=== PATIENT | female | born 1985 | race Caucasian/White ===

== ENCOUNTER 2016-05-16 12:38 | Outpatient (RCR) | payer BC ==
[~2016-05-16 12:38] MED LIST: ATEN25TA PO; BIRTH CONTROL; CEPH500C PO; CPR500T PO; DOXY100C2 PO; HYDR-2890 PO; HYDR1TAB PO; MEDR150D8 IM; METH4TAB PO; MULT-141 PO
--- OUTSIDE RECORDS SUMMARY | 2016-05-16 12:41 | XMS REPORT | Continuity of Care Document ---
Author Author [facility] Organization [facility] Address Unknown Phone Unavailable Care Team Providers Care Dispersion Mixer Name Role Phone Taylor Pugh PCP [phone] Source Comments Some departments are not documenting in the electronic medical record. If you do not see the information that you expected, contact Release of Information in the Health Information Management department at [phone] for further assistance in locating additional records.[facility] Active Allergies and Adverse Reactions Allergen Noted Date Severity Reactions Comments Penicillins 01/05/2007 Allergy recorded in SMS: Penicillin Current Medications Not on file Active Problems Not on file Social History Tobacco Use Types Packs/Day Years Used Date Never Assessed Plan of Care Health Maintenance Due Date Last Done Comments Physical (Comprehensive) 1992 Exam Pertussis Vaccine 1996 Tetanus Vaccine 2002 Cervical Cancer Screening 2006 Influenza Vaccine 02/04/2016 Results from Last 3 Months Not on file
== END 2016-08-14 | disposition home or self-care (01) ==
LOC: CARD 12:38
PROVIDERS: ATTEND Nurse Practitioner Family
DX: R00.2 Palpitations (principal); R79.89 Other specified abnormal findings of blood chemistry
CPT/HCPCS: 93225; 93226

== ENCOUNTER 2017-04-11 15:52 | Outpatient (RCR) | payer BC | END 2017-06-08 15:14 | disposition home or self-care (01) | PROVIDERS: ATTEND Nurse Practitioner Family | DX: M92.51 Juvenile osteochondrosis of proximal tibia (principal); M92.52 Juvenile osteochondrosis of tibia tubercle ==

== ENCOUNTER 2017-08-15 19:03 | Emergency (ER) | payer BC ==
[~2017-08-15] VITALS: Ht 157.5 cm; Wt 61.7 kg
[2017-08-15] MEDS ORDERED: NS IV 1000 ML 1,000 ML IV ONE (19:26)
[2017-08-15] MEDS ORDERED: meTOprolol 5 MG/5 ML (LOPRESSOR) VIAL IV ONE (19:30)
[2017-08-15 19:47] LABS: BASOPHILS % (AUTO) 0 % (0-10); EOSINOPHILS # (AUTO) 0.1 10^3/uL (0.0-0.3); EOSINOPHILS % (AUTO) 1 % (0-10); HEMATOCRIT 43 % (35-52); HEMOGLOBIN 14.5 G/DL (11.5-16.0); LYMPHOCYTES # (AUTO) 2.4 X 10^3 (1.0-4.0); LYMPHOCYTES % (AUTO) 20 % (12-44); MEAN CORPUSCULAR HEMOGLOBIN 30 PG (25-34); MEAN CORPUSCULAR HGB CONC 34 G/DL (32-36); MEAN CORPUSCULAR VOLUME 88 FL (80-99); MEAN PLATELET VOLUME 11.1 FL (7.4-10.4); MONOCYTES # (AUTO) 0.9 X 10^3 (0.0-1.0); MONOCYTES % (AUTO) 8 % (0-12); NEUTROPHILS # (AUTO) 8.5 X 10^3 (1.8-7.8); NEUTROPHILS % (AUTO) 71 % (42-75); PLATELET COUNT 257 10^3/uL (130-400); RED BLOOD COUNT 4.85 10^6/uL (4.35-5.85); RED CELL DISTRIBUTION WIDTH 13.4 % (10.0-14.5); WHITE BLOOD COUNT 11.9 10^3/uL (4.3-11.0)
--- NOTE | 2017-08-15 19:51 | ED Cardiac General ---
History of Present Illness General Stated Complaint: MUSCLE WEAKNESS;HEART PROBLEMS Source: patient Exam Limitations: no limitations History of Present Illness Date Seen by Provider: Aug 15, 2017 Time Seen by Provider: 19:16 Initial Comments Here with report of palpitations and tachycardia. Has history of SVT. She has not been on any meds for this for several years and has been doing fine. She did drink some coffee today and did do a workout that was mostly weights and not cardio. Afterwards she had the episodes of dictations and tachycardia. These are still occurring. Denies recent surgery or trauma. She did have a trip last week in which she flew but these were shorter hops. Denies pain in her legs. Feels anxious with palpitations. Denies nausea, vomiting or diaphoresis. Timing/Duration: 1 hour Severity: moderate Location: central Activities at Onset: none Prior CP/Workup: other (SVT) Modifying Factors: worse with exercise, improves with rest NTG SL CUSTOMER LOYALTY REPRESENTATIVE: No ASA po CUSTOMER LOYALTY REPRESENTATIVE: No Associated Systoms: No Chest Pain, No Cough, No Fever/Chills, No Nausea/ Vomiting, No Shortness of Air, No Weakness Allergies and Home Medications Allergies Coded Allergies: Penicillins (Unverified Allergy, Unknown, 02/05/14) Home Medications Medroxyprogesterone Acetate 150 Mg/1 Ml Syringe, 150 MG IM monthly, (Reported) Multivit with Calcium,Iron,Min 1 Each Tablet, 1 EACH PO DAILY, (Reported) Patient Home Medication List Home Medication List Reviewed: Yes Review of Systems Constitutional: see HPI, No chills, No fever EENTM: No Symptoms Reported Respiratory: No Symptoms Reported Cardiovascular: See HPI, Denies Chest Pain, Denies Irregular Heart Rate, Palpitations, Denies Syncope Gastrointestinal: Denies Nausea, Denies Vomiting Genitourinary: No Symptoms Reported Musculoskeletal: no symptoms reported All Other Systems Reviewed Negative Unless Noted: Yes Past Wtldova-Hnsewy-Qbjgjf Hx Patient Social History Alcohol Use: Denies Use Recreational Drug Use: No Smoking Status: Never a Smoker Recent Foreign Travel: No Contact w/Someone Who Travel: No Recent Hopitalizations: No Immunizations Up To Date Date of Pneumonia Vaccine: Apr 05, 2011 Date of Influenza Vaccine: Mar 28, 2016 Seasonal Allergies Seasonal Allergies: Yes Surgeries History of Surgeries: Yes Surgeries: Section, Tonsillectomy Respiratory History of Respiratory Disorde: No Cardiovascular History of Cardiac Disorders: Yes Cardiac Disorders: Palpitations Neurological History of Neurological Disord: No Reproductive System Hx Reproductive Disorders: No Sexually Transmitted Disease: No HIV/AIDS: No Reviewed Nursing Assessment Reviewed/Agree w Nursing PMH: Yes Family Medical History Significant Family History: No Pertinent Family Hx Physical Exam Vital Signs Capillary Refill : General Appearance: No Apparent Distress, WD/WN HEENT: PERRL/EOMI, Pharynx Normal Neck: Non Tender, Supple Respiratory: Lungs Clear, Normal Breath Sounds Cardiovascular: No Edema, No Murmur, Tachycardia (105-120 and sinus on monitor) Gastrointestinal: Normal Bowel Sounds, Non Tender, Soft Extremity: Normal Range of Motion, Non Tender Neurologic/Psychiatric: Alert, Oriented x3 Skin: Normal Color, Warm/Dry Progress/Results/Core Measures Results/Orders Lab Results Laboratory Tests Test 08/15/17 19:37 Range/Units White Blood Count 11.9 H 4.3-11.0 10^3/uL Red Blood Count 4.85 4.35-5.85 10^6/uL Hemoglobin 14.5 11.5-16.0 G/DL Hematocrit 43 35-52 % Mean Corpuscular Volume 88 80-99 FL Mean Corpuscular Hemoglobin 30 25-34 PG Mean Corpuscular Hemoglobin Concent 34 32-36 G/DL Red Cell Distribution Width 13.4 10.0-14.5 % Platelet Count 257 130-400 10^3/uL Mean Platelet Volume 11.1 H 7.4-10.4 FL Neutrophils (%) (Auto) 71 42-75 % Lymphocytes (%) (Auto) 20 12-44 % Monocytes (%) (Auto) 8 0-12 % Eosinophils (%) (Auto) 1 0-10 % Basophils (%) (Auto) 0 0-10 % Neutrophils # (Auto) 8.5 H 1.8-7.8 X 10^3 Lymphocytes # (Auto) 2.4 1.0-4.0 X 10^3 Monocytes # (Auto) 0.9 0.0-1.0 X 10^3 Eosinophils # (Auto) 0.1 0.0-0.3 10^3/uL Basophils # (Auto) 0.0 0.0-0.1 10^3/uL D-Dimer < 0.27 0.00-0.49 UG/ML Sodium Level 138 135-145 MMOL/L Potassium Level 3.3 L 3.6-5.0 MMOL/L Chloride Level 103 98-107 MMOL/L Carbon Dioxide Level 24 21-32 MMOL/L Anion Gap 11 5-14 MMOL/L Blood Urea Nitrogen 9 7-18 MG/DL Creatinine 0.81 0.60-1.30 MG/DL Estimat Glomerular Filtration Rate > 60 BUN/Creatinine Ratio 11 Glucose Level 98 70-105 MG/DL Calcium Level 9.5 8.5-10.1 MG/DL Magnesium Level 2.0 1.8-2.4 MG/DL Total Bilirubin 0.6 0.1-1.0 MG/DL Aspartate Amino Transf (AST/SGOT) 27 5-34 U/L Alanine Aminotransferase (ALT/SGPT) 18 0-55 U/L Alkaline Phosphatase 71 40-136 U/L Troponin I < 0.30 <0.30 NG/ML Total Protein 7.4 6.4-8.2 GM/DL Albumin 4.7 H 3.2-4.5 GM/DL My Orders Orders - JENNIE ARAMBULA MD Metoprolol Tartrate Injection (Lopressor (08/15/17 19:30) Metoprolol Succinate (Xl) Tab (Toprol Xl (08/15/17 19:30) Cbc With Automated Diff (08/15/17 19:26) Comprehensive Metabolic Panel (08/15/17 19:26) Fibrin Degradation Products (08/15/17 19:26) Magnesium (08/15/17 19:26) Troponin I (08/15/17 19:26) Saline Lock/Iv-Start (08/15/17 19:26) Ns Iv 1000 Ml (Sodium Chloride 0.9%) (08/15/17 19:26) Medications Given in ED Current Medications Medications Dose Ordered Sig/Munira Route Start Time Stop Time Status Last Admin Dose Admin Metoprolol Succinate 25 mg ONCE ONCE PO 08/15/17 19:30 08/15/17 19:31 DC 08/15/17 19:53 25 MG Sodium Chloride 1,000 ml @ 0 mls/hr Q0M ONCE IV 08/15/17 19:26 08/15/17 19:29 DC 08/15/17 19:53 0 MLS/HR Progress Note : Progress Note Seen and evaluated. IV, labs, EKG ordered. Normal saline 1 L bolus. Orders for IV metoprolol 5 mg 1 followed by Toprol-XL 25 mg by mouth 1. Patient's heart rate is improving a little bit so we will hold IV version at this point and just give the oral. Monitor patient. 2028: Heart rate in the 70s and 90s and feeling much better. She will follow-up with her sock and stocking ironer. Prescription for outpatient metoprolol given. Discharged home with return precautions. Patient verbalize understanding instructions and agreement with plan. ECG Initial ECG Impression Date: Aug 15, 2017 Initial ECG Impression Time: 19:16 Initial ECG Rate: 83 Initial ECG Rhythm: Normal Sinus Comment Sinus rhythm with normal axis. No evidence of ST elevation IA. Similar to 09 May 2016. Interpreted by me. Departure Impression Impression: Primary Impression: Paroxysmal atrial tachycardia Disposition: HOME, SELF-CARE Condition: Improved Departure-Patient Inst. Decision time for Depature: 20:30 Referrals: JOSE WEBB APRN (PCP) Primary Care Physician [facility] (Family) Primary Care Physician Patient Instructions: Palpitations (DC), Paroxysmal Supraventricular Tachycardia (DC) Add. Discharge Instructions: Take medications as directed. Follow-up with your sock and stocking ironer within one week for recheck and further evaluation. Return for worse pain, fever, vomiting, weakness, breathing problems or other concerns as needed. You should limit caffeine use in your diet. Drink plenty of fluids and eat a normal diet otherwise. Scripts Metoprolol Tartrate (Metoprolol Tartrate) 25 Mg Tablet 25 MG PO BID, #60 TAB 0 Refills Prov: JENNIE ARAMBULA MD 08/15/17 JENNIE ARAMBULA MD Aug 15, 2017 19:51
[2017-08-15 20:07] LABS: ALANINE AMINOTRANSFERASE 18 U/L (0-55); ALBUMIN 4.7 GM/DL (3.2-4.5); ALKALINE PHOSPHATASE 71 U/L (40-136); BILIRUBIN,TOTAL 0.6 MG/DL (0.1-1.0); BUN/CREATININE RATIO 11; CALCIUM 9.5 MG/DL (8.5-10.1); CARBON DIOXIDE 24 MMOL/L (21-32); CHLORIDE 103 MMOL/L (98-107); CREATININE SERUM 0.81 MG/DL (0.60-1.30); GFR ESTIMATED > 60; GLUCOSE 98 MG/DL (70-105); POTASSIUM 3.3 MMOL/L (3.6-5.0); SODIUM 138 MMOL/L (135-145); TOTAL PROTEIN 7.4 GM/DL (6.4-8.2)
[2017-08-15] MEDS ORDERED: METO-333 PO (20:32)
[2017-08-15 20:49] VITALS: BP 111/79
== END 2017-08-15 20:49 | disposition home or self-care (01) ==
LOC: EDUNIT# 19:03 → ER 19:05
DX: I47.1 Supraventricular tachycardia (principal); Z88.0 Allergy status to penicillin; Z90.89 Acquired absence of other organs; Z87.59 Personal history of other complications of pregnancy, childbirth and the puerperium
CPT/HCPCS: 36415; 80053; 83735; 84484; 85025; 85379; 93005; 96360

== ENCOUNTER 2017-08-18 11:09 | Emergency (ER) | payer BC ==
[~2017-08-18] VITALS: Ht 160 cm; Wt 63.5 kg
[~2017-08-18 11:09] MED LIST changes: +METO-333 PO
--- OUTSIDE RECORDS SUMMARY | 2017-08-18 11:16 | XMS REPORT | Clinical Summary ---
Author Author [facility] Organization [facility] Address Unknown Phone Unavailable Care Team Providers Care Felting Machine Operator Helper Name Role Phone Taylor Pugh DO PCP Magalis Momin MD 100 Source Comments Some departments are not documenting in the electronic medical record. If you do not see the information that you expected, contact Release of Information in the Health Information Management department at [phone] for further assistance in locating additional records.[facility] Allergies Active Allergy Reactions Severity Noted Date Comments Penicillins 01/05/2007 Allergy recorded in SMS: Penicillin Current Medications Not on file Active Problems Not on file Social History Tobacco Use Types Packs/Day Years Used Date Never Assessed Sex Assigned at Date Recorded Not on file Last Filed Vital Signs Not on file Plan of Treatment Health Maintenance Due Date Last Done Comments PHYSICAL (COMPREHENSIVE) 1992 EXAM PERTUSSIS VACCINE 1996 HIV SCREENING 2000 TETANUS VACCINE 2002 CERVICAL CANCER SCREENING 2015 INFLUENZA VACCINE 03/05/2018 Results Not on filefrom Last 3 Months
--- OUTSIDE RECORDS SUMMARY | 2017-08-18 11:21 | XMS REPORT | Continuity of Care Document ---
Author Author [facility] Organization [facility] Address Unknown Phone Unavailable Allergies Active Description Code Type Severity Reaction Onset Reported/Identified Relationship to Patient Clinical Status Yes Penicillins [id number] Drug Allergy Unknown N/A 02/05/2014 Medications There is no data. 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 05/07/2011 Ot 462 ACUTE PHARYNGITIS 05/07/2011 Ot 528.3 CELLULITIS/ ABSCESS MOUTH 05/07/2011 Ot 780.2 SYNCOPE AND COLLAPSE 10/11/2011 Ot 493.90 ASTHMA, UNSPECIFIED 10/11/2011 Ot 786.2 COUGH 02/07/2012 Ot 620.2 OVARIAN CYST NEC/NOS 02/07/2012 Ot 789.04 ABDOMINAL PAIN, LEFT LOWER QUADRANT 02/05/2014 YONATHAN GEORGE DO Ot 599.70 HEMATURIA, UNSPECIFIED 02/05/2014 YONATHAN GEORGE DO Ot 789.04 ABDOMINAL PAIN, LEFT LOWER QUADRANT 05/10/2016 YONATHAN GEORGE DO Ot R00.2 PALPITATIONS 05/10/2016 YONATHAN GEORGE DO Ot R94.6 ABNORMAL RESULTS OF THYROID FUNCTION ALON 05/10/2016 YONATHAN GEORGE DO Ot R00.2 PALPITATIONS 05/10/2016 YONATHAN GEORGE DO Ot R94.6 ABNORMAL RESULTS OF THYROID FUNCTION ALON 06/15/2016 JOSE WEBB APRN Ot R00.2 PALPITATIONS 06/15/2016 JOSE WEBB APRN Ot R79.89 OTHER SPECIFIED ABNORMAL FINDINGS OF BLO 08/14/2016 JOSE WEBB APRN Ot R00.2 PALPITATIONS 08/14/2016 JOSE WEBB APRN Ot R79.89 OTHER SPECIFIED ABNORMAL FINDINGS OF BLO 03/17/2017 WEBB, JOSE R X RAY TECHNOLOGIST Ot 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 03/17/2017 JOSE WEBB R X RAY TECHNOLOGIST Ot 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 04/24/2017 WEBB, JOSE R X RAY TECHNOLOGIST Ot 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 04/24/2017 WEBBJOSE Wilkinson R X RAY TECHNOLOGIST Ot 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 Results Test Result Range Complete blood count (CBC) with automated white blood cell (WBC) differential - 05/09/16 23:30 Blood leukocytes automated count (number/volume) 8.3 10*3/uL 4.3-11.0 Blood erythrocytes automated count (number/volume) 4.96 10*6/uL 4.35-5.85 Venous blood hemoglobin measurement (mass/volume) 14.6 g/dL 11.5-16.0 Blood hematocrit (volume fraction) 44 % 35-52 Automated erythrocyte mean corpuscular volume 89 [foz_us] 80-99 Automated erythrocyte mean corpuscular hemoglobin (mass per erythrocyte) 29 pg 25-34 Automated erythrocyte mean corpuscular hemoglobin concentration measurement ( mass/volume) 33 g/dL 32-36 Automated erythrocyte distribution width ratio 13.2 % 10.0-14.5 Automated blood platelet count (count/volume) 234 10*3/uL 130-400 Automated blood platelet mean volume measurement 11.4 [foz_us] 7.4-10.4 Automated blood neutrophils/100 leukocytes 50 % 42-75 Automated blood lymphocytes/100 leukocytes 37 % 12-44 Blood monocytes/100 leukocytes 10 % 0-12 Automated blood eosinophils/100 leukocytes 2 % 0-10 Automated blood basophils/100 leukocytes 0 % 0-10 Blood neutrophils automated count (number/volume) 4.2 10*3 1.8-7.8 Blood lymphocytes automated count (number/volume) 3.1 10*3 1.0-4.0 Blood monocytes automated count (number/volume) 0.9 10*3 0.0-1.0 Automated eosinophil count 0.2 10*3/uL 0.0-0.3 Automated blood basophil count (count/volume) 0.0 10*3/uL 0.0-0.1 Fibrin D-dimer FEU measurement in platelet poor plasma (mass/volume) - 23:30 Fibrin D-dimer FEU measurement in platelet poor plasma (mass/volume) < ug/mL 0.00-0.49 Comprehensive metabolic panel - 05/09/16 23:30 Serum or plasma sodium measurement (moles/volume) 144 mmol/L 135-145 Serum or plasma potassium measurement (moles/volume) 3.6 mmol/L 3.6-5.0 Serum or plasma chloride measurement (moles/volume) 110 mmol/L 98-107 Carbon dioxide 24 mmol/L 21-32 Serum or plasma anion gap determination (moles/volume) 10 mmol/L 5-14 Serum or plasma urea nitrogen measurement (mass/volume) 11 mg/dL 7-18 Serum or plasma creatinine measurement (mass/volume) 0.77 mg/dL 0.60-1.30 Serum or plasma urea nitrogen/creatinine mass ratio 14 NRG Serum or plasma creatinine measurement with calculation of estimated glomerular filtration rate > NRG Serum or plasma glucose measurement (mass/volume) 88 mg/dL 70-105 Serum or plasma calcium measurement (mass/volume) 9.3 mg/dL 8.5-10.1 Serum or plasma total bilirubin measurement (mass/volume) 0.6 mg/dL 0.1-1.0 Serum or plasma alkaline phosphatase measurement (enzymatic activity/volume) 94 U/L 40-136 Serum or plasma aspartate aminotransferase measurement (enzymatic activity/ volume) 15 U/L 5-34 Serum or plasma alanine aminotransferase measurement (enzymatic activity/volume ) 10 U/L 0-55 Serum or plasma protein measurement (mass/volume) 7.0 g/dL 6.4-8.2 Serum or plasma albumin measurement (mass/volume) 4.8 g/dL 3.2-4.5 Magnesium - 05/09/16 23:30 Magnesium 2.5 mg/dL 1.8-2.4 Serum or plasma choriogonadotropin ( test) detection - 05/09/16 23:30 Serum or plasma choriogonadotropin ( test) detection NEGATIVE NEGATIVE Serum or plasma lithium measurement (moles/volume) - 05/09/16 23:30 BNP level 13.3 pg/mL <100.0 Serum or plasma troponin i.cardiac measurement (mass/volume) - 05/09/16 23:30 Serum or plasma troponin i.cardiac measurement (mass/volume) < ng/ mL <0.30 THYROID STIMULATING HORMONE - 05/09/16 23:30 THYROID STIMULATING HORMONE 5.53 u[iU]/mL 0.35-4.94 Urine drug screening test - 05/09/16 23:50 Urine phencyclidine detection by screening method NEGATIVE NEGATIVE Urine benzodiazepines detection by screening method NEGATIVE NEGATIVE Urine cocaine detection NEGATIVE NEGATIVE Urine amphetamines detection by screening method NEGATIVE NEGATIVE Urine methamphetamine detection by screening method NEGATIVE NEGATIVE Urine cannabinoids detection by screening method NEGATIVE NEGATIVE Urine opiates detection by screening method NEGATIVE NEGATIVE Urine barbiturates detection NEGATIVE NEGATIVE Screening urine tricyclic antidepressants detection NEGATIVE NEGATIVE Urine methadone detection by screening method NEGATIVE NEGATIVE Urine oxycodone detection NEGATIVE NEGATIVE Urine propoxyphene detection NEGATIVE NEGATIVE Complete blood count (CBC) with automated white blood cell (WBC) differential - 08/15/17 19:37 Blood leukocytes automated count (number/volume) 11.9 10*3/uL 4.3-11.0 Blood erythrocytes automated count (number/volume) 4.85 10*6/uL 4.35-5.85 Venous blood hemoglobin measurement (mass/volume) 14.5 g/dL 11.5-16.0 Blood hematocrit (volume fraction) 43 % 35-52 Automated erythrocyte mean corpuscular volume 88 [foz_us] 80-99 Automated erythrocyte mean corpuscular hemoglobin (mass per erythrocyte) 30 pg 25-34 Automated erythrocyte mean corpuscular hemoglobin concentration measurement ( mass/volume) 34 g/dL 32-36 Automated erythrocyte distribution width ratio 13.4 % 10.0-14.5 Automated blood platelet count (count/volume) 257 10*3/uL 130-400 Automated blood platelet mean volume measurement 11.1 [foz_us] 7.4-10.4 Automated blood neutrophils/100 leukocytes 71 % 42-75 Automated blood lymphocytes/100 leukocytes 20 % 12-44 Blood monocytes/100 leukocytes 8 % 0-12 Automated blood eosinophils/100 leukocytes 1 % 0-10 Automated blood basophils/100 leukocytes 0 % 0-10 Blood neutrophils automated count (number/volume) 8.5 10*3 1.8-7.8 Blood lymphocytes automated count (number/volume) 2.4 10*3 1.0-4.0 Blood monocytes automated count (number/volume) 0.9 10*3 0.0-1.0 Automated eosinophil count 0.1 10*3/uL 0.0-0.3 Automated blood basophil count (count/volume) 0.0 10*3/uL 0.0-0.1 Fibrin D-dimer FEU measurement in platelet poor plasma (mass/volume) - 19:37 Fibrin D-dimer FEU measurement in platelet poor plasma (mass/volume) < ug/mL 0.00-0.49 Comprehensive metabolic panel - 08/15/17 19:37 Serum or plasma sodium measurement (moles/volume) 138 mmol/L 135-145 Serum or plasma potassium measurement (moles/volume) 3.3 mmol/L 3.6-5.0 Serum or plasma chloride measurement (moles/volume) 103 mmol/L 98-107 Carbon dioxide 24 mmol/L 21-32 Serum or plasma anion gap determination (moles/volume) 11 mmol/L 5-14 Serum or plasma urea nitrogen measurement (mass/volume) 9 mg/dL 7-18 Serum or plasma creatinine measurement (mass/volume) 0.81 mg/dL 0.60-1.30 Serum or plasma urea nitrogen/creatinine mass ratio 11 NRG Serum or plasma creatinine measurement with calculation of estimated glomerular filtration rate > NRG Serum or plasma glucose measurement (mass/volume) 98 mg/dL 70-105 Serum or plasma calcium measurement (mass/volume) 9.5 mg/dL 8.5-10.1 Serum or plasma total bilirubin measurement (mass/volume) 0.6 mg/dL 0.1-1.0 Serum or plasma alkaline phosphatase measurement (enzymatic activity/volume) 71 U/L 40-136 Serum or plasma aspartate aminotransferase measurement (enzymatic activity/ volume) 27 U/L 5-34 Serum or plasma alanine aminotransferase measurement (enzymatic activity/volume ) 18 U/L 0-55 Serum or plasma protein measurement (mass/volume) 7.4 g/dL 6.4-8.2 Serum or plasma albumin measurement (mass/volume) 4.7 g/dL 3.2-4.5 Magnesium - 08/15/17 19:37 Magnesium 2.0 mg/dL 1.8-2.4 Serum or plasma troponin i.cardiac measurement (mass/volume) - 08/15/17 19:37 Serum or plasma troponin i.cardiac measurement (mass/volume) < ng/ mL <0.30 Encounters ACCT No. Visit Date/Time Discharge Status Pt. Type Provider Facility Loc./Unit Complaint [id number] 08/15/2017 19:05:00 08/15/2017 20:49:00 DIS Outpatient JENNIE ARAMBULA MD [facility] ER MUSCLE WEAKNESS;HEART PROBLEMS [id number] 04/11/2017 15:52:00 06/08/2017 15:14:00 DIS Outpatient JOSE WEBB APRN [facility] REHAB B KNEE PAIN; RENE -SCHLATTERS DISEASE OF LE'S [id number] 08/15/2016 12:30:00 08/15/2016 23:59:59 CLS Preadmit JOSE WEBB APRN [facility] CARD ABN TSH [id number] 05/16/2016 12:38:00 08/14/2016 00:01:00 DIS Outpatient JOSE WEBB APRN [facility] CARD ABN TSH [id number] 05/09/2016 23:16:00 05/10/2016 01:05:00 DIS Emergency YONATHAN GEORGE DO [facility] ER HEART RACING [id number] 02/05/2014 00:15:00 02/05/2014 01:41:00 DIS Emergency YONATHAN GEORGE DO [facility] ER ABD PAIN LEFT SIDE,BACK PAIN,NAUSEA [id number] 08/18/2017 11:12:00 ACT Emergency JENNIE ARAMBULA MD [facility] ER HX OF SVT,NEW MED REACTION VOMITING,SOA [id number] 02/07/2012 15:32:00 Document Registration [id number] 10/10/2011 23:59:00 Document Registration [id number] 05/06/2011 19:58:00 Document Registration
--- NOTE | 2017-08-18 11:56 | ED General ---
General Chief Complaint: Cardiac/General Problems Stated Complaint: HX OF SVT,NEW MED REACTION VOMITING,SOA Nursing Triage Note: PATIENT STATES THAT SHE WAS STARTED ON METOPROLOL TARTRATE 25MG BID ON MONDAY FOR SVT. SHE HAS HX OF SVT AND A PREVIOUS ABLATION. 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 SHE IS CONCERNED THAT SHE THREW UP HER MEDICINE. SHE IS STILL HAVIG A HARD TIME TAKING A DEEP BREATH. HR IS 50S, O2 SAT 98%. Nursing Sepsis Screen: No Definite Risk Source of Information: Patient, Family, Spouse Exam Limitations: No Limitations History of Present Illness Date Seen by Provider: Aug 18, 2017 Time Seen by Provider: 11:56 Initial Comments 32-year-old female patient presents to the emergency department with complaints of vomiting 1 this a.m. and diarrhea. Patient does report left lower rib pain. Patient states it is difficult to take a deep breath due to the increased left rib pain. Denies any known injury. Patient was seen in the emergency department on 08/15/17 for PSVT and was started on metoprolol tartrate 25 mg twice a day. Patient does have a history of previous ablation for SVT. 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 Timing/Duration: 4-6 Hours Modifying Factors: worse with Movement Allergies and Home Medications Allergies Coded Allergies: Penicillins (Unverified Allergy, Unknown, 02/05/14) Home Medications Medroxyprogesterone Acetate 150 Mg/1 Ml Syringe, 150 MG IM monthly, (Reported) Metoprolol Tartrate 25 Mg Tablet, 25 MG PO BID Prescribed by: JENNIE ARAMBULA on 08/15/172031 Multivit with Calcium,Iron,Min 1 Each Tablet, 1 EACH PO DAILY, (Reported) Ondansetron 8 Mg Tab.rapdis, 8 MG PO Q6H PRN for NAUSEA/VOMITING-1ST LINE Prescribed by: FREDERICK ANSARI on 08/18/17 1352 Patient Home Medication List Home Medication List Reviewed: Yes Constitutional: No chills, No diaphoresis, No dizziness, No fever, No malaise EENTM: no symptoms reported Respiratory: No cough, No dyspnea on exertion, No orthopnea, No phlegm, No short of breath (denies SOA, but states unable to take a full breath due to left rib pain), No stridor, No wheezing, other (Left rib pain inferior to the breast radiating around to the back) Cardiovascular: No chest pain, No edema, No palpitations, No syncope Gastrointestinal: No abdominal pain, No constipation, diarrhea, No hematemesis , No heartburn, loss of appetite, No melena, nausea, vomiting (x1 this AM) Genitourinary: no symptoms reported : No Musculoskeletal: see HPI Skin: no symptoms reported Psychiatric/Neurological: No Symptoms Reported All Other Systems Reviewed Negative Unless Noted: Yes (Negative excepted noted.) Past Fzbbwan-Rwqcry-Jbxyzk Hx Patient Social History Alcohol Use: Rarely Uses Recreational Drug Use: No Smoking Status: Former Smoker 2nd Hand Smoke Exposure: No Recent Foreign Travel: No Contact w/Someone Who Travel: No Recent Infectious Disease Expo: No Recent Hopitalizations: No Immunizations Up To Date Date of Pneumonia Vaccine: Apr 05, 2011 Date of Influenza Vaccine: Mar 28, 2016 Seasonal Allergies Seasonal Allergies: Yes Surgeries History of Surgeries: Yes (ablation for SVT) Surgeries: Section Respiratory History of Respiratory Disorde: No Cardiovascular History of Cardiac Disorders: Yes Cardiac Disorders: Palpitations Neurological History of Neurological Disord: No Reproductive System : No Hx Reproductive Disorders: No Sexually Transmitted Disease: No HIV/AIDS: No Female Reproductive Disorders: Denies Genitourinary History of Genitourinary Disor: No Gastrointestinal History of Gastrointestinal Di: No Musculoskeletal History of Musculoskeletal Dis: No Endocrine History of Endocrine Disorders: No HEENT History of HEENT Disorders: No Cancer History of Cancer: No Psychosocial History of Psychiatric Problem: No Integumentary History of Skin or Integumenta: No Blood Transfusions History of Blood Disorders: No Reviewed Nursing Assessment Reviewed/Agree w Nursing PMH: Yes Family Medical History Significant Family History: No Pertinent Family Hx Physical Exam Vital Signs Vital Signs - First Documented 08/18/17 11:18 Temp 98.0 Pulse 51 Resp 16 B/P (MAP) 138/79 (98) Pulse Ox 98 Capillary Refill : Less Than 3 Seconds General Appearance: No Apparent Distress, WD/WN HEENT: PERRL/EOMI, Pharynx Normal Neck: Full Range of Motion, Normal Inspection, Non Tender, Supple Respiratory: Lungs Clear, Normal Breath Sounds, No Accessory Muscle Use, No Respiratory Distress, Other (left anterior, lateral, and posterior 8th/9th ribs TTP without deformity or swelling.) Cardiovascular: Regular Rate, Rhythm, No Edema, No Murmur, Normal Peripheral Pulses Gastrointestinal: Normal Bowel Sounds, No Organomegaly, Non Tender, Soft Back: Normal Inspection, No CVA Tenderness Extremity: Normal Capillary Refill, No Calf Tenderness, No Pedal Edema Neurologic/Psychiatric: Alert, Oriented x3, Normal Mood/Affect Skin: Normal Color, Warm/Dry Progress/Results/Core Measures Suspected Sepsis Recent Fever Within 48 Hours: No Infection Criteria Present: None New/Unexplained Altered Menta: No Sepsis Screen: No Definite Risk Sepsis Diagnosis: SIRS Temperature:98.0 Pulse: 51 Respiratory Rate: 16 Laboratory Tests 08/18/17 12:27: White Blood Count 7.4 Blood Pressure 138 /79 Mean: 98 Laboratory Tests 08/18/17 12:27: Creatinine 0.76, Platelet Count 230, Total Bilirubin 0.6 Results/Orders Lab Results My Orders Medications Given in ED Vital Signs/I&O Capillary Refill : Less Than 3 Seconds Blood Pressure Mean: 98 ECG Initial ECG Impression Date: Aug 18, 2017 Initial ECG Impression Time: 12:18 Initial ECG Rate: 51 Initial ECG Rhythm: S.Arcadio Initial ECG Intervals: Normal Initial ECG Impression: Normal Initial ECG Comparisson: Unchanged Comment Sinus bradycardia. Left atrial abnormality may be related to age and normally. ECG reviewed with Dr. Montano. Diagnostic Imaging Diagonstic Imaging: Xray Plain Films/CT/US/NM/MRI: chest Comments FINDINGS: PA and lateral chest. The lungs are well aerated. There are no infiltrates. There are no masses. The heart is not enlarged. There is no hilar adenopathy. No pneumothorax or pleural effusion. No bony abnormalities. IMPRESSION: Normal PA and lateral chest. Dictated by: Dictated on workstation # [id number] Reviewed: Reviewed by Me (radiology report reviewed by me) Departure Communication (Admissions) Progress Notes All laboratory and diagnostic findings discussed with the patient and family. Patient reports feeling much better with medications. Plan for discharge to home. Patient to return immediately for worsened symptoms or any other concerns. Impression Impression: Primary Impression: Nausea and vomiting Qualified Codes: R11.2 - Nausea with vomiting, unspecified Additional Impressions: Diarrhea Qualified Codes: R19.7 - Diarrhea, unspecified Sprained rib Qualified Codes: S23.41XA - Sprain of ribs, initial encounter History of PSVT (paroxysmal supraventricular tachycardia) Disposition: HOME, SELF-CARE Condition: Improved Departure-Patient Inst. Decision time for Depature: 13:51 Referrals: JOSE WEBB APRN (PCP) Primary Care Physician [facility] (Family) Primary Care Physician Patient Instructions: Viral Gastroenteritis, Adult (DC) Add. Discharge Instructions: All discharge instructions reviewed with patient and/or family. Voiced understanding. Medications as instructed. Tylenol extra strength over-the- counter as directed for pain. Ibuprofen 800 mg by mouth every 8 hours as needed for pain. Ice packs or heating pads as needed. Consider seeing a chiropractor for the rib sprain if pain continues. Avoid heavy lifting, pushing , pulling, or twisting for 3-5 days. Increase activity as tolerated. Follow- up with Amelia Webb APRN on Monday as previously scheduled. Return to the emergency department immediately for worsened symptoms, chest pain, palpitations , vomiting, vomiting blood, rectal bleeding, black stools, diarrhea, abdominal swelling, fever, or any other concerns. Scripts Ondansetron (Ondansetron Odt) 8 Mg Tab.rapdis 8 MG PO Q6H Y for NAUSEA/VOMITING-1ST LINE, #14 TAB 0 Refills Prov: FREDERICK ANSARI 08/18/17 Work/School Note: Work Release Form Date Seen in the Emergency Department: Aug 18, 2017 Return to Work: Aug 19, 2017 Restrictions: Return-No Fever (24hrs), Return-No Vomiting(24hrs) FREDERICK ANSARI Aug 18, 2017 11:56
[2017-08-18] MEDS ORDERED: NS IV 1000 ML 1,000 ML IV ONE (12:03)
[2017-08-18] MEDS ORDERED: FAMOTIDINE 20MG/2ML IV (PEPCID) IV STA (12:03)
[2017-08-18] MEDS ORDERED: ONDANSETRON 4 MG/2 ML (SDV) Z0FRAN IVP ONE (12:15)
[2017-08-18] MEDS ORDERED: KETOROLAC 30 MG/ML VIAL IVP STA (12:23)
[2017-08-18] MEDS ORDERED: ORPHENADRINE 60 MG/2 ML (NORFLEX) AMP IV STA (12:23)
[2017-08-18 12:38] LABS: BASOPHILS % (AUTO) 1 % (0-10); EOSINOPHILS # (AUTO) 0.1 10^3/uL (0.0-0.3); EOSINOPHILS % (AUTO) 2 % (0-10); HEMATOCRIT 40 % (35-52); HEMOGLOBIN 13.4 G/DL (11.5-16.0); LYMPHOCYTES # (AUTO) 2.4 X 10^3 (1.0-4.0); LYMPHOCYTES % (AUTO) 33 % (12-44); MEAN CORPUSCULAR HEMOGLOBIN 30 PG (25-34); MEAN CORPUSCULAR HGB CONC 33 G/DL (32-36); MEAN CORPUSCULAR VOLUME 91 FL (80-99); MEAN PLATELET VOLUME 11.5 FL (7.4-10.4); MONOCYTES # (AUTO) 0.7 X 10^3 (0.0-1.0); MONOCYTES % (AUTO) 9 % (0-12); NEUTROPHILS # (AUTO) 4.1 X 10^3 (1.8-7.8); NEUTROPHILS % (AUTO) 55 % (42-75); PLATELET COUNT 230 10^3/uL (130-400); RED BLOOD COUNT 4.42 10^6/uL (4.35-5.85); RED CELL DISTRIBUTION WIDTH 13.1 % (10.0-14.5); WHITE BLOOD COUNT 7.4 10^3/uL (4.3-11.0)
[2017-08-18 12:43] LABS: BILIRUBIN,URINE NEGATIVE (NEGATIVE); CLARITY,URINE CLEAR; COLOR,URINE YELLOW; GLUCOSE, URINE (UA) NEGATIVE (NEGATIVE); KETONES,URINE NEGATIVE (NEGATIVE); LEUKOCYTE ESTERASE ,URINE NEGATIVE (NEGATIVE); NITRITE,URINE NEGATIVE (NEGATIVE); PH,URINE 7 (5-9); PROTEIN,URINE NEGATIVE (NEGATIVE); UROBILINOGEN,URINE NORMAL (NORMAL)
[2017-08-18 12:50] LABS: BACTERIA,URINE NEGATIVE /HPF
--- NOTE | 2017-08-18 12:50 | Diagnostic Imaging Report ---
INDICATION: Shortness of breath over the last several days. COMPARISON: 05/10/2016. FINDINGS: PA and lateral chest. The lungs are well aerated. There are no infiltrates. There are no masses. The heart is not enlarged. There is no hilar adenopathy. No pneumothorax or pleural effusion. No bony abnormalities. IMPRESSION: Normal PA and lateral chest. Dictated by: Dictated on workstation # [id number]
[2017-08-18 12:59] LABS: ALANINE AMINOTRANSFERASE 17 U/L (0-55); ALBUMIN 4.2 GM/DL (3.2-4.5); ALKALINE PHOSPHATASE 53 U/L (40-136); BILIRUBIN,TOTAL 0.6 MG/DL (0.1-1.0); BUN/CREATININE RATIO 14; CALCIUM 8.9 MG/DL (8.5-10.1); CARBON DIOXIDE 24 MMOL/L (21-32); CHLORIDE 105 MMOL/L (98-107); CREATINE KINASE 167 U/L (29-168); CREATININE SERUM 0.76 MG/DL (0.60-1.30); GFR ESTIMATED > 60; GLUCOSE 91 MG/DL (70-105); LIPASE 10 U/L (8-78); POTASSIUM 3.9 MMOL/L (3.6-5.0); SODIUM 139 MMOL/L (135-145); TOTAL PROTEIN 6.6 GM/DL (6.4-8.2)
[2017-08-18 13:20] LABS: CREATINE KINASE MB 1.1 NG/ML (<6.6); MYOGLOBIN SERUM 32.4 NG/ML (10.0-92.0); TSH (THYROID ANALYZER) 1.56 UIU/ML (0.35-4.94)
[2017-08-18] MEDS ORDERED: ONDA8TAB13 PO (13:52)
[2017-08-18 14:05] VITALS: BP 138/79
== END 2017-08-18 14:06 | disposition home or self-care (01) ==
LOC: EDUNIT# 11:09 → ER 11:12
DX: S23.41XA Sprain of ribs, initial encounter (principal); R11.2 Nausea with vomiting, unspecified; R19.7 Diarrhea, unspecified; I47.1 Supraventricular tachycardia; Z87.59 Personal history of other complications of pregnancy, childbirth and the puerperium; Z87.891 Personal history of nicotine dependence; Z88.0 Allergy status to penicillin; X58.XXXA Exposure to other specified factors, initial encounter
CPT/HCPCS: 36415; 71046; 80053; 81000; 82550; 82553; 83690; 83874; 84443; 84484; 84703; 85025; 85379; 86141; 93005; 93041; 96361; 96374; 96375

== ENCOUNTER 2017-12-02 13:04 | Emergency (ER) | payer BC ==
[~2017-12-02] VITALS: Ht 160 cm; Wt 63.5 kg
[~2017-12-02 13:04] MED LIST changes: +ONDA8TAB13 PO
--- NOTE | 2017-12-02 13:46 | ED Cardiac General ---
History of Present Illness General Chief Complaint: Cardiac/General Problems Stated Complaint: HEART RATE RAPID,SOB,HOT FLASHES Nursing Triage Note: States tht today she has noticed irreg and fast HR. Gets hot flushes and neck pain when ot occurs. States that it is intermittent and she is not feeling it at this time. Had an ablation in . Denies heat, dehydration or caffeine issues. No illness. Source: patient Exam Limitations: no limitations History of Present Illness Date Seen by Provider: Dec 02, 2017 Time Seen by Provider: 13:41 Initial Comments to ER per private vehicle with reports of palpitations. She has a history of SVT with ablation at in 2005. This year she's been having an increasing number of episodes of tachycardia. However, these are usually short-lived and she is able to convert herself with Valsalva maneuvers. She denies any increased use of caffeine, she exercises regularly. She has recently been tapered off of her lowest dose of Synthroid because there is some concern of an autoimmune thyroiditis. She also has an order for PRN metoprolol. she does follow with the [facility] satellite clinic here in [place] every 2 months. Timing/Duration: changing over time Severity: moderate Prior CP/Workup: no prior chest pain NTG SL CHARGE AUTHORIZER: No ASA po CHARGE AUTHORIZER: No Allergies and Home Medications Allergies Coded Allergies: Penicillins (Unverified Allergy, Unknown, 12/02/17) Home Medications Medroxyprogesterone Acetate 150 Mg/1 Ml Syringe, 150 MG IM monthly, (Reported) Metoprolol Tartrate 25 Mg Tablet, 25 MG PO BID Prescribed by: JENNIE ARAMBULA on 08/15/172031 Multivit with Calcium,Iron,Min 1 Each Tablet, 1 EACH PO DAILY, (Reported) Ondansetron 8 Mg Tab.rapdis, 8 MG PO Q6H PRN for NAUSEA/VOMITING-1ST LINE Prescribed by: FREDERICK ANSARI on 08/18/17 1352 Patient Home Medication List Home Medication List Reviewed: Yes Review of Systems Constitutional: see HPI EENTM: No Symptoms Reported Respiratory: No Symptoms Reported Cardiovascular: No Symptoms Reported Gastrointestinal: No Symptoms Reported Genitourinary: No Symptoms Reported Musculoskeletal: no symptoms reported Skin: no symptoms reported Psychiatric/Neurological: No Symptoms Reported Endocrine: No Symptoms Reported Hematologic/Lymphatic: No Symptoms Reported Past Imrolzn-Xfiooz-Scgyid Hx Patient Social History Alcohol Use: Occasionally Uses Recreational Drug Use: No Smoking Status: Former Smoker 2nd Hand Smoke Exposure: No Recent Foreign Travel: No Contact w/Someone Who Travel: No Recent Infectious Disease Expo: No Recent Hopitalizations: No Physical Abuse: No Sexual Abuse: No Mistreated: No Fear: No Immunizations Up To Date Date of Pneumonia Vaccine: Apr 05, 2011 Date of Influenza Vaccine: Mar 28, 2016 Seasonal Allergies Seasonal Allergies: Yes Past Medical History Surgeries: Yes (ablation for SVT) Section Respiratory: No Cardiac: Yes Palpitations Neurological: No Reproductive Disorders: No Female Reproductive Disorders: Denies Sexually Transmitted Disease: No HIV/AIDS: No Genitourinary: No Gastrointestinal: No Musculoskeletal: No Endocrine: No HEENT: No Cancer: No Psychosocial: No Nursing Suicide Risk Score: 0 Integumentary: No Blood Disorders: No Family Medical History No Pertinent Family Hx Physical Exam Vital Signs Vital Signs - First Documented 12/02/17 13:11 Temp 98.0 Pulse 111 Resp 16 B/P (MAP) 139/94 (109) Pulse Ox 100 Capillary Refill : Less Than 3 Seconds General Appearance: No Apparent Distress, WD/WN, Other (healthy, very pleasant , well-appearing. Heart rate is 65 sinus without ectopy at this time.) HEENT: PERRL/EOMI, TMs Normal Neck: Full Range of Motion, Normal Inspection Respiratory: Normal Breath Sounds, No Accessory Muscle Use, No Respiratory Distress Cardiovascular: Regular Rate, Rhythm, Normal Peripheral Pulses Gastrointestinal: Normal Bowel Sounds, Non Tender, Soft Extremity: Normal Capillary Refill, Normal Inspection Neurologic/Psychiatric: Alert, Oriented x3, No Motor/Sensory Deficits Skin: Normal Color, Warm/Dry Progress/Results/Core Measures Results/Orders Lab Results Laboratory Tests Test 12/02/17 13:25 12/02/17 13:59 Range/Units White Blood Count 6.5 4.3-11.0 10^3/uL Red Blood Count 5.04 4.35-5.85 10^6/uL Hemoglobin 15.6 11.5-16.0 G/DL Hematocrit 45 35-52 % Mean Corpuscular Volume 90 80-99 FL Mean Corpuscular Hemoglobin 31 25-34 PG Mean Corpuscular Hemoglobin Concent 35 32-36 G/DL Red Cell Distribution Width 13.6 10.0-14.5 % Platelet Count 236 130-400 10^3/uL Mean Platelet Volume 11.4 H 7.4-10.4 FL Neutrophils (%) (Auto) 45 42-75 % Lymphocytes (%) (Auto) 39 12-44 % Monocytes (%) (Auto) 12 0-12 % Eosinophils (%) (Auto) 3 0-10 % Basophils (%) (Auto) 1 0-10 % Neutrophils # (Auto) 2.9 1.8-7.8 X 10^3 Lymphocytes # (Auto) 2.5 1.0-4.0 X 10^3 Monocytes # (Auto) 0.8 0.0-1.0 X 10^3 Eosinophils # (Auto) 0.2 0.0-0.3 10^3/uL Basophils # (Auto) 0.0 0.0-0.1 10^3/uL Sodium Level 139 135-145 MMOL/L Potassium Level 3.7 3.6-5.0 MMOL/L Chloride Level 103 98-107 MMOL/L Carbon Dioxide Level 21 21-32 MMOL/L Anion Gap 15 H 5-14 MMOL/L Blood Urea Nitrogen 13 7-18 MG/DL Creatinine 0.82 0.60-1.30 MG/DL Estimat Glomerular Filtration Rate > 60 BUN/Creatinine Ratio 16 Glucose Level 98 70-105 MG/DL Calcium Level 9.5 8.5-10.1 MG/DL Total Bilirubin 0.8 0.1-1.0 MG/DL Aspartate Amino Transf (AST/SGOT) 18 5-34 U/L Alanine Aminotransferase (ALT/SGPT) 13 0-55 U/L Alkaline Phosphatase 73 40-136 U/L Total Protein 7.3 6.4-8.2 GM/DL Albumin 4.6 H 3.2-4.5 GM/DL Thyroid Stimulating Hormone (TSH) 1.95 0.35-4.94 UIU/ML Free Thyroxine 1.10 0.70-1.48 NG/DL Serum Test, Qualitative NEGATIVE NEGATIVE Urine Color YELLOW Urine Clarity SLIGHTLY CLOUDY Urine pH 7 5-9 Urine Specific [place] 1.010 L 1.016-1.022 Urine Protein 1+ H NEGATIVE Urine Glucose (UA) NEGATIVE NEGATIVE Urine Ketones NEGATIVE NEGATIVE Urine Nitrite NEGATIVE NEGATIVE Urine Bilirubin NEGATIVE NEGATIVE Urine Urobilinogen NORMAL NORMAL MG/DL Urine Leukocyte Esterase 1+ H NEGATIVE Urine RBC (Auto) NEGATIVE NEGATIVE Urine RBC NONE /HPF Urine WBC NONE /HPF Urine Squamous Epithelial Cells RARE /HPF Urine Crystals NONE /LPF Urine Bacteria TRACE /HPF Urine Casts NONE /LPF Urine Mucus SMALL H /LPF Urine Culture Indicated NO My Orders Orders - KENN AGOSTO APRN Cbc With Automated Diff (12/02/17 13:30) Comprehensive Metabolic Panel (12/02/17 13:30) Ua Culture If Indicated (12/02/17 13:30) Thyroid Stimulating Hormone (12/02/17 13:30) Free T4 (Free Thyroxine) (12/02/17 13:30) Iv [place]-Insert (Order) (12/02/17 13:30) Hcg,Qualitative Serum (12/02/17 13:30) Vital Signs/I&O 12/02/17 13:11 Temp 98.0 Pulse 111 Resp 16 B/P (MAP) 139/94 (109) Pulse Ox 100 Blood Pressure Mean: 109 Departure Impression Primary Impression: Paroxysmal tachycardia, unspecified Disposition: 01 HOME, SELF-CARE Condition: Stable Departure-Patient Inst. Decision time for Depature: 14:35 Referrals: JOSE WEBB APRN (PCP) Primary Care Physician [facility] (Family) Primary Care Physician Patient Instructions: Palpitations (DC) Add. Discharge Instructions: 1. I would go home and take one of your metoprolol tablets.Keep your appointment with cardiology,as they mentioned before it may be time to consider a second ablation if these episodes persist.All discharge instructions reviewed with patient and/or family. Voiced understanding. KENN AGOSTO APRN Dec 02, 2017 13:46
[2017-12-02 13:49] LABS: BASOPHILS % (AUTO) 1 % (0-10); EOSINOPHILS # (AUTO) 0.2 10^3/uL (0.0-0.3); EOSINOPHILS % (AUTO) 3 % (0-10); HEMATOCRIT 45 % (35-52); HEMOGLOBIN 15.6 G/DL (11.5-16.0); LYMPHOCYTES # (AUTO) 2.5 X 10^3 (1.0-4.0); LYMPHOCYTES % (AUTO) 39 % (12-44); MEAN CORPUSCULAR HEMOGLOBIN 31 PG (25-34); MEAN CORPUSCULAR HGB CONC 35 G/DL (32-36); MEAN CORPUSCULAR VOLUME 90 FL (80-99); MEAN PLATELET VOLUME 11.4 FL (7.4-10.4); MONOCYTES # (AUTO) 0.8 X 10^3 (0.0-1.0); MONOCYTES % (AUTO) 12 % (0-12); NEUTROPHILS # (AUTO) 2.9 X 10^3 (1.8-7.8); NEUTROPHILS % (AUTO) 45 % (42-75); PLATELET COUNT 236 10^3/uL (130-400); RED BLOOD COUNT 5.04 10^6/uL (4.35-5.85); RED CELL DISTRIBUTION WIDTH 13.6 % (10.0-14.5); WHITE BLOOD COUNT 6.5 10^3/uL (4.3-11.0)
[2017-12-02 13:53] LABS: ALANINE AMINOTRANSFERASE 13 U/L (0-55); ALBUMIN 4.6 GM/DL (3.2-4.5); ALKALINE PHOSPHATASE 73 U/L (40-136); BILIRUBIN,TOTAL 0.8 MG/DL (0.1-1.0); BUN/CREATININE RATIO 16; CALCIUM 9.5 MG/DL (8.5-10.1); CARBON DIOXIDE 21 MMOL/L (21-32); CHLORIDE 103 MMOL/L (98-107); CREATININE SERUM 0.82 MG/DL (0.60-1.30); GFR ESTIMATED > 60; GLUCOSE 98 MG/DL (70-105); POTASSIUM 3.7 MMOL/L (3.6-5.0); SODIUM 139 MMOL/L (135-145); TOTAL PROTEIN 7.3 GM/DL (6.4-8.2)
[2017-12-02 14:06] LABS: BILIRUBIN,URINE NEGATIVE (NEGATIVE); CLARITY,URINE SLIGHTLY CLOUDY; COLOR,URINE YELLOW; GLUCOSE, URINE (UA) NEGATIVE (NEGATIVE); KETONES,URINE NEGATIVE (NEGATIVE); LEUKOCYTE ESTERASE ,URINE 1+ (NEGATIVE); NITRITE,URINE NEGATIVE (NEGATIVE); PH,URINE 7 (5-9); PROTEIN,URINE 1+ (NEGATIVE); UROBILINOGEN,URINE NORMAL (NORMAL)
[2017-12-02 14:25] LABS: BACTERIA,URINE TRACE /HPF; SQUAMOUS EPITHELIAL CELL,UR RARE /HPF
[2017-12-02 14:38] VITALS: BP 131/83
== END 2017-12-02 14:43 | disposition home or self-care (01) ==
LOC: EDUNIT# 13:04 → ER 13:06
DX: I48.0 Paroxysmal atrial fibrillation (principal); Z87.59 Personal history of other complications of pregnancy, childbirth and the puerperium; Z87.891 Personal history of nicotine dependence; Z88.0 Allergy status to penicillin; Z86.718 Personal history of other venous thrombosis and embolism
CPT/HCPCS: 36415; 80053; 81000; 84439; 84443; 84703; 85027; 93005

== ENCOUNTER 2018-06-24 22:26 | Emergency (ER) | payer BC | END 2018-06-25 00:57 | disposition home or self-care (01) | LOC: ER 22:26 | DX: O26.891 Other specified pregnancy related conditions, first trimester (principal); R10.32 Left lower quadrant pain; Z88.0 Allergy status to penicillin; Z3A.01 Less than 8 weeks gestation of pregnancy; Z98.890 Other specified postprocedural states ==

== ENCOUNTER 2018-10-21 17:35 | Emergency (ER) | payer BC ==
[~2018-10-21] VITALS: Ht 160 cm; Wt 65.8 kg
--- OUTSIDE RECORDS SUMMARY | 2018-10-21 17:40 | XMS REPORT | Clinical Summary ---
Author Author [facility] Organization [facility] Address Unknown Phone Unavailable Care Team Providers Care Laminate Floor Installer Name Role Phone Keaton Taylor DO PCP Magalis Momin MD 100 Source Comments Some departments are not documenting in the electronic medical record. If you d o not see the information that you expected, contact Release of Information in [facility] Information Management department at [phone] for further assistan ce in locating additional records.[facility] Allergies Comments Active Allergy Reactions Severity Noted Date Allergy recorded in SMS: Penicillin Penicillins 01/05/2007 Medications Not on file Active Problems Not on file Social History Date Tobacco Use Types Packs/Day Years Used Never Assessed Sex Assigned at Date Recorded Not on file Industry Job Start Date Occupation Not on file Not on file Not on file Travel End Travel History Travel Start No recent travel history available. Last Filed Vital Signs Not on file Plan of Treatment Health Maintenance Due Date Last Done Comments PHYSICAL (COMPREHENSIVE) 1992 EXAM HIV SCREENING 2000 DTAP/TDAP VACCINES (1 - 2003 Tdap) CERVICAL CANCER SCREENING 2015 INFLUENZA VACCINE 03/05/2019 Results Not on filefrom Last 3 Months
--- OUTSIDE RECORDS SUMMARY | 2018-10-21 17:42 | XMS REPORT | Continuity of Care Document ---
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 34.0-46.6 MCV 90 fL 79-97 MCH 29.7 pg 26.6-33.0 MCHC 33.1 g/dL 31.5-35.7 RDW 12.9 % 12.3-15.4 Platelets 249 x10E3/uL 150-379 Neutrophils 49 % Lymphs 37 % Monocytes 12 % Eos 2 % Basos 0 % Neutrophils (Absolute) 3.3 x10E3/uL 1.4-7.0 Lymphs (Absolute) 2.5 x10E3/uL 0.7-3.1 Monocytes(Absolute) 0.8 x10E3/uL 0.1-0.9 Eos (Absolute) 0.1 x10E3/uL 0.0-0.4 Baso (Absolute) 0.0 x10E3/uL 0.0-0.2 Immature Granulocytes 0 % Immature Grans (Abs) 0.0 x10E3/uL 0.0-0.1 Comp. Metabolic Panel (14) - 09/23/16 16:45 Glucose, Serum 80 mg/dL 65-99 BUN 10 mg/dL 6-20 Creatinine, Serum 0.80 mg/dL 0.57-1.00 eGFR If NonAfricn Am 99 mL/min/1.73 >59 eGFR If Africn Am 114 mL/min/1.73 >59 BUN/Creatinine Ratio 13 9-23 Sodium, Serum 140 mmol/L 134-144 Potassium, Serum 4.1 mmol/L 3.5-5.2 Chloride, Serum 99 mmol/L 96-106 Carbon Dioxide, Total 24 mmol/L 18-29 Calcium, Serum 9.1 mg/dL 8.7-10.2 Protein, Total, Serum 7.2 g/dL 6.0-8.5 Albumin, Serum 4.7 g/dL 3.5-5.5 Globulin, Total 2.5 g/dL 1.5-4.5 A/G Ratio 1.9 1.2-2.2 Bilirubin, Total 0.3 mg/dL 0.0-1.2 Alkaline Phosphatase, S 64 IU/L 39-117 AST (SGOT) 14 IU/L 0-40 ALT (SGPT) 6 IU/L 0-32 Lipid Panel - 09/23/16 16:45 Cholesterol, Total 148 mg/dL 100-199 Triglycerides 79 mg/dL 0-149 HDL Cholesterol 64 mg/dL >39 VLDL Cholesterol Damon 16 mg/dL 5-40 LDL Cholesterol Calc 68 mg/dL 0-99 Hemoglobin A1c - 09/23/16 16:45 Hemoglobin A1c 5.2 % 4.8-5.6 Thyroid [place] Profile - 09/23/16 16:45 TSH 1.120 uIU/mL 0.450-4.500 Antinuclear Ab Reflex [place] - 12/29/16 17:26 LUCY Direct Negative Negative See below: Comment TSH - 02/20/17 17:08 TSH 3.140 uIU/mL 0.450-4.500 TSH - 02/20/17 17:08 TSH 3.140 uIU/mL 0.450-4.500 CMP - 03/22/17 17:46 Glucose, Serum 87 mg/dL 65-99 BUN 12 mg/dL 6-20 Creatinine, Serum 0.77 mg/dL 0.57-1.00 eGFR If NonAfricn Am 102 mL/min/1.73 >59 eGFR If Africn Am 118 mL/min/1.73 >59 BUN/Creatinine Ratio 16 9-23 Sodium, Serum 142 mmol/L 134-144 Potassium, Serum 4.3 mmol/L 3.5-5.2 Chloride, Serum 100 mmol/L 96-106 Carbon Dioxide, Total 25 mmol/L 18-29 Calcium, Serum 9.0 mg/dL 8.7-10.2 Protein, Total, Serum 6.4 g/dL 6.0-8.5 Albumin, Serum 4.2 g/dL 3.5-5.5 Globulin, Total 2.2 g/dL 1.5-4.5 A/G Ratio 1.9 1.2-2.2 Bilirubin, Total 0.3 mg/dL 0.0-1.2 Alkaline Phosphatase, S 68 IU/L 39-117 AST (SGOT) 16 IU/L 0-40 ALT (SGPT) 6 IU/L 0-32 CULTURE, URINE - 07/24/17 08:33 CULTURE, URINE, ROUTINE SEE NOTE NRG Complete blood count (CBC) with automated white [...] Automated erythrocyte mean corpuscular hemoglobin concentration measurement (mass/volume) 34 g/dL 32-36 Automated erythrocyte distribution width ratio 13.4 % 10.0- 14.5 Automated blood platelet count (count/volume) 257 10*3/uL [...] Blood monocytes automated count (number/volume) 0.9 10*3 0.0- 1.0 Automated eosinophil count 0.1 10*3/uL 0.0-0.3 Automated blood basophil count (count/volume) 0.0 10*3/uL 0.0-0.1 Fibrin D-dimer FEU measurement in platelet poor plasma (mass/volume) - 08/15/17 19:37 Fibrin D-dimer FEU measurement in platelet [...] Serum or plasma aspartate aminotransferase measurement (enzymatic activity/volume) 27 U/L 5-34 Serum or plasma alanine aminotransferase measurement (enzymatic activity/volume) 18 U/L 0-55 Serum or plasma protein measurement (mass/volume) 7.4 g/dL 6.4-8.2 Serum or plasma albumin measurement (mass/volume) 4.7 g/dL 3.2-4.5 Magnesium - 08/15/17 19:37 Magnesium 2.0 mg/dL 1.8-2.4 Serum or plasma troponin i.cardiac measurement (mass/volume) - 08/15/17 19:37 Serum or plasma troponin i.cardiac measurement (mass/volume) < ng/mL <0.30 Complete urinalysis with reflex to culture - 08/18/17 12:20 Urine color determination YELLOW NRG Urine clarity determination CLEAR NRG Urine pH measurement by test strip 7 5-9 Specific gravity of urine by test strip 1.005 1.016-1.022 Urine protein assay by test strip, semi-quantitative NEGATIVE NEGATIVE Urine glucose detection by automated test strip NEGATIVE NEGATIVE Erythrocytes detection in urine sediment by light microscopy NEGATIVE NEGATIVE Urine ketones detection by automated test strip NEGATIVE NEGATIVE Urine nitrite detection by test strip NEGATIVE NEGATIVE Urine total bilirubin detection by test strip NEGATIVE NEGATIVE Urine urobilinogen measurement by automated test strip (mass/volume) NORMAL NORMAL Urine leukocyte esterase detection by dipstick NEGATIVE NEGATIVE Automated urine sediment erythrocyte count by microscopy (number/high power field) NONE NRG Automated urine sediment leukocyte count by microscopy (number/high power field) NONE NRG Bacteria detection in urine sediment by light microscopy NEGATIVE NRG Squamous epithelial cells detection in urine sediment by light microscopy 2-5 NRG Crystals detection in urine sediment by light microscopy NONE NRG Casts detection in urine sediment by light microscopy NONE NRG Mucus detection in urine sediment by light microscopy NEGATIVE NRG Complete urinalysis with reflex to culture NO NRG Urine beta human chorionic gonadotropin (hCG) measurement - 08/18/17 12:20 Urine beta human chorionic gonadotropin (hCG) measurement NEGATIVE NEGATIVE Complete blood count (CBC) with automated white blood cell (WBC) differential - 08/18/17 12:27 Blood leukocytes automated count (number/volume) 7.4 10*3/uL 4.3-11.0 Blood erythrocytes automated count (number/volume) 4.42 10*6/uL 4.35-5.85 Venous blood hemoglobin measurement (mass/volume) 13.4 g/dL 11.5-16.0 Blood hematocrit (volume fraction) 40 % 35-52 Automated erythrocyte mean corpuscular volume 91 [foz_us] 80-99 Automated erythrocyte mean corpuscular hemoglobin (mass per erythrocyte) 30 pg 25-34 Automated erythrocyte mean corpuscular hemoglobin concentration measurement (mass/volume) 33 g/dL 32-36 Automated erythrocyte distribution width ratio 13.1 % 10.0- 14.5 Automated blood platelet count (count/volume) 230 10*3/uL 130-400 Automated blood platelet mean volume measurement 11.5 [foz_us] 7.4-10.4 Automated blood neutrophils/100 leukocytes 55 % 42-75 Automated blood lymphocytes/100 leukocytes 33 % 12-44 Blood monocytes/100 leukocytes 9 % 0-12 Automated blood eosinophils/100 leukocytes 2 % 0-10 Automated blood basophils/100 leukocytes 1 % 0-10 Blood neutrophils automated count (number/volume) 4.1 10*3 1.8-7.8 Blood lymphocytes automated count (number/volume) 2.4 10*3 1.0-4.0 Blood monocytes automated count (number/volume) 0.7 10*3 0.0- 1.0 Automated eosinophil count 0.1 10*3/uL 0.0-0.3 Automated blood basophil count (count/volume) 0.0 10*3/uL 0.0-0.1 Fibrin D-dimer FEU measurement in platelet poor plasma (mass/volume) - 08/18/17 12:27 Fibrin D-dimer FEU measurement in platelet poor plasma (mass/volume) < ug/mL 0.00-0.49 Comprehensive metabolic panel - 08/18/17 12:27 Serum or plasma sodium measurement (moles/volume) 139 mmol/L 135-145 Serum or plasma potassium measurement (moles/volume) 3.9 mmol/L 3.6-5.0 Serum or plasma chloride measurement (moles/volume) 105 mmol/L 98-107 Carbon dioxide 24 mmol/L 21-32 Serum or plasma anion gap determination (moles/volume) 10 mmol/L 5-14 Serum or plasma urea nitrogen measurement (mass/volume) 11 mg/dL 7-18 Serum or plasma creatinine measurement (mass/volume) 0.76 mg/dL 0.60-1.30 Serum or plasma urea nitrogen/creatinine mass ratio 14 NRG Serum or plasma creatinine measurement with calculation of estimated glomerular filtration rate > NRG Serum or plasma glucose measurement (mass/volume) 91 mg/dL 70-105 Serum or plasma calcium measurement (mass/volume) 8.9 mg/dL 8.5-10.1 Serum or plasma total bilirubin measurement (mass/volume) 0.6 mg/dL 0.1-1.0 Serum or plasma alkaline phosphatase measurement (enzymatic activity/volume) 53 U/L 40-136 Serum or plasma aspartate aminotransferase measurement (enzymatic activity/volume) 21 U/L 5-34 Serum or plasma alanine aminotransferase measurement (enzymatic activity/volume) 17 U/L 0-55 Serum or plasma protein measurement (mass/volume) 6.6 g/dL 6.4-8.2 Serum or plasma albumin measurement (mass/volume) 4.2 g/dL 3.2-4.5 Serum or plasma creatine kinase measurement (enzymatic activity/volume) - 08/18/17 12:27 Serum or plasma creatine kinase measurement (enzymatic activity/volume) 167 U/L 29-168 Serum or plasma creatine kinase MB measurement (enzymatic activity/volume) - 08/18/17 12:27 Serum or plasma creatine kinase MB measurement (enzymatic activity/volume) 1.1 ng/mL <6.6 Serum or plasma troponin i.cardiac measurement (mass/volume) - 08/18/17 12:27 Serum or plasma troponin i.cardiac measurement (mass/volume) < ng/mL <0.30 Myoglobin, serum - 08/18/17 12:27 Myoglobin, serum 32.4 ng/mL 10.0-92.0 Lipase - 08/18/17 12:27 Lipase 10 U/L 8-78 Serum or plasma thyrotropin measurement by detection limit <=0.05 miu/l (units/volume) - 08/18/17 12:27 Serum or plasma thyrotropin measurement by detection limit <=0.05 miu/l (units/volume) 1.56 u[iU]/mL 0.35-4.94 Serum or plasma C reactive protein measurement (mass/volume) - 08/18/17 12:27 Serum or plasma C reactive protein measurement (mass/volume) 0.05 mg/dL 0.00-0.50 Complete blood count (CBC) with automated white blood cell (WBC) differential - 12/02/17 13:25 Blood leukocytes automated count (number/volume) 6.5 10*3/uL 4.3-11.0 Blood erythrocytes automated count (number/volume) 5.04 10*6/uL 4.35-5.85 Venous blood hemoglobin measurement (mass/volume) 15.6 g/dL 11.5-16.0 Blood hematocrit (volume fraction) 45 % 35-52 Automated erythrocyte mean corpuscular volume 90 [foz_us] 80-99 Automated erythrocyte mean corpuscular hemoglobin (mass per erythrocyte) 31 pg 25-34 Automated erythrocyte mean corpuscular hemoglobin concentration measurement (mass/volume) 35 g/dL 32-36 Automated erythrocyte distribution width ratio 13.6 % 10.0- 14.5 Automated blood platelet count (count/volume) 236 10*3/uL 130-400 Automated blood platelet mean volume measurement 11.4 [foz_us] 7.4-10.4 Automated blood neutrophils/100 leukocytes 45 % 42-75 Automated blood lymphocytes/100 leukocytes 39 % 12-44 Blood monocytes/100 leukocytes 12 % 0-12 Automated blood eosinophils/100 leukocytes 3 % 0-10 Automated blood basophils/100 leukocytes 1 % 0-10 Blood neutrophils automated count (number/volume) 2.9 10*3 1.8-7.8 Blood lymphocytes automated count (number/volume) 2.5 10*3 1.0-4.0 Blood monocytes automated count (number/volume) 0.8 10*3 0.0- 1.0 Automated eosinophil count 0.2 10*3/uL 0.0-0.3 Automated blood basophil count (count/volume) 0.0 10*3/uL 0.0-0.1 Comprehensive metabolic panel - 12/02/17 13:25 Serum or plasma sodium measurement (moles/volume) 139 mmol/L 135-145 Serum or plasma potassium measurement (moles/volume) 3.7 mmol/L 3.6-5.0 Serum or plasma chloride measurement (moles/volume) 103 mmol/L 98-107 Carbon dioxide 21 mmol/L 21-32 Serum or plasma anion gap determination (moles/volume) 15 mmol/L 5-14 Serum or plasma urea nitrogen measurement (mass/volume) 13 mg/dL 7-18 Serum or plasma creatinine measurement (mass/volume) 0.82 mg/dL 0.60-1.30 Serum or plasma urea nitrogen/creatinine mass ratio 16 NRG Serum or plasma creatinine measurement with calculation of estimated glomerular filtration rate > NRG Serum or plasma glucose measurement (mass/volume) 98 mg/dL 70-105 Serum or plasma calcium measurement (mass/volume) 9.5 mg/dL 8.5-10.1 Serum or plasma total bilirubin measurement (mass/volume) 0.8 mg/dL 0.1-1.0 Serum or plasma alkaline phosphatase measurement (enzymatic activity/volume) 73 U/L 40-136 Serum or plasma aspartate aminotransferase measurement (enzymatic activity/volume) 18 U/L 5-34 Serum or plasma alanine aminotransferase measurement (enzymatic activity/volume) 13 U/L 0-55 Serum or plasma protein measurement (mass/volume) 7.3 g/dL 6.4-8.2 Serum or plasma albumin measurement (mass/volume) 4.6 g/dL 3.2-4.5 Serum or plasma choriogonadotropin ( test) detection - 12/02/17 13:25 Serum or plasma choriogonadotropin ( test) detection NEGATIVE NEGATIVE THYROID STIMULATING HORMONE - 12/02/17 13:25 THYROID STIMULATING HORMONE 1.95 u[iU]/mL 0.35-4.94 Serum or plasma thyroxine (T4) free measurement (mass/volume) - 12/02/17 13:25 Serum or plasma thyroxine (T4) free measurement (mass/volume) 1.10 ng/dL 0.70-1.48 Complete urinalysis with reflex to culture - 12/02/17 13:59 Urine color determination YELLOW NRG Urine clarity determination SLIGHTLY CLOUDY NRG Urine pH measurement by test strip 7 5-9 Specific gravity of urine by test strip 1.010 1.016-1.022 Urine protein assay by test strip, semi-quantitative 1+ NEGATIVE Urine glucose detection by automated test strip NEGATIVE NEGATIVE Erythrocytes detection in urine sediment by light microscopy NEGATIVE NEGATIVE Urine ketones detection by automated test strip NEGATIVE NEGATIVE Urine nitrite detection by test strip NEGATIVE NEGATIVE Urine total bilirubin detection by test strip NEGATIVE NEGATIVE Urine urobilinogen measurement by automated test strip (mass/volume) NORMAL NORMAL Urine leukocyte esterase detection by dipstick 1+ NEGATIVE Automated urine sediment erythrocyte count by microscopy (number/high power field) NONE NRG Automated urine sediment leukocyte count by microscopy (number/high power field) NONE NRG Bacteria detection in urine sediment by light microscopy TRACE NRG Squamous epithelial cells detection in urine sediment by light microscopy RARE NRG Crystals detection in urine sediment by light microscopy NONE NRG Casts detection in urine sediment by light microscopy NONE NRG Mucus detection in urine sediment by light microscopy SMALL NRG Complete urinalysis with reflex to culture NO NRG CULTURE, URINE - 04/20/18 12:29 CULTURE, URINE, ROUTINE SEE NOTE NRG Complete blood count (CBC) with automated white blood cell (WBC) differential - 06/24/18 22:37 Blood leukocytes automated count (number/volume) 6.6 10*3/uL 4.3-11.0 Blood erythrocytes automated count (number/volume) 4.36 10*6/uL 4.35-5.85 Venous blood hemoglobin measurement (mass/volume) 13.3 g/dL 11.5-16.0 Blood hematocrit (volume fraction) 40 % 35-52 Automated erythrocyte mean corpuscular volume 91 [foz_us] 80-99 Automated erythrocyte mean corpuscular hemoglobin (mass per erythrocyte) 31 pg 25-34 Automated erythrocyte mean corpuscular hemoglobin concentration measurement (mass/volume) 34 g/dL 32-36 Automated erythrocyte distribution width ratio 13.1 % 10.0- 14.5 Automated blood platelet count (count/volume) 273 10*3/uL 130-400 Automated blood platelet mean volume measurement 11.0 [foz_us] 7.4-10.4 Automated blood neutrophils/100 leukocytes 43 % 42-75 Automated blood lymphocytes/100 leukocytes 41 % 12-44 Blood monocytes/100 leukocytes 12 % 0-12 Automated blood eosinophils/100 leukocytes 4 % 0-10 Automated blood basophils/100 leukocytes 1 % 0-10 Blood neutrophils automated count (number/volume) 2.8 10*3 1.8-7.8 Blood lymphocytes automated count (number/volume) 2.7 10*3 1.0-4.0 Blood monocytes automated count (number/volume) 0.8 10*3 0.0- 1.0 Automated eosinophil count 0.2 10*3/uL 0.0-0.3 Automated blood basophil count (count/volume) 0.0 10*3/uL 0.0-0.1 Serum or plasma choriogonadotropin measurement (units/volume) - 06/24/18 22:37 Serum or plasma choriogonadotropin measurement (units/volume) 5 m[iU]/mL <5 ABO+Rh group - 06/24/18 22:37 ABO+Rh group OP NRG Transfusion band number [id number] NRG Complete urinalysis with reflex to culture - 06/24/18 23:24 Urine color determination YELLOW NRG Urine clarity determination CLEAR NRG Urine pH measurement by test strip 6.5 5-9 Specific gravity of urine by test strip 1.015 1.016-1.022 Urine protein assay by test strip, semi-quantitative NEGATIVE NEGATIVE Urine glucose detection by automated test strip NEGATIVE NEGATIVE Erythrocytes detection in urine sediment by light microscopy 5+ NEGATIVE Urine ketones detection by automated test strip NEGATIVE NEGATIVE Urine nitrite detection by test strip NEGATIVE NEGATIVE Urine total bilirubin detection by test strip NEGATIVE NEGATIVE Urine urobilinogen measurement by automated test strip (mass/volume) NORMAL NORMAL Urine leukocyte esterase detection by dipstick NEGATIVE NEGATIVE Automated urine sediment erythrocyte count by microscopy (number/high power field) [HPF] NRG Automated urine sediment leukocyte count by microscopy (number/high power field) NONE NRG Bacteria detection in urine sediment by light microscopy FEW NRG Squamous epithelial cells detection in urine sediment by light microscopy 0-2 NRG Crystals detection in urine sediment by light microscopy NONE NRG Casts detection in urine sediment by light microscopy NONE NRG Mucus detection in urine sediment by light microscopy NEGATIVE NRG Complete urinalysis with reflex to culture NO NRG Encounters ACCT No. Visit Date/Time Discharge Status Pt. Type Provider Facility Loc./Unit Complaint [id number] 06/25/2018 07:36:00 06/25/2018 23:59:59 CLS Outpatient LILLY WELLS MD [facility] RAD LLQ PAIN IN [id number] 06/24/2018 22:26:00 06/25/2018 00:57:00 DIS Emergency LILLY WELLS MD [facility] ER 5/6 WEEKS PREG, PAIN IN LEFT LOWER ABD [id number] 12/02/2017 13:06:00 12/02/2017 14:43:00 DIS Emergency KENN AGOSTO APRN [facility] ER HEART RATE RAPID,SOB,HOT FLASHES [id number] 08/18/2017 11:12:00 08/18/2017 14:06:00 DIS Emergency FREDERICK BARAJAS [facility] ER HX OF SVT,NEW MED REACTION VOMITING,SOA [id number] 08/15/2017 19:05:00 08/15/2017 20:49:00 DIS Emergency JENNIE ARAMBULA MD [facility] ER MUSCLE WEAKNESS;HEART PROBLEMS [id number] 04/11/2017 15:52:00 06/08/2017 15:14:00 DIS Outpatient JOSE WEBB APRN [facility] REHAB B KNEE PAIN; RENE-SCHLATTERS DISEASE OF LE'S [id number] 08/15/2016 12:30:00 08/15/2016 23:59:59 CLS Preadmit JOSE WEBB APRN [facility] CARD ABN TSH [id number] 05/16/2016 12:38:00 08/14/2016 00:01:00 DIS Outpatient JOSE WEBB APRN [facility] CARD ABN TSH [id number] 05/09/2016 23:16:00 05/10/2016 01:05:00 DIS Emergency YONATHAN GEORGE DO [facility] ER HEART RACING [id number] 02/05/2014 00:15:00 02/05/2014 01:41:00 DIS Emergency YONATHAN GEORGE DO [facility] ER ABD PAIN LEFT SIDE,BACK PAIN,NAUSEA [id number] 10/21/2018 17:36:00 ACT Emergency JENNIFER SAM MD [facility] ER L FOOT LAC [id number] 12/01/2017 04:36:00 Document Registration [id number] 12/01/2017 04:36:00 Document Registration [id number] 12/01/2017 04:36:00 Document Registration [id number] 12/01/2017 04:35:00 Document Registration [id number] 12/01/2017 04:35:00 Document Registration [id number] 12/01/2017 04:35:00 Document Registration [id number] 02/07/2012 15:32:00 Document Registration [id number] 10/10/2011 23:59:00 Document Registration [id number] 05/06/2011 19:58:00 Document Registration [id number] 08/29/2010 19:24:00 Document Registration [id number] 06/01/2010 02:33:00 Document Registration [id number] 05/24/2010 22:37:00 Document Registration [id number] 04/21/2010 19:56:00 Document Registration [id number] 10/23/2009 08:02:00 Document Registration [id number] 10/21/2009 12:22:00 Document Registration [id number] 08/08/2006 08:34:00 Document Registration [id number] 05/11/2016 13:06:00 Document Registration [id number] 07/31/2018 15:40:00 07/31/2018 23:59:59 CLS Outpatient DONNALILIANA ALLEN [facility] [id number] 04/20/2018 10:50:00 Document Registration [id number] 07/24/2017 18:50:00 Document Registration [id number] 03/22/2017 17:00:00 Document Registration [id number] 02/20/2017 16:00:00 Document Registration [id number] 09/24/2014 15:43:00 09/24/2014 23:59:59 CLS Outpatient DEREK NEVAREZ APRN [id number] 05/27/2014 14:33:00 05/27/2014 23:59:59 CLS Outpatient MELODY RAO APRN [id number] 03/03/2014 18:05:00 03/03/2014 23:59:59 CLS Outpatient MELODY RAO APRN [id number] 09/16/2013 11:06:00 09/16/2013 23:59:59 CLS Outpatient JUSTINE HERNANDEZ DO [id number] 07/18/2013 13:02:00 07/18/2013 23:59:59 CLS Outpatient GRISEL GIBSON APRN [id number] 06/08/2013 13:25:00 06/08/2013 23:59:59 CLS Outpatient YONATHAN BARTON APRN [id number] 07/03/2012 14:25:00 07/03/2012 23:59:59 CLS Outpatient [id number] 07/03/2012 13:04:00 07/03/2012 23:59:59 CLS Outpatient [id number] 04/11/2012 15:39:00 04/11/2012 23:59:59 CLS Outpatient MARY BOND JUSTINE Bart [id number] 12/05/2012 10:33:00 Document Registration [id number] 11/22/2012 10:43:00 Document Registration [id number] 10/03/2012 16:42:00 Document Registration [id number] 09/25/2016 15:06:00 Document Registration [id number] 08/24/2016 09:15:00 Document Registration [id number] 12/30/2016 12:09:00 Document Registration [id number] 06/14/2016 00:00:00 DIS Document Registration [id number] 02/21/2017 08:06:00 Document Registration
--- NOTE | 2018-10-21 17:59 | ED Lower Extremity ---
General Chief Complaint: Laceration Stated Complaint: L FOOT LAC Nursing Triage Note: PT TO TRIAGE BY WHEEL CHAIR WITH COMPLAINT OF RIGHT HEEL LACERATION. STATES SHE STEPPED ON PLASTIC HER GARDEN. DOES NOT KNOW WHEN LAST TETANUS SHOT WAS. Nursing Sepsis Screen: No Definite Risk Source: patient Exam Limitations: no limitations History of Present Illness Date Seen by Provider: October 21, 2018 Time Seen by Provider: 17:58 Initial Comments With the left foot she stepped on a plastic garden stake in her garden while bare footed. Tetanus is not up-to-date. There is a laceration to the plantar surface of the left heel. Onset: just prior to arrival Severity: moderate Pain/Injury Location: left foot Modifying Factors: Worse With Movement Allergies and Home Medications Allergies Coded Allergies: Penicillins (Unverified Allergy, Unknown, 12/02/17) Home Medications Cephalexin 500 Mg Capsule, 500 MG PO TID Prescribed by: KENN AGOSTO on 10/21/181815 Hydrocodone/Acetaminophen 1 Each Tablet, 1 TAB PO Q4-6HR PRN for PAIN-MODERATE Prescribed by: KENN AGOSTO on 10/21/181815 Levofloxacin 500 Mg Tablet, 500 MG PO DAILY Prescribed by: KENN AGOSTO on 10/21/181815 Medroxyprogesterone Acetate 150 Mg/1 Ml Syringe, 150 MG IM monthly, (Reported) Metoprolol Tartrate 25 Mg Tablet, 25 MG PO BID Prescribed by: JENNIE ARAMBULA on 08/15/172031 Multivit with Calcium,Iron,Min 1 Each Tablet, 1 EACH PO DAILY, (Reported) Ondansetron 8 Mg Tab.rapdis, 8 MG PO Q6H PRN for NAUSEA/VOMITING-1ST LINE Prescribed by: FREDERICK ANSARI on 08/18/17 1352 Patient Home Medication List Home Medication List Reviewed: Yes Review of Systems Constitutional: see HPI EENTM: see HPI Respiratory: no symptoms reported Cardiovascular: no symptoms reported Genitourinary: no symptoms reported Musculoskeletal: no symptoms reported Skin: see HPI Psychiatric/Neurological: No Symptoms Reported Past Wezlduk-Keqsmc-Tebykl Hx Patient Social History Alcohol Use: Denies Use Recreational Drug Use: No Smoking Status: Never a Smoker 2nd Hand Smoke Exposure: No Recent Foreign Travel: No Contact w/Someone Who Travel: No Recent Infectious Disease Expo: No Recent Hopitalizations: No Immunizations Up To Date Date of Pneumonia Vaccine: Apr 05, 2011 Date of Influenza Vaccine: Mar 28, 2016 Seasonal Allergies Seasonal Allergies: Yes Past Medical History Surgeries: Yes (ablation for SVT) Cardiac, Section Respiratory: No Cardiac: Yes (SVT status post ablation) Palpitations Neurological: No Reproductive Disorders: No Female Reproductive Disorders: Denies Sexually Transmitted Disease: No HIV/AIDS: No Genitourinary: No Gastrointestinal: No Musculoskeletal: No Endocrine: No HEENT: No Cancer: No Psychosocial: No Integumentary: No Blood Disorders: No Family Medical History No Pertinent Family Hx Physical Exam Vital Signs Vital Signs - First Documented 10/21/18 17:42 Temp 98.0 Pulse 85 Resp 19 B/P (MAP) 102/73 (83) Pulse Ox 100 O2 Delivery Room Air Capillary Refill : Less Than 3 Seconds Height, Weight, BMI Height: 5'3.00" Weight: 145lbs. 0oz. [id number]; 21.03 BMI Method:Stated General Appearance: WD/WN, no apparent distress Neck: non-tender, full range of motion Respiratory: no respiratory distress, no accessory muscle use Hips: bilateral hip non-tender, bilateral hip normal inspection Legs: bilateral leg non-tender, bilateral leg normal inspection Knees: bilateral knee non-tender, bilateral knee normal inspection Ankles: bilateral ankle non-tender, bilateral ankle normal inspection Feet: left foot other (to the plantar surface of the right heel there is a 1 cm wound not actively bleeding, no foreign bodies identified.) Neurologic/Psychiatric: alert, normal mood/affect Skin: normal color, warm/dry Progress/Results/Core Measures Results/Orders My Orders Orders - KENN AGOSTO APRN Dipht,Pertuss(Acell),Tet Adult (Boostrix (10/21/18 18:00) Rx-Hydrocodone/Apap 5-325 Mg (Rx-Vicodin (10/21/18 18:00) Ceftriaxone For Im Use (Rocephin For Im (10/21/18 18:00) Lidocaine 1% Inj 20 Ml (Xylocaine 1% Inj (10/21/18 18:00) Foot, Left, 3 Views (10/21/18 17:55) Vital Signs/I&O 10/21/18 17:42 Temp 98.0 Pulse 85 Resp 19 B/P (MAP) 102/73 (83) Pulse Ox 100 O2 Delivery Room Air Blood Pressure Mean: 83 Departure Impression Primary Impression: Foot laceration Qualified Codes: S91.319A - Laceration without foreign body, unspecified foot, initial encounter Disposition: 01 HOME, SELF-CARE Condition: Stable Departure-Patient Inst. Decision time for Depature: 18:16 Referrals: LILIANA WOODARD MD (PCP/Family) Primary Care Physician Patient Instructions: Wound Care (DC) Add. Discharge Instructions: 1. Antibiotics as directed 2. Change the dressing once a day. You may shower allowing water and over this, do not soak it in water such as a bathtub hot or swimming pool for 3-4 days. Return to ER for any sign of infection such as redness or swelling of the heel. All discharge instructions reviewed with patient and/or family. Voiced understanding. Scripts Hydrocodone/Acetaminophen ([place] 5-325 Tablet) 1 Each Tablet 1 TAB PO Q4-6HR PRN for PAIN-MODERATE MDD 10 TABS for 7 Days, #10 TAB Prov: KENN AGOSTO APRN 10/21/18 Cephalexin (Keflex) 500 Mg Capsule 500 MG PO TID, #15 CAP Prov: KENN AGOSTO APRN 10/21/18 Levofloxacin (Levofloxacin) 500 Mg Tablet 500 MG PO DAILY, #5 TAB 0 Refills Prov: KENN AGOSTO APRN 10/21/18 KENN AGOSTO APRN October 21, 2018 17:59
[2018-10-21] MEDS ORDERED: LIDOCAINE 1% INJ 20 ML 20 ML VIAL INJ ONE (18:00)
[2018-10-21] MEDS ORDERED: cefTRIAXone 1,000 MG/2.86 ml vial (IM ONLY) IM SCH (18:00)
[2018-10-21] MEDS ORDERED: TETANUS,DIPTH,PERTUSS P/F (BOOSTRIX) 0.5 ML VIAL IM ONE (18:00)
[2018-10-21] MEDS ORDERED: RX-HYDROCODONE/APAP 5/325 MG #4 TAB PK PO PRN (18:00)
[2018-10-21] MEDS ORDERED: LEVO500T80 PO (18:16)
[2018-10-21] MEDS ORDERED: HYDR-4226 PO (18:16)
[2018-10-21] MEDS ORDERED: CEPH-507 PO (18:16)
--- NOTE | 2018-10-21 18:18 | Diagnostic Imaging Report ---
INDICATION: Laceration and pain. Three views were obtained. FINDINGS: The alignment is normal. There is no fracture or dislocation. There are no radiopaque foreign bodies. Soft tissues are unremarkable. IMPRESSION: No acute radiographic abnormality. Dictated by: Dictated on workstation # [id number]
[2018-10-21] MEDS ORDERED: ONDANSETRON 4 MG (ZOFRAN) ORAL DISSOLVE TAB ONE (18:38)
[2018-10-21] MEDS ORDERED: ONDANSETRON 4 MG (ZOFRAN) ORAL DISSOLVE TAB PO ONE (18:45)
[2018-10-21 19:02] VITALS: BP 102/73
== END 2018-10-21 19:02 | disposition home or self-care (01) ==
LOC: EDUNIT# 17:35 → ER 17:36
DX: S91.312A Laceration without foreign body, left foot, initial encounter (principal); Z79.52 Long term (current) use of systemic steroids; Z98.890 Other specified postprocedural states; Z23 Encounter for immunization; Z88.0 Allergy status to penicillin; W26.8XXA Contact with other sharp object(s), not elsewhere classified, initial encounter; Y92.007 Garden or yard of unspecified non-institutional (private) residence as the place of occurrence of the external cause
CPT/HCPCS: 73630; 90715

== ENCOUNTER 2019-03-17 08:35 | Emergency (ER) | payer BC ==
[~2019-03-17] VITALS: Ht 160 cm; Wt 69.2 kg
[~2019-03-17 08:35] MED LIST changes: +CEPH-507 PO; +HYDR-4226 PO; +LEVO500T80 PO
--- NOTE | 2019-03-17 08:57 | ED General ---
General Stated Complaint: WEAKNESS, DIZZY, HEART FLUTTERING Source of Information: Patient Exam Limitations: No Limitations History of Present Illness Date Seen by Provider: Mar 17, 2019 Time Seen by Provider: 08:37 Initial Comments Patient presents to ER by private conveyance with chief complaint of dizziness, heart fluttering, feeling weak this morning. She has been on her. The past month. She is working with fertility doctors trying to cut down and had a negative test a couple days ago in the clinic as well as a home test was negative today. She does not take any medications routinely. She's not been ill with anything else she does have some nausea. She has a history of anemia after her last but is not presently anemic that she is aware of. She has no other significant medical history in her primary care doctor moved on so she does not follow with one anymore. She does not take any routine medications. She occasionally drinks and did have a mug of mead yesterday at the [facility], [place]. She has a history of SVT status post ablation in 2005. She says she doesn't think this feels the same but she can't remember. She recently had hormones and was told that all of her hormone levels were within normal limits. Allergies and Home Medications Allergies Coded Allergies: Penicillins (Unverified Allergy, Unknown, 12/02/17) Home Medications Cephalexin 500 Mg Capsule, 500 MG PO TID Prescribed by: KENN AGOSTO on 10/21/181815 Hydrocodone/Acetaminophen 1 Each Tablet, 1 TAB PO Q4-6HR PRN for PAIN-MODERATE Prescribed by: KENN AGOSTO on 10/21/181815 Levofloxacin 500 Mg Tablet, 500 MG PO DAILY Prescribed by: KENN AGOSTO on 10/21/181815 Medroxyprogesterone Acetate 150 Mg/1 Ml Syringe, 150 MG IM monthly, (Reported) Metoprolol Tartrate 25 Mg Tablet, 25 MG PO BID Prescribed by: JENNIE ARAMBULA on 08/15/172031 Multivit with Calcium,Iron,Min 1 Each Tablet, 1 EACH PO DAILY, (Reported) Ondansetron 8 Mg Tab.rapdis, 8 MG PO Q6H PRN for NAUSEA/VOMITING-1ST LINE Prescribed by: FREDERICK ANSARI on 08/18/17 1352 Patient Home Medication List Home Medication List Reviewed: Yes Review of Systems Review of Systems Constitutional: No chills, No diaphoresis EENTM: No ear discharge, No hearing loss, No ear pain Respiratory: cough (occasional nonproductive); No short of breath Cardiovascular: see HPI; No chest pain, No edema; palpitations; No syncope Gastrointestinal: No constipation, No diarrhea; nausea; No vomiting Genitourinary: No decreased output, No discharge : No Musculoskeletal: No back pain, No joint pain Past Dpknpbh-Guzcyd-Lxylvm Hx Patient Social History Alcohol Use: Occasionally Uses Recreational Drug Use: No Smoking Status: Current Everyday Smoker 2nd Hand Smoke Exposure: No Recent Foreign Travel: No Contact w/Someone Who Travel: No Recent Hopitalizations: No Immunizations Up To Date Date of Pneumonia Vaccine: Apr 05, 2011 Date of Influenza Vaccine: Mar 28, 2016 Seasonal Allergies Seasonal Allergies: Yes Past Medical History Surgeries: Yes (ablation for SVT) Cardiac, Section Respiratory: No Cardiac: Yes (SVT status post ablation) Palpitations Neurological: No Reproductive Disorders: No Female Reproductive Disorders: Denies Sexually Transmitted Disease: No HIV/AIDS: No Genitourinary: No Gastrointestinal: No Musculoskeletal: No Endocrine: No HEENT: No Cancer: No Psychosocial: No Integumentary: No Blood Disorders: No Family Medical History No Pertinent Family Hx Physical Exam Vital Signs Vital Signs - First Documented 03/17/19 08:58 Temp 35.6 Pulse 110 Resp 18 B/P (MAP) 133/93 (106) Pulse Ox 100 Capillary Refill : Height, Weight, BMI Height: 5'3.00" Weight: 145lbs. 0oz. 65.550391ro; 21.03 BMI Method:Stated General Appearance: No Apparent Distress, WD/WN Eyes: Bilateral Eye Normal Inspection, Bilateral Eye PERRL, Bilateral Eye EOMI HEENT: PERRL/EOMI, Pharynx Normal, Moist Mucous Membranes Neck: Full Range of Motion, Normal Inspection, Non Tender, Supple Respiratory: Lungs Clear, Normal Breath Sounds, No Accessory Muscle Use, No Respiratory Distress Cardiovascular: Regular Rate, Rhythm, No Edema Extremity: Normal Capillary Refill, Normal Inspection Neurologic/Psychiatric: Alert, Oriented x3, No Motor/Sensory Deficits, Normal Mood/Affect Skin: Normal Color, Warm/Dry Progress/Results/Core Measures Suspected Sepsis SIRS Temperature: Pulse: Respiratory Rate: Laboratory Tests 03/17/19 08:51: White Blood Count 7.5 Blood Pressure / Mean: Laboratory Tests 03/17/19 08:51: Creatinine 0.83, Platelet Count 233, Total Bilirubin 0.7 Results/Orders Lab Results Laboratory Tests Test 03/17/19 08:51 Range/Units White Blood Count 7.5 4.3-11.0 10^3/uL Red Blood Count 4.93 4.35-5.85 10^6/uL Hemoglobin 14.8 11.5-16.0 G/DL Hematocrit 44 35-52 % Mean Corpuscular Volume 90 80-99 FL Mean Corpuscular Hemoglobin 30 25-34 PG Mean Corpuscular Hemoglobin Concent 33 32-36 G/DL Red Cell Distribution Width 13.8 10.0-14.5 % Platelet Count 233 130-400 10^3/uL Mean Platelet Volume 10.7 H 7.4-10.4 FL Neutrophils (%) (Auto) 49 42-75 % Lymphocytes (%) (Auto) 36 12-44 % Monocytes (%) (Auto) 11 0-12 % Eosinophils (%) (Auto) 3 0-10 % Basophils (%) (Auto) 1 0-10 % Neutrophils # (Auto) 3.7 1.8-7.8 X 10^3 Lymphocytes # (Auto) 2.7 1.0-4.0 X 10^3 Monocytes # (Auto) 0.8 0.0-1.0 X 10^3 Eosinophils # (Auto) 0.3 0.0-0.3 10^3/uL Basophils # (Auto) 0.1 0.0-0.1 10^3/uL Sodium Level 140 135-145 MMOL/L Potassium Level 3.7 3.6-5.0 MMOL/L Chloride Level 104 98-107 MMOL/L Carbon Dioxide Level 27 21-32 MMOL/L Anion Gap 9 5-14 MMOL/L Blood Urea Nitrogen 12 7-18 MG/DL Creatinine 0.83 0.60-1.30 MG/DL Estimat Glomerular Filtration Rate > 60 BUN/Creatinine Ratio 14 Glucose Level 86 70-105 MG/DL Calcium Level 8.9 8.5-10.1 MG/DL Corrected Calcium 8.5 8.5-10.1 MG/DL Total Bilirubin 0.7 0.1-1.0 MG/DL Aspartate Amino Transf (AST/SGOT) 18 5-34 U/L Alanine Aminotransferase (ALT/SGPT) 13 0-55 U/L Alkaline Phosphatase 96 40-136 U/L Troponin I < 0.028 <0.028 NG/ML B-Type Natriuretic Peptide 14.0 <100.0 PG/ML Total Protein 7.1 6.4-8.2 GM/DL Albumin 4.5 3.2-4.5 GM/DL My Orders Orders - JENNIFER SAM Ekg Tracing (03/17/19 08:39) Continuous Ekg Monitoring (03/17/19 08:39) Orthostatic Vital Signs (Adult (03/17/19 08:52) Cbc With Automated Diff (03/17/19 08:52) Comprehensive Metabolic Panel (03/17/19 08:52) BNP (03/17/19 08:52) Troponin I (03/17/19 08:52) Ua Culture If Indicated (03/17/19 08:52) Urine Bedside (03/17/19 08:52) Ondansetron Injection (Zofran Injectio (03/17/19 09:00) Medications Given in ED Current Medications Medications Dose Ordered Sig/Munira Route Start Time Stop Time Status Last Admin Dose Admin Ondansetron HCl 4 mg ONCE ONCE IVP 03/17/19 09:00 03/17/19 09:01 DC 03/17/19 09:12 4 MG Vital Signs/I&O 03/17/19 03/17/19 08:58 09:17 Temp 35.6 Pulse 110 62 81 Resp 18 B/P (MAP) 133/93 (106) 116/81 (93) 110/82 (91) Pulse Ox 100 Capillary Refill : ECG Initial ECG Impression Date: Mar 17, 2019 Initial ECG Impression Time: 08:44 Initial ECG Rate: 74 Initial ECG Rhythm: Normal Sinus Initial ECG Intervals: Normal Initial ECG Impression: Normal Initial ECG Comparisson: Unchanged Comment No ST elevation or depression. Departure Impression Primary Impression: Palpitations Disposition: 01 HOME, SELF-CARE Condition: Stable Departure-Patient Inst. Decision time for Depature: 09:33 Referrals: [facility] (PCP/Family) Primary Care Physician ANNIKA PEREZ MD FACP FACC CCDS Patient Instructions: Palpitations (DC) Add. Discharge Instructions: While I can't find anything dangerous and our workup today I do suggest you follow-up in the next couple weeks with primary care or the leather piece inspector Dr. Perez in the clinic. Please return to the nearest ER if you begin to experience chest pain, shortness of breath or other worrisome symptoms. Copy Copies To 1: ANNIKA PEREZ MD FACP FAC JESSIS JENNIFER SAM Mar 17, 2019 08:57
[2019-03-17] MEDS ORDERED: ONDANSETRON 4 MG/2 ML (SDV) Z0FRAN IVP ONE (09:00)
[2019-03-17 09:01] LABS: BASOPHILS # (AUTO) 0.1 10^3/uL (0.0-0.1); BASOPHILS % (AUTO) 1 % (0-10); EOSINOPHILS # (AUTO) 0.3 10^3/uL (0.0-0.3); EOSINOPHILS % (AUTO) 3 % (0-10); HEMATOCRIT 44 % (35-52); HEMOGLOBIN 14.8 G/DL (11.5-16.0); LYMPHOCYTES # (AUTO) 2.7 X 10^3 (1.0-4.0); LYMPHOCYTES % (AUTO) 36 % (12-44); MEAN CORPUSCULAR HEMOGLOBIN 30 PG (25-34); MEAN CORPUSCULAR HGB CONC 33 G/DL (32-36); MEAN CORPUSCULAR VOLUME 90 FL (80-99); MEAN PLATELET VOLUME 10.7 FL (7.4-10.4); MONOCYTES # (AUTO) 0.8 X 10^3 (0.0-1.0); MONOCYTES % (AUTO) 11 % (0-12); NEUTROPHILS # (AUTO) 3.7 X 10^3 (1.8-7.8); NEUTROPHILS % (AUTO) 49 % (42-75); PLATELET COUNT 233 10^3/uL (130-400); RED CELL DISTRIBUTION WIDTH 13.8 % (10.0-14.5); WHITE BLOOD COUNT 7.5 10^3/uL (4.3-11.0)
[2019-03-17 09:17] VITALS: BP_SYST 110; BP_SYST 116; BP_DIAS 81; BP_DIAS 82
[2019-03-17 09:18] LABS: ALANINE AMINOTRANSFERASE 13 U/L (0-55); ALBUMIN 4.5 GM/DL (3.2-4.5); ALKALINE PHOSPHATASE 96 U/L (40-136); BILIRUBIN,TOTAL 0.7 MG/DL (0.1-1.0); BUN/CREATININE RATIO 14; CALCIUM 8.9 MG/DL (8.5-10.1); CARBON DIOXIDE 27 MMOL/L (21-32); CHLORIDE 104 MMOL/L (98-107); CREATININE SERUM 0.83 MG/DL (0.60-1.30); GFR ESTIMATED > 60; GLUCOSE 86 MG/DL (70-105); POTASSIUM 3.7 MMOL/L (3.6-5.0); SODIUM 140 MMOL/L (135-145); TOTAL PROTEIN 7.1 GM/DL (6.4-8.2)
[2019-03-17 09:37] VITALS: BP 116/84
== END 2019-03-17 09:37 | disposition home or self-care (01) ==
LOC: EDUNIT# 08:35 → ER 08:37
DX: R00.2 Palpitations (principal); D64.9 Anemia, unspecified; F17.200 Nicotine dependence, unspecified, uncomplicated; Z88.0 Allergy status to penicillin
CPT/HCPCS: 36415; 80053; 83880; 84484; 85025; 93005

== ENCOUNTER → 2019-07-22 | Outpatient (CLI) | payer BC | LOC: LAB 15:21 | PROVIDERS: ATTEND Midwife | DX: N91.1 Secondary amenorrhea (principal) | CPT/HCPCS: 36415; 84144; 84702 ==

== ENCOUNTER 2019-08-10 09:36 | Emergency (ER) | payer BC, OTHER ==
[~2019-08-10] VITALS: Ht 157.5 cm; Wt 72.3 kg
[2019-08-10 10:33] LABS: BILIRUBIN,URINE NEGATIVE (NEGATIVE); CLARITY,URINE CLEAR; COLOR,URINE YELLOW; GLUCOSE, URINE (UA) NEGATIVE (NEGATIVE); KETONES,URINE NEGATIVE (NEGATIVE); LEUKOCYTE ESTERASE ,URINE NEGATIVE (NEGATIVE); NITRITE,URINE NEGATIVE (NEGATIVE); PROTEIN,URINE NEGATIVE (NEGATIVE)
[2019-08-10 10:42] LABS: BACTERIA,URINE NEGATIVE /HPF
--- NOTE | 2019-08-10 11:04 | ED GU-Female ---
General Chief Complaint: Abdominal/GI Problems Stated Complaint: BACK PAIN / L SIDE PAIN Nursing Triage Note: PT AMB TO RM 9 WITH COMPLAINT OF BACK PAIN, ABD BLOATING, AND LEFT SIDED PAIN. Nursing Sepsis Screen: No Definite Risk Source: patient, family Exam Limitations: no limitations History of Present Illness Date Seen by Provider: Aug 10, 2019 Time Seen by Provider: 10:25 Initial Comments Here with report of left lower quadrant abdominal pain and bloating. She is currently in therapy for fertilization issues and had insemination yesterday. Had an ultrasound on which showed 2 follicles on the left and one on the right. 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 Recently had an injection of chorionicgonadotropin for stimulation of follicles. Denies vaginal bleeding. She did have insemination yesterday and was sexually active this morning for instructions from fertility specialist. Cramping was starting before that but worsened after sexual activity. Denies dysuria, diarrhea or problems with bowel or bladder. Pain does seem to be coming and going in crampy waves with intermittent periods of no pain at all. She has not had anything for pain control could she did not want to interfere with the fertilization. Timing/Duration: this morning Severity/Quality: mild, moderate, cramping Location: LLQ Radiation: back Activities at Onset: none Sexual Isabela History: less than 2 months ago, single partner Associated Symptoms: No fever/chills, No loss of bladder control; lower back pain; No nausea/vomiting, No urinary frequency Allergies and Home Medications Allergies Coded Allergies: Penicillins (Unverified Allergy, Unknown, 12/02/17) Home Medications Cephalexin 500 Mg Capsule, 500 MG PO TID Prescribed by: KENN AGOSTO on 10/21/181815 Hydrocodone/Acetaminophen 1 Each Tablet, 1 TAB PO Q4-6HR PRN for PAIN-MODERATE Prescribed by: KENN AGOSTO on 10/21/181815 Levofloxacin 500 Mg Tablet, 500 MG PO DAILY Prescribed by: KENN AGOSTO on 10/21/181815 Medroxyprogesterone Acetate 150 Mg/1 Ml Syringe, 150 MG IM monthly, (Reported) Metoprolol Tartrate 25 Mg Tablet, 25 MG PO BID Prescribed by: JENNIE ARAMBULA on 08/15/172031 Multivit with Calcium,Iron,Min 1 Each Tablet, 1 EACH PO DAILY, (Reported) Ondansetron 8 Mg Tab.gregory 8 MG PO Q6H PRN for NAUSEA/VOMITING-1ST LINE Prescribed by: FREDERICK ANSARI on 08/18/17 1352 Patient Home Medication List Home Medication List Reviewed: Yes Review of Systems Review of Systems Constitutional: see HPI; No chills, No fever Respiratory: no symptoms reported Cardiovascular: no symptoms reported Genitourinary: see HPI Past Kwejjcl-Mpzgtl-Uyjrwj Hx Past Med/Social Hx: Reviewed Nursing Past Med/Soc Hx Patient Social History Alcohol Use: Occasionally Uses Recreational Drug Use: No Smoking Status: Never a Smoker 2nd Hand Smoke Exposure: No Recent Foreign Travel: No Contact w/Someone Who Travel: No Recent Infectious Disease Expo: No Recent Hopitalizations: No Immunizations Up To Date Tetanus Booster (TDap): Unknown PED Vaccines UTD: Yes Date of Pneumonia Vaccine: Apr 05, 2011 Date of Influenza Vaccine: Mar 28, 2016 Seasonal Allergies Seasonal Allergies: Yes Past Medical History Surgeries: Yes (ablation for SVT) Cardiac, Section Respiratory: No Cardiac: Yes (SVT status post ablation) Palpitations Neurological: No Reproductive Disorders: No Female Reproductive Disorders: Denies Sexually Transmitted Disease: No HIV/AIDS: No Genitourinary: No Gastrointestinal: No Musculoskeletal: No Endocrine: No HEENT: No Cancer: No Psychosocial: No Integumentary: No Blood Disorders: No Family Medical History Reviewed Nursing Family Hx No Pertinent Family Hx Physical Exam Vital Signs Vital Signs - First Documented 08/10/19 09:50 Temp 36.3 Pulse 83 Resp 14 B/P (MAP) 129/87 (101) Pulse Ox 100 O2 Delivery Room Air Capillary Refill : Less Than 3 Seconds Height, Weight, BMI Height: 5'3.00" Weight: 145lbs. 0oz. 65.710999ky; 29.00 BMI Method:Stated General Appearance: WD/WN, no apparent distress Cardiovascular: regular rate, rhythm, no murmur Respiratory: lungs clear, normal breath sounds Gastrointestinal: soft; No guarding, No rebound; tenderness (left lower quadrant) Neurologic/Psychiatric: alert, oriented x 3 Skin: normal color, warm/dry Progress/Results/Core Measures Suspected Sepsis Recent Fever Within 48 Hours: No Infection Criteria Present: None New/Unexplained Altered Menta: No Sepsis Screen: No Definite Risk SIRS Temperature: Pulse: 83 Respiratory Rate: 14 Blood Pressure 129 /87 Mean: 101 Results/Orders Lab Results Laboratory Tests Test 08/10/19 10:05 Range/Units Urine Color YELLOW Urine Clarity CLEAR Urine pH 7.0 5-9 Urine Specific [place] 1.010 L 1.016-1.022 Urine Protein NEGATIVE NEGATIVE Urine Glucose (UA) NEGATIVE NEGATIVE Urine Ketones NEGATIVE NEGATIVE Urine Nitrite NEGATIVE NEGATIVE Urine Bilirubin NEGATIVE NEGATIVE Urine Urobilinogen 0.2 < = 1.0 MG/DL Urine Leukocyte Esterase NEGATIVE NEGATIVE Urine RBC (Auto) NEGATIVE NEGATIVE Urine RBC NONE /HPF Urine WBC NONE /HPF Urine Squamous Epithelial Cells NONE /HPF Urine Crystals NONE /LPF Urine Bacteria NEGATIVE /HPF Urine Casts NONE /LPF Urine Mucus NEGATIVE /LPF Urine Culture Indicated NO Urine Test POSITIVE NEGATIVE My Orders Orders - JENNIE ARAMBULA MD Ua Culture If Indicated (08/10/19 10:26) Hcg,Qualitative Urine (08/10/19 10:26) Vital Signs/I&O 08/10/19 09:50 Temp 36.3 Pulse 83 Resp 14 B/P (MAP) 129/87 (101) Pulse Ox 100 O2 Delivery Room Air Capillary Refill : Less Than 3 Seconds Blood Pressure Mean: 101 Progress Note : Progress Note Seen and evaluated. UA ordered. A urine hCG ordered and this was positive. I believe this is related to the Ovidrel (Choriogonadotropin juan) injection that she received on . You would be highly unlikely that would be confirmed this early on otherwise. She has placed a call to her fertility specialist. 1055: UA is normal. Pain still is intermittent. Belly is soft otherwise and I don't see peritoneal signs. Pain is not persistent and unrelenting and I do not believe this is ovarian torsion at this point. She had an ultrasound 2 days ago that showed small follicles. It would be unlikely to have torsion from that. I believe this is more related to uterine cramping after insemination and sexual activity although I did discuss all of this with the patient and family. Ultrasound is not available today and I do not want to do radiological studies for her protection at this point given current findings. This would change if things have worsened. We did discuss about following up with ultrasound available center if needed and I am certainly willing to assist with that transfer if needed. At this point I believe she is safe to go home and she agrees. She will continue to try to get a hold of her fertility specialist and will try Tylenol and warm moist heat to see if that helps at home. Discharg ed home with return precautions. Patient verbalize understanding instructions and agreement with plan. Departure Impression Primary Impression: LLQ abdominal pain Disposition: 01 HOME, SELF-CARE Condition: Stable Departure-Patient Inst. Decision time for Depature: 11:06 Referrals: [facility] (PCP/Family) Primary Care Physician Patient Instructions: Acute Abdomen (Belly Pain), Adult (DC) Add. Discharge Instructions: All discharge instructions reviewed with patient and/or family. Voiced understanding. Continue to call and follow up with your fertility specialist. Return for markedly increasing pain, weakness, vomiting, fever or other concerns as needed. JENNIE ARAMBULA MD Aug 10, 2019 11:03
[2019-08-10 11:25] VITALS: BP 109/76
--- OUTSIDE RECORDS SUMMARY | 2019-08-13 23:04 | XMS REPORT | Clinical Summary ---
Author Author [facility] Organization [facility] Address Unknown Phone Unavailable Care Team Providers Care Senior Procurement Manager Name Role Phone Taylor Pugh DO PCP Magalis Momin MD 100 Source Comments Some departments are not documenting in the electronic medical record. If you d o not see the information that you expected, contact Release of Information in [facility] Information Management department at [phone] for further assistan ce in locating additional records.[facility] Allergies Comments Active Allergy Reactions Severity [...] Health Maintenance Due Date Last Done Comments DTAP/TDAP VACCINES (1 - 1996 Tdap) HIV SCREENING 2000 PHYSICAL (COMPREHENSIVE) 2003 EXAM CERVICAL CANCER SCREENING 2015 INFLUENZA VACCINE 01/03/2019 Results Not on filefrom Last 3 Months
== END 2019-08-10 11:25 | disposition home or self-care (01) ==
LOC: EDUNIT# 09:36 → ER 09:37
DX: R10.32 Left lower quadrant pain (principal); Z88.0 Allergy status to penicillin
CPT/HCPCS: 81000; 84703; 99282

== ENCOUNTER 2020-02-09 10:41 | Emergency (ER) | payer BC, OTHER ==
[~2020-02-09] VITALS: Ht 162 cm; Wt 150.0 kg
[2020-02-09 11:11] LABS: BILIRUBIN,URINE NEGATIVE (NEGATIVE); CLARITY,URINE CLEAR; COLOR,URINE YELLOW; GLUCOSE, URINE (UA) NEGATIVE (NEGATIVE); KETONES,URINE NEGATIVE (NEGATIVE); LEUKOCYTE ESTERASE ,URINE NEGATIVE (NEGATIVE); NITRITE,URINE NEGATIVE (NEGATIVE); PROTEIN,URINE NEGATIVE (NEGATIVE)
[2020-02-09 11:19] LABS: RBC,URINE TNTC /HPF; SQUAMOUS EPITHELIAL CELL,UR 0-2 /HPF
[2020-02-09 11:20] LABS: BACTERIA,URINE FEW /HPF; WBC,URINE RARE /HPF
[2020-02-09] MEDS ORDERED: KETOROLAC 30 MG/ML VIAL IVP ONE (12:30)
[2020-02-09] MEDS ORDERED: PROCHLORPERAZINE 10 MG/2ML INJ (COMPAZINE) IV ONE (12:30)
[2020-02-09] MEDS ORDERED: diphenhydrAMINE 50 MG/ML INJ (BENADRYL) IVP ONE (12:30)
[2020-02-09 12:43] LABS: BASOPHILS % (AUTO) 0 % (0-10); EOSINOPHILS # (AUTO) 0.1 10^3/uL (0.0-0.3); EOSINOPHILS % (AUTO) 2 % (0-10); HEMATOCRIT 42 % (35-52); HEMOGLOBIN 13.8 G/DL (11.5-16.0); LYMPHOCYTES # (AUTO) 1.6 X 10^3 (1.0-4.0); LYMPHOCYTES % (AUTO) 25 % (12-44); MEAN CORPUSCULAR HEMOGLOBIN 28 PG (25-34); MEAN CORPUSCULAR HGB CONC 33 G/DL (32-36); MEAN CORPUSCULAR VOLUME 87 FL (80-99); MEAN PLATELET VOLUME 11.2 FL (7.4-10.4); MONOCYTES # (AUTO) 0.5 X 10^3 (0.0-1.0); MONOCYTES % (AUTO) 9 % (0-12); NEUTROPHILS % (AUTO) 65 % (42-75); PLATELET COUNT 275 10^3/uL (130-400); WHITE BLOOD COUNT 6.3 10^3/uL (4.3-11.0)
--- NOTE | 2020-02-09 12:46 | ED General ---
General Chief Complaint: Dizziness/Syncope Stated Complaint: DIZZY Nursing Triage Note: SUDDEN ONSET OF DIZZINESS STARTING AT 10AM TODAY. PT IS ANXIOUS ABOUT BEING DIZZY. Nursing Sepsis Screen: No Definite Risk Source of Information: Patient Exam Limitations: No Limitations History of Present Illness Date Seen by Provider: Feb 09, 2020 Time Seen by Provider: 12:44 Initial Comments Dizziness that began this morning at about 10 AM. She awakened and was laying in bed with her and felt fine. She then got up and felt as though she was drunk. She felt as though her gait was unsteady and she was dizzy. She states this was only with movement and at rest this would subside. She does have a history of something similar during and her blood sugar would get low. Timing/Duration: 4-6 Hours Severity: Moderate Associated Systoms: Headaches Allergies and Home Medications Allergies Coded Allergies: Penicillins (Unverified Allergy, Unknown, 12/02/17) Home Medications Cephalexin 500 Mg Capsule, 500 MG PO TID Prescribed by: KENN AGOSTO on 10/21/181815 Hydrocodone/Acetaminophen 1 Each Tablet, 1 TAB PO Q4-6HR PRN for PAIN-MODERATE Prescribed by: KENN AGOSTO on 10/21/181815 Levofloxacin 500 Mg Tablet, 500 MG PO DAILY Prescribed by: KENN AGOSTO on 10/21/181815 Meclizine HCl 25 Mg Tablet, 25 MG PO DAILY Prescribed by: KENN AGOSTO on 02/09/20 135 Medroxyprogesterone Acetate 150 Mg/1 Ml Syringe, 150 MG IM monthly, (Reported) Metoprolol Tartrate 25 Mg Tablet, 25 MG PO BID Prescribed by: JENNIE ARAMBULA on 08/15/172031 Multivit with Calcium,Iron,Min 1 Each Tablet, 1 EACH PO DAILY, (Reported) Ondansetron 8 Mg Tab.rapdis, 8 MG PO Q6H PRN for NAUSEA/VOMITING-1ST LINE Prescribed by: FREDERICK ANSARI on 08/18/17 1352 Patient Home Medication List Home Medication List Reviewed: Yes Review of Systems Review of Systems Constitutional: see HPI; No chills, No fever EENTM: see HPI; No blurred vision, No double vision Respiratory: no symptoms reported Cardiovascular: no symptoms reported Genitourinary: no symptoms reported Musculoskeletal: no symptoms reported Skin: no symptoms reported Psychiatric/Neurological: No Symptoms Reported Hematologic/Lymphatic: No Symptoms Reported Immunological/Allergic: no symptoms reported Past Zmhhagh-Nkwkse-Iwrkpk Hx Patient Social History Alcohol Use: Occasionally Uses Recreational Drug Use: No Smoking Status: Never a Smoker 2nd Hand Smoke Exposure: No Recent Foreign Travel: No Contact w/Someone Who Travel: No Recent Infectious Disease Expo: No Recent Hopitalizations: No Immunizations Up To Date Tetanus Booster (TDap): Unknown PED Vaccines UTD: Yes Date of Pneumonia Vaccine: Apr 05, 2011 Date of Influenza Vaccine: Mar 28, 2016 Seasonal Allergies Seasonal Allergies: Yes Past Medical History Surgeries: Yes (ablation for SVT) Cardiac, Section Respiratory: No Cardiac: Yes (SVT status post ablation) Palpitations Neurological: No Reproductive Disorders: No Female Reproductive Disorders: Denies Sexually Transmitted Disease: No HIV/AIDS: No Genitourinary: No Gastrointestinal: No Musculoskeletal: No Endocrine: No HEENT: No Cancer: No Psychosocial: No Integumentary: No Blood Disorders: No Family Medical History No Pertinent Family Hx Physical Exam Vital Signs Vital Signs - First Documented 02/09/20 10:45 Temp 36.9 Pulse 105 Resp 16 B/P (MAP) 111/84 (93) Pulse Ox 100 O2 Delivery Room Air Capillary Refill : Less Than 3 Seconds Height, Weight, BMI Height: 5'3.00" Weight: 145lbs. 0oz. [id number]; 57.00 BMI Method:Stated General Appearance: No Apparent Distress, WD/WN Eyes: Bilateral Eye Normal Inspection, Bilateral Eye PERRL, Bilateral Eye EOMI HEENT: PERRL/EOMI, TMs Normal Neck: Full Range of Motion, Normal Inspection Respiratory: Lungs Clear, Normal Breath Sounds, No Accessory Muscle Use, No Respiratory Distress Gastrointestinal: Normal Bowel Sounds, Non Tender, Soft Extremity: Normal Capillary Refill, Normal Inspection Neurologic/Psychiatric: Alert, Oriented x3 Skin: Normal Color, Warm/Dry Progress/Results/Core Measures Suspected Sepsis Recent Fever Within 48 Hours: No Infection Criteria Present: None New/Unexplained Altered Menta: No Sepsis Screen: No Definite Risk SIRS Temperature: Pulse: 105 Respiratory Rate: 16 Laboratory Tests 02/09/20 12:38: White Blood Count 6.3 Blood Pressure 111 /84 Mean: 93 Laboratory Tests 02/09/20 12:38: Creatinine 0.81, Platelet Count 275, Total Bilirubin 0.5 Results/Orders Lab Results Laboratory Tests Test 02/09/20 11:06 02/09/20 12:38 Range/Units Urine Color YELLOW Urine Clarity CLEAR Urine pH 7.0 5-9 Urine Specific [place] 1.010 L 1.016-1.022 Urine Protein NEGATIVE NEGATIVE Urine Glucose (UA) NEGATIVE NEGATIVE Urine Ketones NEGATIVE NEGATIVE Urine Nitrite NEGATIVE NEGATIVE Urine Bilirubin NEGATIVE NEGATIVE Urine Urobilinogen 0.2 < = 1.0 MG/DL Urine Leukocyte Esterase NEGATIVE NEGATIVE Urine RBC (Auto) 3+ H NEGATIVE Urine RBC TNTC H /HPF Urine WBC RARE /HPF Urine Squamous Epithelial Cells 0-2 /HPF Urine Crystals NONE /LPF Urine Bacteria FEW H /HPF Urine Casts NONE /LPF Urine Mucus NEGATIVE /LPF Urine Culture Indicated NO White Blood Count 6.3 4.3-11.0 10^3/uL Red Blood Count 4.86 4.35-5.85 10^6/uL Hemoglobin 13.8 11.5-16.0 G/DL Hematocrit 42 35-52 % Mean Corpuscular Volume 87 80-99 FL Mean Corpuscular Hemoglobin 28 25-34 PG Mean Corpuscular Hemoglobin Concent 33 32-36 G/DL Red Cell Distribution Width 14.6 H 10.0-14.5 % Platelet Count 275 130-400 10^3/uL Mean Platelet Volume 11.2 H 7.4-10.4 FL Neutrophils (%) (Auto) 65 42-75 % Lymphocytes (%) (Auto) 25 12-44 % Monocytes (%) (Auto) 9 0-12 % Eosinophils (%) (Auto) 2 0-10 % Basophils (%) (Auto) 0 0-10 % Neutrophils # (Auto) 4.0 1.8-7.8 X 10^3 Lymphocytes # (Auto) 1.6 1.0-4.0 X 10^3 Monocytes # (Auto) 0.5 0.0-1.0 X 10^3 Eosinophils # (Auto) 0.1 0.0-0.3 10^3/uL Basophils # (Auto) 0.0 0.0-0.1 10^3/uL Sodium Level 138 135-145 MMOL/L Potassium Level 4.1 3.6-5.0 MMOL/L Chloride Level 104 98-107 MMOL/L Carbon Dioxide Level 24 21-32 MMOL/L Anion Gap 10 5-14 MMOL/L Blood Urea Nitrogen 7 7-18 MG/DL Creatinine 0.81 0.60-1.30 MG/DL Estimat Glomerular Filtration Rate > 60 BUN/Creatinine Ratio 9 Glucose Level 89 70-105 MG/DL Calcium Level 9.2 8.5-10.1 MG/DL Corrected Calcium 8.8 8.5-10.1 MG/DL Total Bilirubin 0.5 0.1-1.0 MG/DL Aspartate Amino Transf (AST/SGOT) 21 5-34 U/L Alanine Aminotransferase (ALT/SGPT) 10 0-55 U/L Alkaline Phosphatase 72 40-136 U/L Total Protein 7.5 6.4-8.2 GM/DL Albumin 4.5 3.2-4.5 GM/DL My Orders Orders - KENN AGOSTO APRN Cbc With Automated Diff (02/09/20 12:00) Comprehensive Metabolic Panel (02/09/20 12:00) Fibrin Degradation Products (02/09/20 12:00) Ed Iv/Invasive Line Start (02/09/20 12:24) Ketorolac Injection (Toradol Injection) (02/09/20 12:30) Prochlorperazine Injection (Compazine In (02/09/20 12:30) Diphenhydramine Injection (Benadryl Inje (02/09/20 12:30) Lorazepam Injection (Ativan Injection) (02/09/20 13:00) Lorazepam Injection (Ativan Injection) (02/09/20 13:15) Medications Given in ED Current Medications Medications Dose Ordered Sig/Munira Route Start Time Stop Time Status Last Admin Dose Admin Diphenhydramine HCl 25 mg ONCE ONCE IVP 02/09/20 12:30 02/09/20 12:31 DC 02/09/20 12:43 25 MG Ketorolac Tromethamine 15 mg ONCE ONCE IVP 02/09/20 12:30 02/09/20 12:31 DC 02/09/20 12:40 15 MG Prochlorperazine Edisylate 5 mg ONCE ONCE IV 02/09/20 12:30 02/09/20 12:31 DC 02/09/20 12:42 5 MG Vital Signs/I&O 02/09/20 10:45 Temp 36.9 Pulse 105 Resp 16 B/P (MAP) 111/84 (93) Pulse Ox 100 O2 Delivery Room Air Capillary Refill : Less Than 3 Seconds Blood Pressure Mean: 93 Departure Communication (Admissions) She is currently on her menstrual cycle Impression Primary Impression: Vertigo Disposition: 01 HOME, SELF-CARE Condition: Stable Departure-Patient Inst. Decision time for Depature: 12:46 Referrals: [facility] (PCP/Family) Primary Care Physician Patient Instructions: Vertigo (a Type of Dizziness) (DC) Add. Discharge Instructions: 1. medication as directed 2. Return to ER for any concerns or worsening symptoms. 3. See your doctor later this week for follow up. All discharge instructions reviewed with patient and/or family. Voiced understanding. Scripts Meclizine HCl (Meclizine HCl) 25 Mg Tablet 25 MG PO DAILY, #20 TAB Prov: KENN AGOSTO APRN 02/09/20 KENN AGOSTO APRN Feb 09, 2020 12:46
[2020-02-09 12:54] LABS: ALBUMIN 4.5 GM/DL (3.2-4.5); CHLORIDE 104 MMOL/L (98-107); POTASSIUM 4.1 MMOL/L (3.6-5.0); SODIUM 138 MMOL/L (135-145)
[2020-02-09 12:55] LABS: CALCIUM 9.2 MG/DL (8.5-10.1)
[2020-02-09 12:56] LABS: GLUCOSE 89 MG/DL (70-105)
[2020-02-09 12:57] LABS: TOTAL PROTEIN 7.5 GM/DL (6.4-8.2)
[2020-02-09 12:58] LABS: BILIRUBIN,TOTAL 0.5 MG/DL (0.1-1.0); CARBON DIOXIDE 24 MMOL/L (21-32)
[2020-02-09 13:00] LABS: ALKALINE PHOSPHATASE 72 U/L (40-136); CREATININE SERUM 0.81 MG/DL (0.60-1.30); GFR ESTIMATED > 60
[2020-02-09] MEDS ORDERED: LORazepam INJ 2 MG/ML (ATIVAN) VIAL IVP PRN ×2 (13:00→13:15)
[2020-02-09 13:01] LABS: BUN/CREATININE RATIO 9
[2020-02-09 13:03] LABS: ALANINE AMINOTRANSFERASE 10 U/L (0-55)
[2020-02-09] MEDS ORDERED: MECL-149 PO (13:53)
--- NOTE | 2020-02-09 13:59 | NUR ---
KENN IN TALKING TO THE PT AT THIS TIME.
[2020-02-09] MEDS ORDERED: HOLD METFORMIN - RECEIVED CONTRAST 20 ML VIAL IV SCH (14:15)
[2020-02-09] MEDS ORDERED: IOHEXOL 350 MG/ML 100 ML (OMNIPAQUE 350) VIAL IV ONE (14:15)
[2020-02-09] MEDS ORDERED: NS 100 ML (IVPB) BAG IV ONE (14:15)
--- NOTE | 2020-02-09 14:16 | NUR ---
LAB HERE TO DRAW 2ND BLOOD CULTURE.
--- NOTE | 2020-02-09 14:32 | Diagnostic Imaging Report ---
PROCEDURE: CT angiography of the head and CT angiography of the neck with and without contrast. TECHNIQUE: Contiguous noncontrast images were obtained from the skull base through the vertex. After intravenous contrast administration, helical CT angiography of the neck was performed. Source data was reformatted into 3D MIP projections. Delayed post contrast acquisition was also obtained. Auto Exposure Controls were utilized during the CT exam to meet ALARA standards for radiation dose reduction. INDICATION: Dizziness. Nausea and confusion. COMPARISON: CT head on 04/21/2010. FINDINGS: CTA Neck: The visualized portions of the aortic arch demonstrate no evidence of aneurysm or dissection. There is conventional branching pattern of the great vessels of the aorta. The brachiocephalic artery is normal in course and caliber. The right and left common carotid origins are unremarkable. The origin of the left subclavian artery is patent. The common carotid arteries and internal carotid arteries demonstrate a normal course and caliber without evidence of stenosis or dissection. The external carotid arteries are patent and unremarkable. The vertebral arteries are codominant. The origin of the right vertebral artery is seen and is unremarkable. The origin of the left vertebral artery is seen and is unremarkable. There is no focal stenosis seen within the neck. There is no dissection. The vertebral arteries are well visualized to up to the level of the basilar artery. The osseous structures of the cervical spine are unremarkable. Included views through the lung apices demonstrate no focal consolidation. CTA brain: No evidence of stenosis in the bilateral distal ICAs. No stenosis is seen in the bilateral anterior, middle, and posterior cerebral arteries. No evidence of aneurysm the [place]. In the posterior circulation, both of the vertebral arteries demonstrate normal opacification. The vertebral arteries are codominant. Both the right and left PICA arteries are identified. The basilar artery is normal in course and caliber. The terminal branch vessels including the superior cerebellar arteries unremarkable. CT head: No large acute territorial ischemia, mass, or hemorrhage. No midline shift or mass effect. The ventricles, cortical sulci, and basilar cisterns are patent and unremarkable. The calvarium is intact. The visualized paranasal sinuses are clear. IMPRESSION: 1. No stenosis or aneurysm in the [place]. 2. No stenosis or dissection the bilateral carotid and vertebral arteries. 3. No large acute territorial ischemia, mass, or hemorrhage. Dictated by: Dictated on workstation # [id number]
[2020-02-09 14:49] VITALS: BP 118/68
== END 2020-02-09 14:49 | disposition home or self-care (01) ==
LOC: ER 10:41 → EDUNIT# 10:41 → ER 14:49
DX: R42 Dizziness and giddiness (principal); Z88.0 Allergy status to penicillin
CPT/HCPCS: 36415; 70496; 70498; 80053; 81000; 84703; 85025; 85379

== ENCOUNTER 2020-06-04 04:22 | Emergency (ER) | payer BC, OTHER ==
[~2020-06-04] VITALS: Ht 160 cm; Wt 68.0 kg
[~2020-06-04 04:22] MED LIST changes: +MECL-149 PO
[2020-06-04 04:35] VITALS: BP_SYST 103; BP_SYST 105; BP_SYST 107; BP_DIAS 66; BP_DIAS 68
[2020-06-04] MEDS ORDERED: ONDA4TAB11 (04:38)
[2020-06-04 04:51] LABS: BILIRUBIN,URINE NEGATIVE (NEGATIVE); CLARITY,URINE CLEAR; COLOR,URINE YELLOW; GLUCOSE, URINE (UA) NEGATIVE (NEGATIVE); KETONES,URINE NEGATIVE (NEGATIVE); LEUKOCYTE ESTERASE ,URINE NEGATIVE (NEGATIVE); NITRITE,URINE NEGATIVE (NEGATIVE); PROTEIN,URINE 1+ (NEGATIVE)
--- NOTE | 2020-06-04 04:57 | ED General ---
General Chief Complaint: Dizziness/Syncope Stated Complaint: 7 WKS PREG,ABD PAIN,SHAKING,COLD SWEATS Nursing Triage Note: c/o near syncopal episode after waking et. standing up with upper abdominal pain. reports pain gone now. Nursing Sepsis Screen: No Definite Risk Source of Information: Patient History of Present Illness Date Seen by Provider: Jun 04, 2020 Time Seen by Provider: 04:40 Initial Comments PT ARRIVES VIA POV FROM HOME STATES JUST PRIOR TO ARRIVAL, SHE WOKE UP AND HAD "A SEVERE, REALLY, REALLY INTENSE PAIN" IN EPIGASTRIC AREA--LASTED A COUPLE OF SECONDS AND WENT AWAY AND HAS NOT RETURNED STATES SHE GOT UP AND "HAD A SMITH" AND FELT DIZZY AND GOT REAL ANXIOUS, AND SHAKEY AND HAD "COLD SWEATS" AND "COULDN'T HEAR" AND HAD "TUNNEL VISION" AND SAT DOWN THOSE SYMPTOMS ARE GONE NOW STATES SHE IS 7 WEEKS --LMP 04/07/20. PT IS AB 3--LAST MISCARRIAGE IN AUGUST, AND HAD D&C. PT HAS BEEN SEEING SPECIALIST IN [place], AND HAS HAD LAB DONE, AND HAS FIRST OB APPOINTMENT WITH DR. SLAUGHTER AT [facility] ON 06/09/19. NO VAGINAL BLEEDING OR DISCHARGE NO URINARY SYMPTOMS HAS ONGOING NAUSEA/VOMITING WITH THIS , BUT NOT NOW. HAS CHRONIC CONSTIPATION NO FEVER NO RECENT ILLNESS NO CHEST PAIN OR SHORTNESS OF BREATH PT IS VERY ANXIOUS AND IS SCARED OF HAVING ANOTHER MISCARRIAGE. PCP: [facility] [facility] [place] T[employer] DEVELOPER: DR. SLAUGHTER AT [facility] Allergies and Home Medications Allergies Coded Allergies: Penicillins (Unverified Allergy, Unknown, 12/02/17) Home Medications Meclizine HCl 25 Mg Tablet, 25 MG PO DAILY Prescribed by: KENN AGOSTO on 02/09/20 1353 Multivit with Calcium,Iron,Min 1 Each Tablet, 1 EACH PO DAILY, (Reported) Ondansetron 8 Mg Tab.rapdis, 8 MG PO Q6H PRN for NAUSEA/VOMITING-1ST LINE Prescribed by: FREDERICK ANSARI on 08/18/17 1352 Patient Home Medication List Home Medication List Reviewed: Yes Review of Systems Review of Systems Constitutional: see HPI EENTM: no symptoms reported Respiratory: no symptoms reported Cardiovascular: no symptoms reported Gastrointestinal: see HPI Genitourinary: no symptoms reported Expected Date of Delivery: Jan 17, 2021 Musculoskeletal: no symptoms reported Skin: no symptoms reported Psychiatric/Neurological: See HPI, Anxiety Past Kzydobt-Ljdete-Xycrtn Hx Past Med/Social Hx: Reviewed and Corrections made Patient Social History Alcohol Use: Denies Use Recreational Drug Use: No Smoking Status: Never a Smoker 2nd Hand Smoke Exposure: No Recent Foreign Travel: No Contact w/Someone Who Travel: No Recent Infectious Disease Expo: No Recent Hopitalizations: No Immunizations Up To Date Tetanus Booster (TDap): Unknown PED Vaccines UTD: Yes Date of Pneumonia Vaccine: Apr 05, 2011 Date of Influenza Vaccine: Mar 28, 2016 Seasonal Allergies Seasonal Allergies: Yes Past Medical History Surgeries: Yes (ablation for SVT; D&C 08/2019) Cardiac, Section Respiratory: No Cardiac: Yes (SVT status post ablation) Irregular Heartbeat, Palpitations Neurological: No : Yes Expected Date of Delivery: Jan 17, 2021 Last Menstrual Period: Apr 05, 2020 Hx : 5 Hx Para: 1 Hx Total # of Abortions (Sp): 3 (&C 08/2019 WITH MISCARRIAGE) Reproductive Disorders: No Female Reproductive Disorders: Denies Sexually Transmitted Disease: No HIV/AIDS: No Genitourinary: No Gastrointestinal: No Musculoskeletal: No Endocrine: No HEENT: No Cancer: No Psychosocial: No Integumentary: No Blood Disorders: No Family Medical History No Pertinent Family Hx Physical Exam Vital Signs Vital Signs - First Documented 06/04/20 04:31 Temp 36.2 Pulse 64 Resp 16 B/P (MAP) 103/70 (81) Pulse Ox 100 O2 Delivery Room Air Capillary Refill : Less Than 3 Seconds Height, Weight, BMI Height: 5'3.00" Weight: 145lbs. 0oz. 65.769461bc; 26.00 BMI Method:Stated General Appearance: No Apparent Distress, WD/WN, Anxious (TEARFUL) Neck: Normal Inspection Respiratory: Normal Breath Sounds, No Accessory Muscle Use, No Respiratory Distress Cardiovascular: Regular Rate, Rhythm, No Edema, No JVD, No Murmur, Normal Peripheral Pulses Gastrointestinal: Normal Bowel Sounds, No Organomegaly, No Pulsatile Mass, Non Tender, Soft Back: No CVA Tenderness Extremity: Normal Inspection, No Pedal Edema Neurologic/Psychiatric: Alert, Oriented x3, No Motor/Sensory Deficits, bingo checker II- XII Norm as Tested, Other (VERY ANXIOUS) Skin: Normal Color, Warm/Dry Progress/Results/Core Measures Suspected Sepsis Recent Fever Within 48 Hours: No Infection Criteria Present: None New/Unexplained Altered Menta: No Sepsis Screen: No Definite Risk SIRS Temperature: Pulse: 64 Respiratory Rate: 16 Blood Pressure 105 /66 Mean: 79 Results/Orders Lab Results Laboratory Tests Test 06/04/20 04:40 Range/Units Urine Color YELLOW Urine Clarity CLEAR Urine pH 7.0 5-9 Urine Specific [place] 1.015 L 1.016-1.022 Urine Protein 1+ H NEGATIVE Urine Glucose (UA) NEGATIVE NEGATIVE Urine Ketones NEGATIVE NEGATIVE Urine Nitrite NEGATIVE NEGATIVE Urine Bilirubin NEGATIVE NEGATIVE Urine Urobilinogen 0.2 < = 1.0 MG/DL Urine Leukocyte Esterase NEGATIVE NEGATIVE Urine RBC (Auto) NEGATIVE NEGATIVE Urine RBC NONE /HPF Urine WBC 0-2 /HPF Urine Squamous Epithelial Cells 10-25 H /HPF Urine Crystals PRESENT H /LPF Urine Amorphous Sediment FEW ENA URATES H /LPF Urine Bacteria TRACE /HPF Urine Casts NONE /LPF Urine Mucus LARGE H /LPF Urine Culture Indicated NO My Orders Orders - AISSATOU MARTÍNEZ DO Ua Culture If Indicated (06/04/20 04:35) Vital Signs/I&O Capillary Refill : Less Than 3 Seconds Blood Pressure Mean: 79 Progress Note : Progress Note NO PAIN DURING ER STAY SYMPTOMS ESSENTIALLY RESOLVED AT DISMISSAL Departure Impression Primary Impression: BRIEF EPIGASTRIC PAIN Additional Impressions: 7 weeks gestation of Situational anxiety Disposition: 01 HOME, SELF-CARE Condition: Improved Departure-Patient Inst. Referrals: [facility] (PCP/Family) Primary Care Physician Patient Instructions: Abdominal Pain, Adult ED, Anxiety, Adult (DC) Add. Discharge Instructions: HOME, REST LOTS OF CLEAR LIQUIDS FOLLOW UP WITH YOUR OB DR NEXT WEEK SCHEDULED OR SOONER IF YOU HAVE PROBLEMS All discharge instructions reviewed with patient and/or family. Voiced understanding. AISSATOU MARTÍNEZ DO Jun 04, 2020 04:57
[2020-06-04 05:02] LABS: AMORPHOUS SEDIMENT,UR FEW AMOR URATES /LPF; BACTERIA,URINE TRACE /HPF; WBC,URINE 0-2 /HPF
== END 2020-06-04 05:24 | disposition home or self-care (01) ==
LOC: EDUNIT# 04:22 → ER 04:26
DX: O26.891 Other specified pregnancy related conditions, first trimester (principal); R10.13 Epigastric pain; F41.9 Anxiety disorder, unspecified; Z3A.01 Less than 8 weeks gestation of pregnancy; Z88.0 Allergy status to penicillin
CPT/HCPCS: 81000; 99283

== ENCOUNTER 2020-08-29 18:25 | Emergency (ER) | payer BC ==
[~2020-08-29] VITALS: Ht 160 cm; Wt 68.7 kg
[~2020-08-29 18:25] MED LIST changes: +ONDA4TAB11
[2020-08-29] MEDS ORDERED: NS IV 1000 ML 1,000 ML IV SCH (19:15)
[2020-08-29 19:20] LABS: BASOPHILS % (AUTO) 0 % (0-10); EOSINOPHILS # (AUTO) 0.2 10^3/uL (0.0-0.3); EOSINOPHILS % (AUTO) 2 % (0-10); HEMATOCRIT 36 % (35-52); HEMOGLOBIN 11.9 g/dL (11.5-16.0); LYMPHOCYTES % (AUTO) 25 % (12-44); MEAN CORPUSCULAR HEMOGLOBIN 30 pg (25-34); MEAN CORPUSCULAR HGB CONC 33 g/dL (32-36); MEAN CORPUSCULAR VOLUME 91 fL (80-99); MEAN PLATELET VOLUME 11.1 fL (9.0-12.2); MONOCYTES # (AUTO) 0.7 10^3/uL (0.0-1.0); MONOCYTES % (AUTO) 8 % (0-12); NEUTROPHILS # (AUTO) 5.2 10^3/uL (1.8-7.8); NEUTROPHILS % (AUTO) 64 % (42-75); PLATELET COUNT 225 10^3/uL (130-400); WHITE BLOOD COUNT 8.1 10^3/uL (4.3-11.0)
--- NOTE | 2020-08-29 19:29 | ED General ---
General Chief Complaint: Dizziness/Syncope Stated Complaint: FAINTING/DIZZY SPELLS 18 WKS PREG Nursing Triage Note: Patient ambulatory to ER with c/o dizziness and feeling of passing out. Patient states this began last night around 21:00 hours last night and has not improved today. Patient is 19 weeks with high risk with a due date of January 25. Patient states the dizziness is worse with walking and standing. Nursing Sepsis Screen: No Definite Risk Source of Information: Patient Exam Limitations: No Limitations History of Present Illness Date Seen by Provider: Aug 29, 2020 Time Seen by Provider: 19:00 Initial Comments To ER with reports of being of 18 weeks and 6 days G2. First was delivered at 34 weeks. She follows with Dr. Lopez for her high risk in [place]. She states she is high risk because of the early delivery with last and she is 35 years old. She is also on progesterone until 35 weeks for this . She also has a history of arrhythmia following her last that was treated with ablation and she is not on any medications for this. She presents today because of dizziness. She did have some dizziness with her last but this particular episode started last night at about 9 PM. This morning she awakened and felt dizzy upon standing. She got up to take a shower and again felt dizzy. Before coming here she sat on the toilet to urinate and nearly passed out with darkening of the periphery of her vision though she never lost consciousness. She put her head down between her legs and those symptoms improved. At this time she is not dizzy but it seems to be worse when she stands up. Timing/Duration: 1-2 Days Severity: Moderate Associated Systoms: Denies Symptoms Allergies and Home Medications Allergies Coded Allergies: Penicillins (Unverified Allergy, Unknown, 12/02/17) Home Medications Meclizine HCl 25 Mg Tablet, 25 MG PO DAILY Prescribed by: KENN AGOSTO on 02/09/20 1353 Multivit with Calcium,Iron,Min 1 Each Tablet, 1 EACH PO DAILY, (Reported) Ondansetron 8 Mg Tab.rapdis, 8 MG PO Q6H PRN for NAUSEA/VOMITING-1ST LINE Prescribed by: FREDERICK ANSARI on 08/18/17 1352 Patient Home Medication List Home Medication List Reviewed: Yes Review of Systems Review of Systems Constitutional: see HPI EENTM: see HPI Respiratory: no symptoms reported Cardiovascular: no symptoms reported Genitourinary: no symptoms reported Expected Date of Delivery: Jan 25, 2021 Musculoskeletal: see HPI Skin: no symptoms reported Psychiatric/Neurological: No Symptoms Reported Past Fskwqvx-Mvilod-Zfzyta Hx Patient Social History Alcohol Use: Denies Use Smoking Status: Never a Smoker 2nd Hand Smoke Exposure: No Recent Infectious Disease Expo: No Recent Hopitalizations: No Immunizations Up To Date Tetanus Booster (TDap): Unknown PED Vaccines UTD: Yes Date of Pneumonia Vaccine: Apr 05, 2011 Date of Influenza Vaccine: Mar 24, 2020 Seasonal Allergies Seasonal Allergies: Yes Past Medical History Surgeries: Yes (ablation for SVT; D&C 08/2019) Cardiac, Section Respiratory: No Cardiac: Yes (SVT status post ablation) Irregular Heartbeat, Palpitations Neurological: No : Yes Expected Date of Delivery: Jan 25, 2021 Last Menstrual Period: Apr 08, 2020 Reproductive Disorders: No Female Reproductive Disorders: Denies Sexually Transmitted Disease: No HIV/AIDS: No Genitourinary: No Gastrointestinal: No Musculoskeletal: No Endocrine: No HEENT: No Cancer: No Psychosocial: No Integumentary: No Blood Disorders: No Family Medical History No Pertinent Family Hx Physical Exam Vital Signs Vital Signs - First Documented 08/29/20 18:37 Temp 35.4 Pulse 84 Resp 16 B/P (MAP) 120/66 (84) Pulse Ox 98 O2 Delivery Room Air Capillary Refill : Less Than 3 Seconds Height, Weight, BMI Height: 5'3.00" Weight: 145lbs. 0oz. [id number]; 26.00 BMI Method:Stated General Appearance: No Apparent Distress, WD/WN Eyes: Bilateral Eye Normal Inspection, Bilateral Eye PERRL, Bilateral Eye EOMI Neck: Full Range of Motion, Normal Inspection Respiratory: Lungs Clear, Normal Breath Sounds, No Accessory Muscle Use, No Res piratory Distress Cardiovascular: Regular Rate, Rhythm, Normal Peripheral Pulses Gastrointestinal: Normal Bowel Sounds, Non Tender, Soft Extremity: Normal Capillary Refill, Normal Inspection Neurologic/Psychiatric: Alert, Oriented x3 Skin: Normal Color, Warm/Dry Progress/Results/Core Measures Suspected Sepsis Recent Fever Within 48 Hours: No Infection Criteria Present: None New/Unexplained Altered Menta: No Sepsis Screen: No Definite Risk SIRS Temperature: Pulse: 84 Respiratory Rate: 16 Laboratory Tests 08/29/20 18:59: White Blood Count 8.1 Blood Pressure 120 /66 Mean: 84 Laboratory Tests 08/29/20 18:59: Creatinine 0.69, Platelet Count 225, Total Bilirubin 0.3 Results/Orders Lab Results Laboratory Tests Test 08/29/20 18:59 08/29/20 19:30 Range/Units White Blood Count 8.1 4.3-11.0 10^3/uL Red Blood Count 3.97 3.80-5.11 10^6/uL Hemoglobin 11.9 11.5-16.0 g/dL Hematocrit 36 35-52 % Mean Corpuscular Volume 91 80-99 fL Mean Corpuscular Hemoglobin 30 25-34 pg Mean Corpuscular Hemoglobin Concent 33 32-36 g/dL Red Cell Distribution Width 13.3 10.0-14.5 % Platelet Count 225 130-400 10^3/uL Mean Platelet Volume 11.1 9.0-12.2 fL Immature Granulocyte % (Auto) 0 % Neutrophils (%) (Auto) 64 42-75 % Lymphocytes (%) (Auto) 25 12-44 % Monocytes (%) (Auto) 8 0-12 % Eosinophils (%) (Auto) 2 0-10 % Basophils (%) (Auto) 0 0-10 % Neutrophils # (Auto) 5.2 1.8-7.8 10^3/uL Lymphocytes # (Auto) 2.0 1.0-4.0 10^3/uL Monocytes # (Auto) 0.7 0.0-1.0 10^3/uL Eosinophils # (Auto) 0.2 0.0-0.3 10^3/uL Basophils # (Auto) 0.0 0.0-0.1 10^3/uL Immature Granulocyte # (Auto) 0.0 0.0-0.1 10^3/uL Sodium Level 137 135-145 MMOL/L Potassium Level 3.7 3.6-5.0 MMOL/L Chloride Level 105 98-107 MMOL/L Carbon Dioxide Level 23 21-32 MMOL/L Anion Gap 9 5-14 MMOL/L Blood Urea Nitrogen 7 7-18 MG/DL Creatinine 0.69 0.60-1.30 MG/DL Estimat Glomerular Filtration Rate > 60 BUN/Creatinine Ratio 10 Glucose Level 88 70-105 MG/DL Calcium Level 8.5 8.5-10.1 MG/DL Corrected Calcium 8.8 8.5-10.1 MG/DL Total Bilirubin 0.3 0.1-1.0 MG/DL Aspartate Amino Transf (AST/SGOT) 17 5-34 U/L Alanine Aminotransferase (ALT/SGPT) 9 0-55 U/L Alkaline Phosphatase 83 40-136 U/L Total Protein 6.3 L 6.4-8.2 GM/DL Albumin 3.6 3.2-4.5 GM/DL Urine Color YELLOW Urine Clarity CLOUDY Urine pH 7.5 5-9 Urine Specific Bernice 1.015 L 1.016-1.022 Urine Protein NEGATIVE NEGATIVE Urine Glucose (UA) NEGATIVE NEGATIVE Urine Ketones NEGATIVE NEGATIVE Urine Nitrite NEGATIVE NEGATIVE Urine Bilirubin NEGATIVE NEGATIVE Urine Urobilinogen 0.2 < = 1.0 MG/DL Urine Leukocyte Esterase NEGATIVE NEGATIVE Urine RBC (Auto) NEGATIVE NEGATIVE Urine RBC NONE /HPF Urine WBC NONE /HPF Urine Squamous Epithelial Cells NONE /HPF Urine Crystals PRESENT H /LPF Urine Amorphous Sediment LARGE ENA PHOSPHATE H /LPF Urine Bacteria LARGE H /HPF Urine Casts NONE /LPF Urine Mucus NEGATIVE /LPF Urine Culture Indicated YES My Orders Orders - KENN AGOSTO APRN Cbc With Automated Diff (08/29/20 18:52) Comprehensive Metabolic Panel (08/29/20 18:52) Ua Culture If Indicated (08/29/20 19:12) Ns Iv 1000 Ml (Sodium Chloride 0.9%) (08/29/20 19:15) Urine Culture (08/29/20 19:30) Vital Signs/I&O 08/29/20 18:37 Temp 35.4 Pulse 84 Resp 16 B/P (MAP) 120/66 (84) Pulse Ox 98 O2 Delivery Room Air Capillary Refill : Less Than 3 Seconds Blood Pressure Mean: 84 Departure Communication (Admissions) FHT 155 Impression Primary Impression: Orthostatic dizziness Additional Impression: Asymptomatic bacteriuria during Disposition: 01 HOME, SELF-CARE Condition: Improved Departure-Patient Inst. Decision time for Depature: 20:06 Referrals: [facility] (PCP/Family) Primary Care Physician Patient Instructions: Dizziness, Adult ED Add. Discharge Instructions: 1. Increase fluid intake. Antibiotics as directed. Follow-up with your doctor next week. All discharge instructions reviewed with patient and/or family. Voiced understanding. Scripts Cephalexin (Cephalexin) 500 Mg Tablet 500 MG PO TID, #9 TAB Prov: KENN AGOSTO APRN 08/29/20 KENN AGOSTO APRN Aug 29, 2020 19:28
[2020-08-29 19:35] LABS: ALANINE AMINOTRANSFERASE 9 U/L (0-55); ALBUMIN 3.6 GM/DL (3.2-4.5); ALKALINE PHOSPHATASE 83 U/L (40-136); BILIRUBIN,TOTAL 0.3 MG/DL (0.1-1.0); BUN/CREATININE RATIO 10; CALCIUM 8.5 MG/DL (8.5-10.1); CARBON DIOXIDE 23 MMOL/L (21-32); CHLORIDE 105 MMOL/L (98-107); CREATININE SERUM 0.69 MG/DL (0.60-1.30); GFR ESTIMATED > 60; GLUCOSE 88 MG/DL (70-105); POTASSIUM 3.7 MMOL/L (3.6-5.0); SODIUM 137 MMOL/L (135-145); TOTAL PROTEIN 6.3 GM/DL (6.4-8.2)
[2020-08-29 19:39] LABS: BILIRUBIN,URINE NEGATIVE (NEGATIVE); CLARITY,URINE CLOUDY; COLOR,URINE YELLOW; GLUCOSE, URINE (UA) NEGATIVE (NEGATIVE); KETONES,URINE NEGATIVE (NEGATIVE); LEUKOCYTE ESTERASE ,URINE NEGATIVE (NEGATIVE); NITRITE,URINE NEGATIVE (NEGATIVE); PH,URINE 7.5 (5-9); PROTEIN,URINE NEGATIVE (NEGATIVE)
[2020-08-29 19:48] LABS: AMORPHOUS SEDIMENT,UR LARGE AMOR PHOSPHATE /LPF; BACTERIA,URINE LARGE /HPF
[2020-08-29] MEDS ORDERED: CEPH500T PO (20:06)
[2020-08-29] MEDS ORDERED: CEPHALEXIN 250 MG (KEFLEX) CAP PO ONE (20:15)
[2020-08-29 20:50] VITALS: BP 103/66
== END 2020-08-29 20:52 | disposition home or self-care (01) ==
LOC: EDUNIT# 18:25 → ER 18:30
DX: O26.892 Other specified pregnancy related conditions, second trimester (principal); R42 Dizziness and giddiness; O23.42 Unspecified infection of urinary tract in pregnancy, second trimester; Z3A.18 18 weeks gestation of pregnancy; Z88.0 Allergy status to penicillin
CPT/HCPCS: 36415; 80053; 81000; 85025; 87088

== ENCOUNTER 2020-11-15 16:14 | Emergency (ER) | payer BC ==
[~2020-11-15] VITALS: Ht 160 cm; Wt 74.1 kg
[~2020-11-15 16:14] MED LIST changes: +CEPH500T PO
--- NOTE | 2020-11-15 17:24 | ED Lower Extremity ---
General Chief Complaint: Lower Extremity Stated Complaint: L FOOT INJ/30 WKS PREG Nursing Triage Note: PT STATES SHE FELL ON HER PORCH AND HAS L ANKLE PAIN. IS ALSO 30 WKS Nursing Sepsis Screen: No Definite Risk Source: patient Exam Limitations: no limitations History of Present Illness Date Seen by Provider: Nov 15, 2020 Time Seen by Provider: 17:23 Initial Comments To ER with c/o left ankle pain and swelling. Is 30 weeks Onset: just prior to arrival Severity: moderate Pain/Injury Location: left ankle Method of Injury: twisted Modifying Factors: Worse With Movement Allergies and Home Medications Allergies Coded Allergies: Penicillins (Unverified Allergy, Unknown, 12/02/17) Home Medications Cephalexin 500 Mg Tablet, 500 MG PO TID Prescribed by: KENN AGOSTO on 08/29/202005 Meclizine HCl 25 Mg Tablet, 25 MG PO DAILY Prescribed by: KENN AGOSTO on 02/09/20 1353 Multivit with Calcium,Iron,Min 1 Each Tablet, 1 EACH PO DAILY, (Reported) Ondansetron 8 Mg Tab.rapdis, 8 MG PO Q6H PRN for NAUSEA/VOMITING-1ST LINE Prescribed by: FREDERICK ANSARI on 08/18/17 1352 Patient Home Medication List Home Medication List Reviewed: Yes Review of Systems Constitutional: see HPI EENTM: see HPI Respiratory: no symptoms reported Cardiovascular: no symptoms reported Genitourinary: no symptoms reported Musculoskeletal: see HPI Skin: no symptoms reported Psychiatric/Neurological: No Symptoms Reported Past Jtcjwva-Blvlkl-Spzkmo Hx Patient Social History Alcohol Use: Denies Use Smoking Status: Former Smoker 2nd Hand Smoke Exposure: No Recent Infectious Disease Expo: No Recent Hopitalizations: No Immunizations Up To Date Tetanus Booster (TDap): Unknown PED Vaccines UTD: Yes Date of Pneumonia Vaccine: Apr 05, 2011 Date of Influenza Vaccine: Mar 24, 2020 Seasonal Allergies Seasonal Allergies: Yes Past Medical History Surgeries: Yes (ablation for SVT; D&C 08/2019) Cardiac, Section Respiratory: No Cardiac: Yes (SVT status post ablation) Irregular Heartbeat, Palpitations Neurological: No Expected Date of Delivery: Jan 25, 2021 Hx : 6 Hx Para: 1 Hx Total # of Abortions (Sp): 4 Reproductive Disorders: No Female Reproductive Disorders: Denies Sexually Transmitted Disease: No HIV/AIDS: No Genitourinary: No Gastrointestinal: No Musculoskeletal: No Endocrine: No HEENT: No Cancer: No Psychosocial: No Integumentary: No Blood Disorders: No Family Medical History No Pertinent Family Hx Physical Exam Vital Signs Vital Signs - First Documented 11/15/20 16:52 Temp 37.1 Pulse 85 Resp 18 B/P (MAP) 110/80 (90) Pulse Ox 98 Capillary Refill : Less Than 3 Seconds Height, Weight, BMI Height: 5'3.00" Weight: 145lbs. 0oz. 65.110856yz; 28.00 BMI Method:Stated General Appearance: WD/WN, no apparent distress Neck: non-tender, full range of motion Respiratory: no respiratory distress, no accessory muscle use Hips: bilateral hip non-tender, bilateral hip normal inspection, bilateral hip normal range of motion Legs: bilateral leg non-tender, bilateral leg normal inspection, bilateral leg normal range of motion Knees: bilateral knee non-tender, bilateral knee normal inspection, bilateral knee normal range of motion Ankles: left ankle soft tissue tenderness, left ankle swelling Feet: bilateral foot non-tender, bilateral foot normal inspection, bilateral foot normal range of motion Neurologic/Psychiatric: alert, normal mood/affect, oriented x 3 Skin: normal color, warm/dry Progress/Results/Core Measures Results/Orders My Orders Orders - KENN AGOSTO APRN Ankle, Left, 3 Views (11/15/20 17:00) Tibia/Fibula, Left, 2 Views (11/15/20 17:00) Vital Signs/I&O 11/15/20 16:52 Temp 37.1 Pulse 85 Resp 18 B/P (MAP) 110/80 (90) Pulse Ox 98 Blood Pressure Mean: 90 Departure Impression Primary Impression: Sprain and strain of ankle Disposition: 01 HOME, SELF-CARE Condition: Stable Departure-Patient Inst. Decision time for Depature: 17:42 [facility] ([facility]) Primary Care Physician Patient Instructions: Ankle Sprain (DC) Add. Discharge Instructions: Keep the ankle elevated as much as possible for the next 2 to 3 days. Tylenol for pain control. Ice pack to the area. [place] wrap to the area. Follow-up with your doctor later this week for recheck. All discharge instructions reviewed with patient and/or family. Voiced understanding. KENN AGOSTO APRN Nov 15, 2020 17:24
--- NOTE | 2020-11-15 17:39 | Diagnostic Imaging Report ---
INDICATION: Pain over both malleoli after a fall from the porch. 30 weeks . FINDINGS: There views of the left ankle demonstrate soft tissue swelling. No fracture or dislocation is present. IMPRESSION: There is soft tissue swelling of the left ankle. Dictated by: Dictated on workstation # [id number]
--- NOTE | 2020-11-15 17:40 | Diagnostic Imaging Report ---
INDICATION: Fell off of the porch. Pain to both malleoli. 30 weeks . FINDINGS: Frontal and lateral views of the left leg demonstrate normal ossification. No fracture is present. IMPRESSION: Normal left tibia and fibula. Dictated by: Dictated on workstation # [id number]
[2020-11-15 17:52] VITALS: BP 110/80
== END 2020-11-15 17:55 | disposition home or self-care (01) ==
LOC: EDUNIT# 16:14 → ER 16:15
DX: O26.893 Other specified pregnancy related conditions, third trimester (principal); S93.402A Sprain of unspecified ligament of left ankle, initial encounter; Z3A.30 30 weeks gestation of pregnancy; Z87.891 Personal history of nicotine dependence; X50.1XXA Overexertion from prolonged static or awkward postures, initial encounter
CPT/HCPCS: 73590; 73610

== ENCOUNTER 2021-01-08 11:16 | Outpatient (CLI) | payer BC, OTHER ==
[2021-01-08 11:13] VITALS: BP 130/87
[2021-01-08] MEDS ORDERED: EPINEPHrine INJECTION 1 MG/ML AMP IM PRN (11:30)
[2021-01-08] MEDS ORDERED: CASIRIVIMAB/IMDEVIMAB 1,200 MG in NS (IVPB) 250 ML IV ONE (11:30)
[2021-01-08] MEDS ORDERED: diphenhydrAMINE 50 MG/ML INJ (BENADRYL) IV PRN (11:30)
[2021-01-08 12:28] VITALS: BP 118/78
== END 2021-01-08 13:13 | disposition home or self-care (01) ==
LOC: INFUSION 11:16
PROVIDERS: ATTEND Nurse Practitioner Family
DX: Z23 Encounter for immunization (principal); U07.1 COVID-19

== ENCOUNTER 2021-10-18 16:37 | Emergency (ER) | payer BC, OTHER ==
[~2021-10-18 16:37] MED LIST changes: -LEVO500T80 PO; +LEVO500T81 PO
[2021-10-18 17:25] LABS: BILIRUBIN,URINE NEGATIVE (NEGATIVE); CLARITY,URINE SL CLOUDY; COLOR,URINE YELLOW; GLUCOSE, URINE (UA) NEGATIVE (NEGATIVE); KETONES,URINE TRACE (NEGATIVE); LEUKOCYTE ESTERASE ,URINE NEGATIVE (NEGATIVE); NITRITE,URINE NEGATIVE (NEGATIVE); PH,URINE 8.5 (5-9); PROTEIN,URINE TRACE (NEGATIVE)
[2021-10-18 17:35] LABS: BACTERIA,URINE NEGATIVE /HPF; WBC,URINE RARE /HPF
[2021-10-18] MEDS ORDERED: LACTATED RINGERS 1,000 ML IV SCH (18:00)
[2021-10-18] MEDS ORDERED: ONDANSETRON 4 MG/2 ML (SDV) Z0FRAN IVP ONE (18:00)
--- NOTE | 2021-10-18 18:03 | ED GI ---
General Chief Complaint: Abdominal/GI Problems Stated Complaint: SYNCOPE Nursing Triage Note: PT AMB TO RM 9 WITH C/O D/V SINCE 1100 TODAY AND A SYNCOPAL EPISODE TODAY Source of Information: Patient Exam Limitations: No Limitations (KENN AGOSTO APRN) History of Present Illness Date Seen by Provider: October 18, 2021 Time Seen by Provider: 18:01 Initial Comments To ER with diarrhea and nausea/dry heaving since about 11 AM today associated with chills. No measured fever no cough. She has had body aches. 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 She is having diarrhea several times per hour. She was tested for COVID and flu by the school nurse and those were negative. Timing/Duration: 4-6 Hours Severity/Quality: Moderate Location: Generalized Abdomen Radiation: No Radiation Activities at Onset: None Associated Symptoms: Nausea/Vomiting (KENN AGOSTO APRN) Allergies and Home Medications Allergies Coded Allergies: Penicillins (Unverified Allergy, Unknown, 12/02/17) Patient Home Medication List Home Medication List Reviewed: Yes (KENN AGOSTO APRN) Cephalexin (Cephalexin) 500 Mg Tablet, 500 MG PO TID Prescribed by: KENN AGOSTO on 08/29/202005 Meclizine HCl (Meclizine HCl) 25 Mg Tablet, 25 MG PO DAILY Prescribed by: KENN AGOSTO on 02/09/20 1353 Multivit with Calcium,Iron,Min (Women's Daily Formula) 1 Each Tablet, 1 EACH PO DAILY, (Reported) Entered as Reported by: MINNIE PONCE on 05/09/16 2341 Ondansetron (Ondansetron Odt) 8 Mg Tab.rapdis, 8 MG PO Q6H PRN for NAUSEA/VOMITING-1ST LINE Prescribed by: FREDERICK ANSARI on 08/18/17 1352 Ondansetron (Ondansetron Odt) 4 Mg Tab.rapdis, (Reported) Entered as Reported by: SHAHANA MADRIGAL on 06/04/20 0438 Ondansetron (Ondansetron Odt) 8 Mg Tab.rapdis, 8 MG PO Q6H PRN for NAUSE A/VOMITING Prescribed by: KENN AGOSTO on 10/18/21 1834 Review of Systems Review of Systems Constitutional: see HPI EENTM: No Symptoms Reported Respiratory: No Symptoms Reported Cardiovascular: No Symptoms Reported Gastrointestinal: See HPI; Denies Abdominal Pain; Diarrhea, Nausea, Vomiting Genitourinary: No Symptoms Reported Musculoskeletal: no symptoms reported Skin: no symptoms reported Psychiatric/Neurological: No Symptoms Reported Endocrine: No Symptoms Reported Hematologic/Lymphatic: No Symptoms Reported (KENN AGOSTO APRN) Past Iypgcpi-Svpulp-Lncdxd Hx Patient Social History Tobacco Use?: No Use of E-Cig and/or Vaping dev: No Substance use?: No Alcohol Use?: Yes Alcohol type: Beer Alcohol Frequency: Rarely Pt feels they are or have been: No (KENN AGOSTO APRN) Immunizations Up To Date Tetanus Booster (TDap): Unknown PED Vaccines UTD: Yes First/Initial COVID19 Vaccinat: 2020 Second COVID19 Vaccination Sánchez: 2020 COVID19 Vaccine Sander Setter: JULIUS (KENN AGOSTO APRN) Seasonal Allergies Seasonal Allergies: Yes (KENN AGOSTO APRN) Past Medical History Surgery/Hospitalization HX: PP DEPRESSION, ANXIETY Surgeries: Yes (ablation for SVT; D&C 08/2019) Cardiac, Section Respiratory: No Cardiac: Yes (SVT status post ablation) Irregular Heartbeat, Palpitations Neurological: No Last Menstrual Period: Sep 07, 2021 Reproductive Disorders: No Female Reproductive Disorders: Denies Sexually Transmitted Disease: No HIV/AIDS: No Genitourinary: No Gastrointestinal: No Musculoskeletal: No Endocrine: No HEENT: No Cancer: No Psychosocial: No Integumentary: No Blood Disorders: No (KENN AGOSTO APRN) Family Medical History No Pertinent Family Hx (KENN AGOSTO APRN) Physical Exam Vital Signs Vital Signs - First Documented 10/18/21 10/18/21 16:45 19:09 Temp 36.7 Pulse 83 Resp 18 B/P (MAP) 116/71 (86) Pulse Ox 99 (LAURA MARTINEZ MD) Vital Signs Capillary Refill : (KENN AGOSTO APRN) Height/Weight/BMI Height: 5'3.00" Weight: 145lbs. 0oz. 65.247418dr; 28.00 BMI Method:Stated General Appearance: WD/WN, no apparent distress Neck: non-tender, full range of motion Respiratory: no respiratory distress, no accessory muscle use Cardiovascular: regular rate, rhythm, no murmur Gastrointestinal: normal bowel sounds, non tender, soft Extremities: normal range of motion, non-tender Neurologic/Psychiatric: alert, normal mood/affect, oriented x 3 Skin: normal color, warm/dry (KENN AGOSTO APRN) Progress/Results/Core Measures Results/Orders Lab Results Laboratory Tests Test 10/18/21 17:22 10/18/21 18:18 Range/Units Urine Color YELLOW Urine Clarity SL CLOUDY Urine pH 8.5 5-9 Urine Specific [place] 1.010 L 1.016-1.022 Urine Protein TRACE H NEGATIVE Urine Glucose (UA) NEGATIVE NEGATIVE Urine Ketones TRACE H NEGATIVE Urine Nitrite NEGATIVE NEGATIVE Urine Bilirubin NEGATIVE NEGATIVE Urine Urobilinogen 0.2 < = 1.0 MG/DL Urine Leukocyte Esterase NEGATIVE NEGATIVE Urine RBC (Auto) NEGATIVE NEGATIVE Urine RBC NONE /HPF Urine WBC RARE /HPF Urine Squamous Epithelial Cells 5-10 /HPF Urine Crystals NONE /LPF Urine Bacteria NEGATIVE /HPF Urine Casts NONE /LPF Urine Mucus NEGATIVE /LPF Urine Culture Indicated NO White Blood Count 9.5 4.3-11.0 10^3/uL Red Blood Count 5.01 3.80-5.11 10^6/uL Hemoglobin 14.7 11.5-16.0 g/dL Hematocrit 44 35-52 % Mean Corpuscular Volume 88 80-99 fL Mean Corpuscular Hemoglobin 29 25-34 pg Mean Corpuscular Hemoglobin Concent 33 32-36 g/dL Red Cell Distribution Width 13.2 10.0-14.5 % Platelet Count 238 130-400 10^3/uL Mean Platelet Volume 11.0 9.0-12.2 fL Immature Granulocyte % (Auto) 0 % Neutrophils (%) (Auto) 89 H 42-75 % Lymphocytes (%) (Auto) 4 L 12-44 % Monocytes (%) (Auto) 6 0-12 % Eosinophils (%) (Auto) 1 0-10 % Basophils (%) (Auto) 0 0-10 % Neutrophils # (Auto) 8.4 H 1.8-7.8 10^3/uL Lymphocytes # (Auto) 0.4 L 1.0-4.0 10^3/uL Monocytes # (Auto) 0.6 0.0-1.0 10^3/uL Eosinophils # (Auto) 0.1 0.0-0.3 10^3/uL Basophils # (Auto) 0.0 0.0-0.1 10^3/uL Immature Granulocyte # (Auto) 0.0 0.0-0.1 10^3/uL Neutrophils % (Manual) 90 % Lymphocytes % (Manual) 2 % Monocytes % (Manual) 3 % Eosinophils % (Manual) 1 % Basophils % (Manual) 0 % Band Neutrophils 4 % Blood Morphology Comment NORMAL Sodium Level 134 L 135-145 MMOL/L Potassium Level 3.7 3.6-5.0 MMOL/L Chloride Level 98 98-107 MMOL/L Carbon Dioxide Level 25 21-32 MMOL/L Anion Gap 11 5-14 MMOL/L Blood Urea Nitrogen 13 7-18 MG/DL Creatinine 0.78 0.60-1.30 MG/DL Estimat Glomerular Filtration Rate 101 BUN/Creatinine Ratio 17 Glucose Level 115 H 70-105 MG/DL Calcium Level 9.1 8.5-10.1 MG/DL Corrected Calcium 8.5-10.1 MG/DL Total Bilirubin 0.9 0.1-1.0 MG/DL Aspartate Amino Transf (AST/SGOT) 19 5-34 U/L Alanine Aminotransferase (ALT/SGPT) 8 0-55 U/L Alkaline Phosphatase 104 40-136 U/L Total Protein 7.3 6.4-8.2 GM/DL Albumin 4.6 H 3.2-4.5 GM/DL Serum Test, Qualitative NEGATIVE NEGATIVE (LAURA MARTINEZ MD) Medications Given in ED Current Medications Medications Dose Ordered Sig/Munira Route Start Time Stop Time Status Last Admin Dose Admin Ketorolac Tromethamine 15 mg ONCE ONCE IVP 10/18/21 18:15 10/18/21 18:16 DC 10/18/21 18:10 15 MG Ondansetron HCl 8 mg ONCE ONCE IVP 10/18/21 18:00 10/18/21 18:01 DC 10/18/21 18:10 8 MG (LAURA MARTINEZ MD) Vital Signs/I&O 10/18/21 10/18/21 16:45 19:09 Temp 36.7 Pulse 83 74 Resp 18 18 B/P (MAP) 116/71 (86) 119/70 Pulse Ox 99 (LAURA MARTINEZ MD) Blood Pressure Mean: 86 Departure Impression Primary Impression: Gastroenteritis Additional Impression: Syncope and collapse Disposition: 01 HOME, SELF-CARE Condition: Stable Departure-Patient Inst. Decision time for Depature: 18:33 (KENN AGOSTO APRN) Referrals: [facility] [place] ([place]/Family) Primary Care Physician Patient Instructions: Fainting, Adult ED, [id number] Add. Discharge Instructions: All discharge instructions reviewed with patient and/or family. Voiced understanding. Scripts Ondansetron (Ondansetron Odt) 8 Mg Tab.rapdis 8 MG PO Q6H PRN for NAUSEA/VOMITING, #10 TAB Prov: KENN AGOSTO APRN 10/18/21 Work/School Note: Work Release Form Date Seen in the Emergency Department: October 18, 2021 Return to Work: October 20, 2021 PHYSICIAN ATTESTATION NOTE: I was present in the ER while TRIM MECHANIC / PA saw the patient, but I was not involved in the care, exam, or management of the patient. (LAURA MARTINEZ MD) KENN AGOSTO APRN October 18, 2021 18:03 LAURA MARTINEZ MD October 19, 2021 04:06
[2021-10-18] MEDS ORDERED: KETOROLAC 30 MG/ML VIAL IVP ONE (18:15)
[2021-10-18 18:30] LABS: BASOPHILS % (AUTO) 0 % (0-10); EOSINOPHILS # (AUTO) 0.1 10^3/uL (0.0-0.3); EOSINOPHILS % (AUTO) 1 % (0-10); HEMATOCRIT 44 % (35-52); HEMOGLOBIN 14.7 g/dL (11.5-16.0); LYMPHOCYTES # (AUTO) 0.4 10^3/uL (1.0-4.0); LYMPHOCYTES % (AUTO) 4 % (12-44); MEAN CORPUSCULAR HEMOGLOBIN 29 pg (25-34); MEAN CORPUSCULAR HGB CONC 33 g/dL (32-36); MEAN CORPUSCULAR VOLUME 88 fL (80-99); MONOCYTES # (AUTO) 0.6 10^3/uL (0.0-1.0); MONOCYTES % (AUTO) 6 % (0-12); NEUTROPHILS # (AUTO) 8.4 10^3/uL (1.8-7.8); NEUTROPHILS % (AUTO) 89 % (42-75); PLATELET COUNT 238 10^3/uL (130-400); WHITE BLOOD COUNT 9.5 10^3/uL (4.3-11.0)
[2021-10-18] MEDS ORDERED: ONDA8TAB13 PO (18:34)
[2021-10-18 18:43] LABS: ALBUMIN 4.6 GM/DL (3.2-4.5); CHLORIDE 98 MMOL/L (98-107); POTASSIUM 3.7 MMOL/L (3.6-5.0); SODIUM 134 MMOL/L (135-145)
[2021-10-18 18:44] LABS: CALCIUM 9.1 MG/DL (8.5-10.1)
[2021-10-18 18:45] LABS: GLUCOSE 115 MG/DL (70-105); TOTAL PROTEIN 7.3 GM/DL (6.4-8.2)
[2021-10-18 18:46] LABS: CARBON DIOXIDE 25 MMOL/L (21-32)
[2021-10-18 18:47] LABS: BILIRUBIN,TOTAL 0.9 MG/DL (0.1-1.0)
[2021-10-18 18:48] LABS: ALKALINE PHOSPHATASE 104 U/L (40-136)
[2021-10-18 18:49] LABS: CREATININE SERUM 0.78 MG/DL (0.60-1.30); GFR ESTIMATED 101
[2021-10-18 18:50] LABS: BUN/CREATININE RATIO 17
[2021-10-18 18:52] LABS: ALANINE AMINOTRANSFERASE 8 U/L (0-55)
[2021-10-18 19:01] LABS: BAND NEUTROPHILS 4 %; BASOPHILS % (MANUAL) 0 %; EOSINOPHILS % (MANUAL) 1 %; LYMPHOCYTES % (MANUAL) 2 %; MONOCYTES % (MANUAL) 3 %; NEUTROPHILS % (MANUAL) 90 %
[2021-10-18 19:02] LABS: RBC MORPH NORMAL
[2021-10-18 19:09] VITALS: BP 119/70
== END 2021-10-18 19:51 | disposition home or self-care (01) ==
LOC: EDUNIT# 16:37 → ER 16:38
DX: R55 Syncope and collapse (principal); K52.9 Noninfective gastroenteritis and colitis, unspecified; Z32.02 Encounter for pregnancy test, result negative
CPT/HCPCS: 36415; 80053; 81000; 84703; 85007; 85027; 93005

== ENCOUNTER 2022-03-14 01:15 | Emergency (ER) | payer BC, OTHER ==
[~2022-03-14] VITALS: Ht 162 cm; Wt 72.5 kg
[~2022-03-14 01:15] MED LIST changes: +LEVO-55 PO; -LEVO500T81 PO
[2022-03-14] MEDS ORDERED: BENZONATATE 100 MG (TESSALON) CAPSULE PO ONE (01:30)
--- NOTE | 2022-03-14 02:12 | ED Cough/URI ---
General Chief Complaint: Cough/Cold/Flu Symptoms Stated Complaint: COVID+,BACK PAIN,SHAKING,DIZZY Nursing Triage Note: PATIENT POSITIVE WITH HOME COVID TEST. PATIENT STATES SHE HAS HAD A COUGH FOR TWO DAYS. STATES CONCERNED BECAUSE SHE CAN "TASTE BLOOD" WITH COUGHING. PATIENT STATES BACK PAIN ALSO. Source: patient Exam Limitations: no limitations (MARQUIS NOONAN) History of Present Illness Date Seen by Provider: Mar 14, 2022 Time Seen by Provider: 13:40 Initial Comments This is a 37 year old female who presents with aches, cough, and SOA. Patient states she began to feel achey in the evening on 03/12. She states her 14 month old daughter recently had RSV and she attributed her symptoms to a possible related viral illness. She proceeded to feel worse throughout 03/13 and took a home COVID test in the evening that was positive. Patient states she developed a cough on 03/13 that has been getting worse. She reports the cough is dry however it is painful and she says it tastes as if she is coughing up blood. Patient denies hemoptysis. Patient reports associated symptoms of back pain, SOA, and anterior chest pain when coughing. The patient reports she came to the ER today due to worsening cough, back pain, and SOA. Timing/Duration: other (two days ago) Severity/Quality: dry cough Modifying Factors: Worse With Coughing, Worse With Lying Down Associated Symptoms: cough, fever/chills, shortness of breath (MARQUIS NOONAN) Allergies and Home Medications Allergies Coded Allergies: Penicillins (Unverified Allergy, Unknown, 12/02/17) Patient Home Medication List Home Medication List Reviewed: Yes (MARQUIS NOONAN) Cephalexin (Cephalexin) 500 Mg Tablet, 500 MG PO TID Prescribed by: KENN AGOSTO on 08/29/202005 Meclizine HCl (Meclizine HCl) 25 Mg Tablet, 25 MG PO DAILY Prescribed by: KENN AGOSTO on 02/09/20 1353 Multivit with Calcium,Iron,Min (Women's Daily Formula) 1 Each Tablet, 1 EACH PO DAILY, (Reported) Entered as Reported by: MINNIE PONCE on 05/09/16 3755 Ondansetron (Ondansetron Odt) 8 Mg Tab.rapdis, 8 MG PO Q6H PRN for NAUSEA/VOMITING-1ST LINE Prescribed by: FREDERICK ANSARI on 08/18/17 1352 Ondansetron (Ondansetron Odt) 4 Mg Tab.rapdis, (Reported) Entered as Reported by: SHAHANA MADRIGAL on 06/04/20 0438 Ondansetron (Ondansetron Odt) 8 Mg Tab.rapdis, 8 MG PO Q6H PRN for NAUSEA/VOMITING Prescribed by: KENN AGOSTO on 10/18/21 0094 Review of Systems Review of Systems Constitutional: malaise EENTM: no symptoms reported; No throat pain Respiratory: cough; No hemoptysis; short of breath; No wheezing Cardiovascular: chest pain, Hx of Intervention (history of cardiac ablation due to SVT); No palpitations Gastrointestinal: no symptoms reported; No nausea, No vomiting; other (patient reports lower abdominal cramping due to menstrual cramps) Genitourinary: no symptoms reported : No Musculoskeletal: back pain Skin: no symptoms reported Psychiatric/Neurological: No Symptoms Reported Hematologic/Lymphatic: No Symptoms Reported Immunological/Allergic: no symptoms reported (MARQUIS NOONAN) All Other Systems Reviewed Negative Unless Noted: Yes (MARQUIS NOONAN) Past Fqscwjg-Hhnakb-Hatnnd Hx Patient Social History Tobacco Use?: No Substance use?: No Alcohol Use?: Yes Alcohol type: Wine Alcohol Frequency: Once in a while (MARQUIS NOONAN) Immunizations Up To Date Tetanus Booster (TDap): Unknown PED Vaccines UTD: Yes First/Initial COVID19 Vaccinat: 2020 Second COVID19 Vaccination Sánchez: 2020 Third COVID19 Vaccination Date: 2020 (MARQUIS NOONAN) Seasonal Allergies Seasonal Allergies: Yes (MARQUIS NOONAN) Past Medical History Surgery/Hospitalization HX: PP DEPRESSION, ANXIETY Surgeries: Yes (ablation for SVT; D&C 08/2019) Cardiac, Section Respiratory: No Cardiac: Yes (SVT status post ablation) Irregular Heartbeat, Palpitations Neurological: No Reproductive Disorders: No Female Reproductive Disorders: Denies Sexually Transmitted Disease: No HIV/AIDS: No Genitourinary: No Gastrointestinal: No Musculoskeletal: No Endocrine: No HEENT: No Cancer: No Psychosocial: No Integumentary: No Blood Disorders: No (MARQUIS NOONAN) Family Medical History No Pertinent Family Hx (MARQUIS NOONAN) Physical Exam Vital Signs - First Documented 03/14/22 03/14/22 01:25 01:36 Temp 37.4 Pulse 104 Resp 20 B/P (MAP) 127/76 (93) Pulse Ox 97 O2 Delivery Room Air O2 Flow Rate 93.00 (LILLY ESPINAL MD) Capillary Refill : Less Than 3 Seconds (MARQUIS NOONAN) Height: 5'3.00" Weight: 145lbs. 0oz. [id number]; 27.00 BMI Method:Stated General Appearance: WD/WN, mild distress (patient is tachycardic) Respiratory: chest non-tender, lungs clear, normal breath sounds, no respiratory distress, no accessory muscle use Cardiovascular: regular rate, rhythm Gastrointestinal: normal bowel sounds, non tender, soft Neurologic/Psychiatric: alert, normal mood/affect, oriented x 3 Skin: normal color, warm/dry Lymphatic: no adenopathy This exam was performed by Dr. Espinal and dictated to me (MARQUIS NOONAN) Progress/Results/Core Measures Suspected Sepsis SIRS Temperature: Pulse: 104 Respiratory Rate: 20 Laboratory Tests 03/14/22 01:59: White Blood Count 3.5L Blood Pressure 127 /76 Mean: 93 Laboratory Tests 03/14/22 01:59: Platelet Count 197 (MARQUIS NOONAN) Results/Orders Lab Results Laboratory Tests Test 03/14/22 01:59 Range/Units White Blood Count 3.5 L 4.3-11.0 10^3/uL Red Blood Count 4.24 3.80-5.11 10^6/uL Hemoglobin 12.0 11.5-16.0 g/dL Hematocrit 37 35-52 % Mean Corpuscular Volume 86 80-99 fL Mean Corpuscular Hemoglobin 28 25-34 pg Mean Corpuscular Hemoglobin Concent 33 32-36 g/dL Red Cell Distribution Width 13.4 10.0-14.5 % Platelet Count 197 130-400 10^3/uL Mean Platelet Volume 11.4 9.0-12.2 fL Immature Granulocyte % (Auto) 0 % Neutrophils (%) (Auto) 68 42-75 % Lymphocytes (%) (Auto) 15 12-44 % Monocytes (%) (Auto) 16 H 0-12 % Eosinophils (%) (Auto) 1 0-10 % Basophils (%) (Auto) 1 0-10 % Neutrophils # (Auto) 2.3 1.8-7.8 10^3/uL Lymphocytes # (Auto) 0.5 L 1.0-4.0 10^3/uL Monocytes # (Auto) 0.6 0.0-1.0 10^3/uL Eosinophils # (Auto) 0.0 0.0-0.3 10^3/uL Basophils # (Auto) 0.0 0.0-0.1 10^3/uL Immature Granulocyte # (Auto) 0.0 0.0-0.1 10^3/uL D-Dimer 0.82 H 0.00-0.49 UG/ML Sodium Level 135 135-145 MMOL/L Potassium Level 3.1 L 3.6-5.0 MMOL/L Chloride Level 104 98-107 MMOL/L Carbon Dioxide Level 22 21-32 MMOL/L Anion Gap 9 5-14 MMOL/L Blood Urea Nitrogen 7 7-18 MG/DL Creatinine 0.79 0.60-1.30 MG/DL Estimat Glomerular Filtration Rate 99 BUN/Creatinine Ratio 9 Glucose Level 119 H 70-105 MG/DL Calcium Level 8.4 L 8.5-10.1 MG/DL Corrected Calcium 8.2 L 8.5-10.1 MG/DL Magnesium Level 1.8 1.6-2.4 MG/DL Total Bilirubin 0.3 0.1-1.0 MG/DL Aspartate Amino Transf (AST/SGOT) 19 5-34 U/L Alanine Aminotransferase (ALT/SGPT) 11 0-55 U/L Alkaline Phosphatase 105 40-136 U/L Total Protein 6.7 6.4-8.2 GM/DL Albumin 4.2 3.2-4.5 GM/DL Serum Test, Qualitative NEGATIVE NEGATIVE (LILLY ESPINAL MD) My Orders Orders - LILLY ESPINAL MD Cbc With Automated Diff (03/14/22 01:24) Comprehensive Metabolic Panel (03/14/22:24) Magnesium (03/14/22 01:24) Ed Iv/Invasive Line Start (03/14/22:24) Benzonatate Capsule (Tessalon Perles) (03/14/22 01:30) Fibrin Degradation Products (03/14/22 02:10) Hcg,Qualitative Serum (03/14/22 02:10) Ct Angio Chest W (03/14/22 02:37) Potassium Chloride (Tablet) (Klor Con Ta (03/14/22 02:45) Iohexol Injection (Omnipaque 350 Mg/Ml 1 (03/14/22 02:45) Received Contrast (Hold Metformin- Contr (03/14/22 02:45) Ns (Ivpb) (Sodium Chloride 0.9% Ivpb Bag (03/14/22 02:45) Ketorolac Injection (Toradol Injection) (03/14/22 04:30) (LILLY ESPINAL MD) Medications Given in ED Current Medications Medications Dose Ordered Sig/Munira Route Start Time Stop Time Status Last Admin Dose Admin Benzonatate 200 mg ONCE ONCE PO 03/14/22 01:30 03/14/22 01:31 DC 03/14/22 01:36 200 MG Iohexol 100 ml ONCE ONCE IV 03/14/22 02:45 03/14/22 02:46 DC 03/14/22 03:11 66 ML Potassium Chloride 30 meq ONCE ONCE PO 03/14/22 02:45 03/14/22 02:46 DC 03/14/22 03:19 30 MEQ Sodium Chloride 100 ml ONCE ONCE IV 03/14/22 02:45 03/14/22 02:46 DC 03/14/22 03:11 80 ML (LILLY ESPINAL MD) Vital Signs/I&O 03/14/22 03/14/22 01:25 01:36 Temp 37.4 Pulse 104 Resp 20 B/P (MAP) 127/76 (93) Pulse Ox 97 O2 Delivery Room Air Room Air O2 Flow Rate 93.00 (LILLY ESPINAL MD) Vital Signs/I&O Capillary Refill : Less Than 3 Seconds (MARQUIS NOONAN) Blood Pressure Mean: 93 Departure Impression Primary Impression: COVID-19 Additional Impressions: Hypokalemia Pleuritic chest pain Disposition: 01 HOME, SELF-CARE Condition: Improved Departure-Patient Inst. Decision time for Depature: 04:20 (LILLY ESPINAL MD) Referrals: [facility] (PCP/Family) Primary Care Physician Patient Instructions: COVID-19 Overview Add. Discharge Instructions: Drink plenty of clear liquids to stay well-hydrated. Your potassium was low. Eat some foods and drink some fluids high in potassium. Low potassium can contribute to fatigue, muscle cramping, and general ill feeling. Remain in quarantine for 5 full days from the first full day of symptoms. Then mask an additional 5 days after that. Take a multivitamin daily. Remain active by moving about the house or walking around outside frequently. Being active and changing positions often is important to improve breathing and prevent worsening of respiratory status and COVID. When you are at rest or lying in bed, change positions often. Use Tessalon Perles as prescribed for cough suppression. For pain and fever you may take ibuprofen up to 600 mg every 6 hours as needed and/or Tylenol (acetaminophen) up to 1000 mg every 6 hours as needed. There was no evidence of pneumonia or blood clots on the CT of your chest. All discharge instructions reviewed with patient and/or family. Voiced und erstanding. Scripts Benzonatate (Benzonatate) 200 Mg Capsule 200 MG PO Q8H PRN for COUGH, #20 CAP Prov: LILLY ESPINAL MD 03/14/22 Work/School Note: Work Release Form Date Seen in the Emergency Department: Mar 13, 2022 Return to Work: Mar 18, 2022 Restrictions: Return-No Fever (24hrs), Return-No Vomiting(24hrs) Other Restrictions Listed Below: Five full days of quarantine. Then mask an additional 5 days. Restrictions: Major symptoms must be resolved to discontinue quarantine. MARQUIS NOONAN Mar 14, 2022 02:12 LILLY ESPINAL MD Mar 14, 2022 04:25
[2022-03-14 02:14] LABS: BASOPHILS % (AUTO) 1 % (0-10); EOSINOPHILS % (AUTO) 1 % (0-10); HEMATOCRIT 37 % (35-52); LYMPHOCYTES # (AUTO) 0.5 10^3/uL (1.0-4.0); LYMPHOCYTES % (AUTO) 15 % (12-44); MEAN CORPUSCULAR HEMOGLOBIN 28 pg (25-34); MEAN CORPUSCULAR HGB CONC 33 g/dL (32-36); MEAN CORPUSCULAR VOLUME 86 fL (80-99); MEAN PLATELET VOLUME 11.4 fL (9.0-12.2); MONOCYTES # (AUTO) 0.6 10^3/uL (0.0-1.0); MONOCYTES % (AUTO) 16 % (0-12); NEUTROPHILS # (AUTO) 2.3 10^3/uL (1.8-7.8); NEUTROPHILS % (AUTO) 68 % (42-75); PLATELET COUNT 197 10^3/uL (130-400); WHITE BLOOD COUNT 3.5 10^3/uL (4.3-11.0)
[2022-03-14 02:19] LABS: ALBUMIN 4.2 GM/DL (3.2-4.5)
[2022-03-14 02:20] LABS: POTASSIUM 3.1 MMOL/L (3.6-5.0)
[2022-03-14 02:21] LABS: CALCIUM 8.4 MG/DL (8.5-10.1)
[2022-03-14 02:22] LABS: TOTAL PROTEIN 6.7 GM/DL (6.4-8.2)
[2022-03-14 02:24] LABS: BILIRUBIN,TOTAL 0.3 MG/DL (0.1-1.0)
[2022-03-14 02:26] LABS: CREATININE SERUM 0.79 MG/DL (0.60-1.30)
[2022-03-14 02:29] LABS: MAGNESIUM 1.8 MG/DL (1.6-2.4)
[2022-03-14] MEDS ORDERED: NS 100 ML (IVPB) BAG IV ONE (02:45)
[2022-03-14] MEDS ORDERED: IOHEXOL 350 MG/ML 100 ML (OMNIPAQUE 350) VIAL IV ONE (02:45)
[2022-03-14] MEDS ORDERED: HOLD METFORMIN - RECEIVED CONTRAST 20 ML VIAL IV SCH (02:45)
[2022-03-14] MEDS ORDERED: KCL 10 MEQ TAB (MICRO K) PO ONE (02:45)
[2022-03-14] MEDS ORDERED: BENZ200C51 PO (04:25)
[2022-03-14] MEDS ORDERED: KETOROLAC 30 MG/ML VIAL IVP ONE (04:30)
[2022-03-14 05:00] VITALS: BP 115/81
--- NOTE | 2022-03-14 08:01 | Diagnostic Imaging Report ---
PROCEDURE: CT angiography of the chest with contrast. TECHNIQUE: Multiple contiguous axial images were obtained through the chest after uneventful bolus administration of intravenous contrast. 3D reconstructed CTA MIP acquisitions were also performed. Auto Exposure Controls were utilized during the CT exam to meet ALARA standards for radiation dose reduction. INDICATION: Cough and COVID. There are no pulmonary arterial filling defects or PE demonstrated. There is no pleural or pericardial effusion. No groundglass pulmonary opacity or other infiltrative pattern. No lung mass or thoracic adenopathy. No chest wall lesion. The visualized upper abdomen nonacute. The thoracic aorta patent and nonaneurysmal and nonacute. IMPRESSION: Unremarkable CT angiogram chest. Dictated by: Dictated on workstation # [id number]
== END 2022-03-14 05:02 | disposition home or self-care (01) ==
LOC: EDUNIT# 01:15 → ER 01:19
DX: U07.1 COVID-19 (principal); E87.6 Hypokalemia; R07.81 Pleurodynia; Z98.890 Other specified postprocedural states; Z73.0 Burn-out
CPT/HCPCS: 36415; 71275; 80053; 83735; 84703; 85025; 85379

== ENCOUNTER 2022-03-16 12:58 | Emergency (ER) | payer OTHER ==
[~2022-03-16 12:58] MED LIST changes: +BENZ200C51 PO
[2022-03-16 13:19] LABS: BASOPHILS % (AUTO) 0 % (0-10); EOSINOPHILS # (AUTO) 0.1 10^3/uL (0.0-0.3); EOSINOPHILS % (AUTO) 3 % (0-10); HEMATOCRIT 44 % (35-52); HEMOGLOBIN 13.9 g/dL (11.5-16.0); LYMPHOCYTES # (AUTO) 1.6 10^3/uL (1.0-4.0); LYMPHOCYTES % (AUTO) 47 % (12-44); MEAN CORPUSCULAR HEMOGLOBIN 28 pg (25-34); MEAN CORPUSCULAR HGB CONC 32 g/dL (32-36); MEAN CORPUSCULAR VOLUME 89 fL (80-99); MEAN PLATELET VOLUME 11.5 fL (9.0-12.2); MONOCYTES # (AUTO) 0.4 10^3/uL (0.0-1.0); MONOCYTES % (AUTO) 12 % (0-12); NEUTROPHILS # (AUTO) 1.2 10^3/uL (1.8-7.8); NEUTROPHILS % (AUTO) 38 % (42-75); PLATELET COUNT 214 10^3/uL (130-400); WHITE BLOOD COUNT 3.3 10^3/uL (4.3-11.0)
--- NOTE | 2022-03-16 13:23 | ED General ---
General Chief Complaint: COVID19 Suspect/Confirmed Stated Complaint: COVID +/CHILLS/COUGHING UP BLOOD Nursing Triage Note: Patient was seen 03/14/22 with dx. of covid. Patient states that she thought she was getting better, however symptoms have become worse. She advised she has been coughing and has been coughing up blood as well as experiencing chills. Source of Information: Patient Exam Limitations: No Limitations History of Present Illness Date Seen by Provider: Mar 16, 2022 Time Seen by Provider: 13:10 Initial Comments This is a 37-year-old female who presented to the ER with concerns of blood- tinged mucus. She was diagnosed with COVID on 03/14/2022, she had brown-tinged sputum at that time and received a CT angio of her chest to rule out pulmonary embolism. Her CT angio on the was negative for PE. Reports persistent coughing, chills, and bright blood in her mucus today. She denies chest pain nor does she feel short of breath. Has been taken ehvo-kla-gmxlapo Robitussin and Tessalon perles with no relief of symptoms. She is fully vaccinated with lexie osters, has no increased risk factor for worsening symptomology of COVID virus. Allergies and Home Medications Allergies Coded Allergies: Penicillins (Unverified Allergy, Unknown, 12/02/17) Patient Home Medication List Home Medication List Reviewed: Yes Benzonatate (Benzonatate) 200 Mg Capsule, 200 MG PO Q8H PRN for COUGH Prescribed by: LILLY NIEVES on 03/14/22 0425 Cephalexin (Cephalexin) 500 Mg Tablet, 500 MG PO TID Prescribed by: KENN AGOSTO on 08/29/202005 Dexamethasone (Dexamethasone) 6 Mg Tablet, 6 MG PO DAILY Prescribed by: MARIA LUISA MONGE on 03/16/22 1407 Meclizine HCl (Meclizine HCl) 25 Mg Tablet, 25 MG PO DAILY Prescribed by: KENN AGOSTO on 02/09/20 1353 Multivit with Calcium,Iron,Min (Women's Daily Formula) 1 Each Tablet, 1 EACH PO DAILY, (Reported) Entered as Reported by: MINNIE PONCE on 05/09/16 2341 Ondansetron (Ondansetron Odt) 8 Mg Tab.rapdis, 8 MG PO Q6H PRN for NAUSEA/VOMITING-1ST LINE Prescribed by: FREDERICK ANSARI on 08/18/17 1352 Ondansetron (Ondansetron Odt) 4 Mg Tab.rapdis, (Reported) Entered as Reported by: SHAHANA MADRIGAL on 06/04/20 0438 Ondansetron (Ondansetron Odt) 8 Mg Tab.rapdis, 8 MG PO Q6H PRN for NAUSEA/VOMITING Prescribed by: KENN AGOSTO on 10/18/21 1834 Promethazine HCl/Codeine (Prometh-Codein 6.25-10 mg/5 ml) 6.25 Mg-10 Mg/5 Ml (5 Ml) Syrup, 5 ML PO Q12H PRN for COUGH Prescribed by: MARIA LUISA MONGE on 03/16/22 1414 Review of Systems Review of Systems Constitutional: see HPI EENTM: no symptoms reported Respiratory: see HPI Cardiovascular: no symptoms reported Gastrointestinal: no symptoms reported Genitourinary: no symptoms reported Skin: no symptoms reported Psychiatric/Neurological: No Symptoms Reported Past Ieynxjy-Wimnth-Ckyqqd Hx Patient Social History Tobacco Use?: No Substance use?: No Alcohol Use?: No Immunizations Up To Date Tetanus Booster (TDap): Unknown PED Vaccines UTD: Yes First/Initial COVID19 Vaccinat: 2020 Second COVID19 Vaccination Sánchez: 2020 Third COVID19 Vaccination Date: 2020 Seasonal Allergies Seasonal Allergies: Yes Past Medical History Surgery/Hospitalization HX: PP DEPRESSION, ANXIETY Surgeries: Yes (ablation for SVT; D&C 08/2019) Cardiac, Section Respiratory: No Cardiac: Yes (SVT status post ablation) Irregular Heartbeat, Palpitations Neurological: No Last Menstrual Period: Mar 16, 2022 Reproductive Disorders: No Female Reproductive Disorders: Denies Sexually Transmitted Disease: No HIV/AIDS: No Genitourinary: No Gastrointestinal: No Musculoskeletal: No Endocrine: No HEENT: No Cancer: No Psychosocial: No Integumentary: No Blood Disorders: No Family Medical History No Pertinent Family Hx Physical Exam Vital Signs Vital Signs - First Documented 03/16/22 13:04 Pulse 90 Resp 18 B/P (MAP) 133/98 (110) Pulse Ox 99 O2 Delivery Room Air Capillary Refill : Less Than 3 Seconds Height, Weight, BMI Height: 5'3.00" Weight: 145lbs. 0oz. 65.097485sb; 27.00 BMI Method:Stated General Appearance: No Apparent Distress, WD/WN Eyes: Bilateral Eye Normal Inspection, Bilateral Eye PERRL, Bilateral Eye EOMI HEENT: PERRL/EOMI, Normal ENT Inspection, Pharynx Normal, Moist Mucous Membranes; No Tonsillar Enlargement Neck: Full Range of Motion, Normal Inspection, Supple Respiratory: Lungs Clear, Normal Breath Sounds, No Accessory Muscle Use, No Respiratory Distress; No Pleural Rub Cardiovascular: Regular Rate, Rhythm, No Murmur, Normal Peripheral Pulses; No Friction Rub Gastrointestinal: Normal Bowel Sounds, Non Tender, Soft Extremity: Normal Capillary Refill, Normal Inspection Neurologic/Psychiatric: Alert, Oriented x3, No Motor/Sensory Deficits, Normal Mood/Affect Skin: Normal Color, Warm/Dry Progress/Results/Core Measures Suspected Sepsis SIRS Temperature: Pulse: 90 Respiratory Rate: 18 Laboratory Tests 03/16/22 13:08: White Blood Count 3.3L Blood Pressure 133 /98 Mean: 110 Laboratory Tests 03/16/22 13:08: Creatinine 0.75, Platelet Count 214, Total Bilirubin 0.2 Results/Orders Lab Results Laboratory Tests Test 03/16/22 13:08 Range/Units White Blood Count 3.3 L 4.3-11.0 10^3/uL Red Blood Count 4.91 3.80-5.11 10^6/uL Hemoglobin 13.9 11.5-16.0 g/dL Hematocrit 44 35-52 % Mean Corpuscular Volume 89 80-99 fL Mean Corpuscular Hemoglobin 28 25-34 pg Mean Corpuscular Hemoglobin Concent 32 32-36 g/dL Red Cell Distribution Width 13.7 10.0-14.5 % Platelet Count 214 130-400 10^3/uL Mean Platelet Volume 11.5 9.0-12.2 fL Immature Granulocyte % (Auto) 0 % Neutrophils (%) (Auto) 38 L 42-75 % Lymphocytes (%) (Auto) 47 H 12-44 % Monocytes (%) (Auto) 12 0-12 % Eosinophils (%) (Auto) 3 0-10 % Basophils (%) (Auto) 0 0-10 % Neutrophils # (Auto) 1.2 L 1.8-7.8 10^3/uL Lymphocytes # (Auto) 1.6 1.0-4.0 10^3/uL Monocytes # (Auto) 0.4 0.0-1.0 10^3/uL Eosinophils # (Auto) 0.1 0.0-0.3 10^3/uL Basophils # (Auto) 0.0 0.0-0.1 10^3/uL Immature Granulocyte # (Auto) 0.0 0.0-0.1 10^3/uL Sodium Level 142 135-145 MMOL/L Potassium Level 3.8 3.6-5.0 MMOL/L Chloride Level 107 98-107 MMOL/L Carbon Dioxide Level 29 21-32 MMOL/L Anion Gap 6 5-14 MMOL/L Blood Urea Nitrogen 7 7-18 MG/DL Creatinine 0.75 0.60-1.30 MG/DL Estimat Glomerular Filtration Rate 105 BUN/Creatinine Ratio 9 Glucose Level 80 70-105 MG/DL Calcium Level 8.6 8.5-10.1 MG/DL Corrected Calcium 8.4 L 8.5-10.1 MG/DL Total Bilirubin 0.2 0.1-1.0 MG/DL Aspartate Amino Transf (AST/SGOT) 20 5-34 U/L Alanine Aminotransferase (ALT/SGPT) 8 0-55 U/L Alkaline Phosphatase 88 40-136 U/L C-Reactive Protein High Sensitivity 0.72 H 0.00-0.50 MG/DL Total Protein 7.2 6.4-8.2 GM/DL Albumin 4.3 3.2-4.5 GM/DL My Orders Orders - MARIA LUISA MONGE APRN Hs C Reactive Protein (03/16/22 13:08) Cbc With Automated Diff (03/16/22 13:08) Comprehensive Metabolic Panel (03/16/22 13:08) Chest 1 View, Ap/Pa Only (03/16/22 13:08) Dexamethasone Injection (Decadron Inje (03/16/22 13:45) Promethazine/ Codeine Syrup (Phenergan W (03/16/22 14:00) Medications Given in ED Vital Signs/I&O 03/16/22 03/16/22 13:04 15:35 Pulse 90 73 Resp 18 18 B/P (MAP) 133/98 (110) 102/76 Pulse Ox 99 99 O2 Delivery Room Air Room Air Capillary Refill : Less Than 3 Seconds Blood Pressure Mean: 110 Progress Note : Progress Note Has dry hacking cough upon arrival, her CT angio from 2 days ago was negative, repeated chest x-ray was unremarkable. Her exam is unremarkable, vital signs stable oxygen 99% on room air, no increased effort, lungs clear. Discussed that her symptoms are likely related to persistent coughing and inflammation. Was able to cough up small amount of slightly brown tinged mucus, no bright red blood or active bleeding appreciated. Basic labs unremarkable. Guaifenesin with codeine sent to pharmacy. Strict return precautions provided. Discharge POC reviewed and she is agreeable with plan. Diagnostic Imaging Diagonstic Imaging: Xray Plain Films/CT/US/NM/MRI: chest Comments [facility]. [place], [place] NAME: ADE DOS SANTOS [facility] REC#: [id number] PT STATUS: REG ER : 1985 PHYSICIAN: MARIA LUISA MONGE DIRECTOR DIGITAL ADMIT DATE: 03/16/22/ER Signed Date of Exam:03/16/22 CHEST 1 VIEW, AP/PA ONLY INDICATION: Bloody mucus with cough, COVID patient. COMPARISON: 08/18/2017. FINDINGS: The lungs are clear. No failure, effusion, or pneumothorax. IMPRESSION: No acute appearing abnormality. Dictated by: Dictated on workstation # [id number] Dict: 03/16/22 1326 Trans: 03/16/22 1449 [id number] Interpreted by: ALIVIA HERNANDEZ Electronically signed by: ALIVIA HERNANDEZ 03/16/22 1449 Departure Impression Primary Impression: COVID-19 Disposition: 01 HOME, SELF-CARE Condition: Stable Departure-Patient Inst. Decision time for Depature: 14:09 Referrals: [facility] (PCP/Family) Primary Care Physician Patient Instructions: COVID-19 (DC) Add. Discharge Instructions: Plan: 1. Continue to isolate as previously directed. 2. Take your steroids daily as directed with food to help prevent GI upset, your first dose was given in the ER today. 3. You can use your cough syrup as directed, may cause sleepiness so do not drive while taking. 4. Return to the ER if you have any new, concerning, worsening symptoms. All discharge instructions reviewed with patient and/or family. Voiced understanding. Scripts Promethazine HCl/Codeine (Prometh-Codein 6.25-10 mg/5 ml) 6.25 Mg-10 Mg/5 Ml (5 Ml) Syrup 5 ML PO Q12H PRN for COUGH, #240 ML 0 Refills Prov: MARIA LUISA MONGE APRN 03/16/22 Dexamethasone (Dexamethasone) 6 Mg Tablet 6 MG PO DAILY for 7 Days, #6 TAB 0 Refills Prov: MARIA LUISA MONGE APRN 03/16/22 Copy Copies To 1: [facility]/MARIA LUISA OSMAN APRN Mar 16, 2022 13:23
--- NOTE | 2022-03-16 13:31 | Diagnostic Imaging Report ---
INDICATION: Bloody mucus with cough, COVID patient. COMPARISON: 08/18/2017. FINDINGS: The lungs are clear. No failure, effusion, or pneumothorax. IMPRESSION: No acute appearing abnormality. Dictated by: Dictated on workstation # [id number]
[2022-03-16 13:41] LABS: ALBUMIN 4.3 GM/DL (3.2-4.5); POTASSIUM 3.8 MMOL/L (3.6-5.0)
[2022-03-16 13:43] LABS: CALCIUM 8.6 MG/DL (8.5-10.1)
[2022-03-16 13:44] LABS: TOTAL PROTEIN 7.2 GM/DL (6.4-8.2)
[2022-03-16 13:46] LABS: BILIRUBIN,TOTAL 0.2 MG/DL (0.1-1.0)
[2022-03-16 13:48] LABS: CREATININE SERUM 0.75 MG/DL (0.60-1.30)
[2022-03-16] MEDS ORDERED: PROMETHAZINE/ CODEINE SYRUP 5 ML UDC PO ONE (14:00)
[2022-03-16] MEDS ORDERED: DEXA6TAB PO (14:07)
[2022-03-16] MEDS ORDERED: PROM5SYR PO (14:13)
[2022-03-16 15:35] VITALS: BP 102/76
== END 2022-03-16 15:35 | disposition home or self-care (01) ==
LOC: EDUNIT# 12:58 → ER 13:00
DX: U07.1 COVID-19 (principal); R05.9 Cough, unspecified; Z73.0 Burn-out
CPT/HCPCS: 36415; 71045; 80053; 85025; 86141

== ENCOUNTER 2023-05-12 09:58 | Emergency (ER) | payer BC ==
[~2023-05-12] VITALS: Ht 165 cm; Wt 86.0 kg
[~2023-05-12 09:58] MED LIST changes: +DEXA6TAB PO; -MECL-149 PO; +MECL-291 PO; +PROM5SYR PO
[2023-05-12] MEDS ORDERED: ONDANSETRON INJECTION 4 MG/2 ML (SDV) IVP ONE (10:30)
[2023-05-12] MEDS ORDERED: LACTATED RINGERS 1,000 ML 1,000 ML IV ONE (10:30)
[2023-05-12 10:34] LABS: BASOPHILS % (AUTO) 0 % (0-10); EOSINOPHILS # (AUTO) 0.2 10^3/uL (0.0-0.3); EOSINOPHILS % (AUTO) 3 % (0-10); HEMATOCRIT 42 % (35-52); HEMOGLOBIN 13.5 g/dL (11.5-16.0); LYMPHOCYTES # (AUTO) 1.7 10^3/uL (1.0-4.0); LYMPHOCYTES % (AUTO) 25 % (12-44); MEAN CORPUSCULAR HEMOGLOBIN 28 pg (25-34); MEAN CORPUSCULAR HGB CONC 33 g/dL (32-36); MEAN CORPUSCULAR VOLUME 87 fL (80-99); MEAN PLATELET VOLUME 11.1 fL (9.0-12.2); MONOCYTES # (AUTO) 0.7 10^3/uL (0.0-1.0); MONOCYTES % (AUTO) 11 % (0-12); NEUTROPHILS # (AUTO) 4.2 10^3/uL (1.8-7.8); NEUTROPHILS % (AUTO) 61 % (42-75); PLATELET COUNT 260 10^3/uL (130-400); WHITE BLOOD COUNT 6.8 10^3/uL (4.3-11.0)
--- NOTE | 2023-05-12 10:41 | ED GU-Female ---
General Chief Complaint: General Problems/Pain Stated Complaint: COVID+ | MISCARRIAGE | LIGHTHEADED Nursing Triage Note: PT AMBULATES TO RM 10 WITH C/O LIGHTHEADEDNESS AND BLOOD IN URINE THAT STARTED THIS MORNING AND REPORTS BLOOD CLOTS PRESENT. PT REPORTS THIS IS HER 7TH MISCARRIAGE. Source: patient Exam Limitations: no limitations History of Present Illness Date Seen by Provider: May 12, 2023 Time Seen by Provider: 10:10 Initial Comments This 38-year-old woman presents to the emergency room with concerns about heavy bleeding with a miscarriage in progress. She reports miscarriage was confirmed by declining hCG values obtained by her swat team member, Dr. Lopez at [facility] in [place]. 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 She has never noted such heavy bleeding with a prior miscarriage. She started bleeding yesterday and continues to bleed this morning. She has been passing clots with the bleeding. She reports associated symptoms of cramping and lightheadedness. She presently also has COVID-19 which convoluted to the presentation. She has h ad nausea, vomiting, fever, and chills that are likely associated with the COVID-19 infection. She believes her overall status is 13 para 1 including this . She was about 7 weeks gestational age. She has an ultrasound scheduled next week to confirm completion of the miscarriage. She has required D&C in the past. Her primary care provider is Yany Oliveira at [facility]. She has mild tachycardia during triage. Vital signs are otherwise within normal limits. Allergies and Home Medications Allergies Coded Allergies: Penicillins (Unverified Allergy, Unknown, 12/02/17) Patient Home Medication List Home Medication List Reviewed: Yes Benzonatate (Benzonatate) 200 Mg Capsule, 200 MG PO Q8H PRN for COUGH Prescribed by: LILLY NIEVES on 03/14/22 0425 Cephalexin (Cephalexin) 500 Mg Tablet, 500 MG PO TID Prescribed by: KENN AGOSTO on 08/29/202005 Dexamethasone (Dexamethasone) 6 Mg Tablet, 6 MG PO DAILY Prescribed by: MARIA LUISA MONGE on 03/16/22 1407 Meclizine HCl (Meclizine HCl) 25 Mg Tablet, 25 MG PO DAILY Prescribed by: KENN AGOSTO on 02/09/20 1353 Multivit with Calcium,Iron,Min (Women's Daily Formula) 1 Each Tablet, 1 EACH PO DAILY, (Reported) Entered as Reported by: MINNIE PONCE on 05/09/16 2341 Ondansetron (Ondansetron Odt) 8 Mg Tab.rapdis, 8 MG PO Q6H PRN for NAUSEA/VOMITING-1ST LINE Prescribed by: FREDERICK ANSARI on 08/18/17 1352 Ondansetron (Ondansetron Odt) 4 Mg Tab.rapdis, (Reported) Entered as Reported by: SHAHANA MADRIGAL on 06/04/20 0438 Ondansetron (Ondansetron Odt) 8 Mg Tab.rapdis, 8 MG PO Q6H PRN for NAUSEA/VOMI TING Prescribed by: KENN AGOSTO on 10/18/21 1834 Ondansetron (Ondansetron Odt) 4 Mg Tab.rapdis, 4 MG SL Q4H PRN for NAUSEA/VOMITING Prescribed by: LILLY NIEVES on 05/12/23 1147 Promethazine HCl/Codeine (Prometh-Codein 6.25-10 mg/5 ml) 6.25 Mg-10 Mg/5 Ml (5 Ml) Syrup, 5 ML PO Q12H PRN for COUGH Prescribed by: MARIA LUISA MONGE on 03/16/22 1414 Review of Systems Review of Systems Constitutional: see HPI EENTM: no symptoms reported Respiratory: no symptoms reported Cardiovascular: see HPI Gastrointestinal: see HPI Genitourinary: see HPI : No (Presently miscarrying) Musculoskeletal: no symptoms reported Skin: no symptoms reported Psychiatric/Neurological: No Symptoms Reported Endocrine: No Symptoms Reported Hematologic/Lymphatic: See HPI Past Tpqwbch-Rxxgby-Skecgz Hx Patient Social History Tobacco Use?: No Use of E-Cig and/or Vaping dev: No Substance use?: No Alcohol Use?: No Immunizations Up To Date Tetanus Booster (TDap): Unknown PED Vaccines UTD: Yes Influenza Vaccine Up-to-Date: Yes; Up-to-Date First/Initial COVID19 Vaccinat: 2020 Second COVID19 Vaccination Sánchez: 2020 Third COVID19 Vaccination Date: 2020 Seasonal Allergies Seasonal Allergies: Yes Past Medical History Surgery/Hospitalization HX: PP DEPRESSION, ANXIETY Surgeries: Yes (ablation for SVT; D&C 08/2019) Cardiac (Ablation for treatment of SVT), Section Respiratory: No Cardiac: Yes (SVT status post ablation) Irregular Heartbeat, Palpitations Neurological: No : No (Presently miscarrying) Hx : 13 Hx Para: 1 Reproductive Disorders: Yes (Recurrent miscarriages) Female Reproductive Disorders: Denies Sexually Transmitted Disease: No HIV/AIDS: No Genitourinary: No Gastrointestinal: No Musculoskeletal: No Endocrine: No HEENT: No Cancer: No Psychosocial: No Integumentary: No Blood Disorders: No Family Medical History No Pertinent Family Hx Physical Exam Vital Signs Vital Signs - First Documented 05/12/23 10:12 Temp 37.0 Pulse 107 Resp 22 B/P (MAP) 100/75 (83) Pulse Ox 98 O2 Delivery Room Air Capillary Refill : Less Than 3 Seconds Height, Weight, BMI Height: 5'3.00" Weight: 145lbs. 0oz. 65.661826wd; 31.00 BMI Method:Stated General Appearance: WD/WN, other (Tearful, emotionally distressed) HEENT: PERRL/EOMI, normal ENT inspection Neck: normal inspection Cardiovascular: no edema, no murmur, tachycardia (Regular) Respiratory: lungs clear, normal breath sounds, no respiratory distress Gastrointestinal: normal bowel sounds, non tender, soft; No distended Extremities: normal inspection, no pedal edema Neurologic/Psychiatric: no motor/sensory deficits, alert, oriented x 3, other (Tearful) Skin: normal color, warm/dry Progress/Results/Core Measures Suspected Sepsis SIRS Temperature: Pulse: 107 Respiratory Rate: 22 Laboratory Tests 05/12/23 10:25: White Blood Count 6.8 Blood Pressure 100 /75 Mean: 83 Laboratory Tests 05/12/23 10:25: Creatinine 0.75, INR Comment 1.0, Platelet Count 260, Total Bilirubin 0.4 Results/Orders Lab Results Laboratory Tests Test 05/12/23 10:15 05/12/23 10:25 Range/Units Urine Color RED H Urine Clarity CLOUDY Urine pH >=9.0 5-9 Urine Specific [place] 1.015 L 1.016-1.022 Urine Protein 2+ H NEGATIVE Urine Glucose (UA) NEGATIVE NEGATIVE Urine Ketones NEGATIVE NEGATIVE Urine Nitrite NEGATIVE NEGATIVE Urine Bilirubin NEGATIVE NEGATIVE Urine Urobilinogen 0.2 < = 1.0 MG/DL Urine Leukocyte Esterase NEGATIVE NEGATIVE Urine RBC (Auto) 3+ H NEGATIVE Urine RBC >100 H /HPF Urine WBC NONE /HPF Urine Squamous Epithelial Cells 0-2 /HPF Urine Crystals NONE /LPF Urine Bacteria NEGATIVE /HPF Urine Casts NONE /LPF Urine Mucus SMALL H /LPF Urine Culture Indicated NO White Blood Count 6.8 4.3-11.0 10^3/uL Red Blood Count 4.80 3.80-5.11 10^6/uL Hemoglobin 13.5 11.5-16.0 g/dL Hematocrit 42 35-52 % Mean Corpuscular Volume 87 80-99 fL Mean Corpuscular Hemoglobin 28 25-34 pg Mean Corpuscular Hemoglobin Concent 33 32-36 g/dL Red Cell Distribution Width 14.3 10.0-14.5 % Platelet Count 260 130-400 10^3/uL Mean Platelet Volume 11.1 9.0-12.2 fL Immature Granulocyte % (Auto) 0 % Neutrophils (%) (Auto) 61 42-75 % Lymphocytes (%) (Auto) 25 12-44 % Monocytes (%) (Auto) 11 0-12 % Eosinophils (%) (Auto) 3 0-10 % Basophils (%) (Auto) 0 0-10 % Neutrophils # (Auto) 4.2 1.8-7.8 10^3/uL Lymphocytes # (Auto) 1.7 1.0-4.0 10^3/uL Monocytes # (Auto) 0.7 0.0-1.0 10^3/uL Eosinophils # (Auto) 0.2 0.0-0.3 10^3/uL Basophils # (Auto) 0.0 0.0-0.1 10^3/uL Immature Granulocyte # (Auto) 0.0 0.0-0.1 10^3/uL Prothrombin Time 13.9 12.2-14.7 SEC INR Comment 1.0 0.8-1.4 Activated Partial Thromboplast Time 32 24-35 SEC Sodium Level 140 135-145 MMOL/L Potassium Level 3.9 3.6-5.0 MMOL/L Chloride Level 107 98-107 MMOL/L Carbon Dioxide Level 24 21-32 MMOL/L Anion Gap 9 5-14 MMOL/L Blood Urea Nitrogen 6 L 7-18 MG/DL Creatinine 0.75 0.60-1.30 MG/DL Estimat Glomerular Filtration Rate 104 BUN/Creatinine Ratio 8 Glucose Level 95 70-105 MG/DL Calcium Level 9.1 8.5-10.1 MG/DL Corrected Calcium 8.8 8.5-10.1 MG/DL Magnesium Level 2.3 1.6-2.4 MG/DL Total Bilirubin 0.4 0.1-1.0 MG/DL Aspartate Amino Transf (AST/SGOT) 15 5-34 U/L Alanine Aminotransferase (ALT/SGPT) 6 0-55 U/L Alkaline Phosphatase 88 40-136 U/L Total Protein 7.6 6.4-8.2 GM/DL Albumin 4.4 3.2-4.5 GM/DL Human Chorionic Gonadotropin, Quant < 5 <5 MIU/ML My Orders Orders - LILLY WELLS MD Cbc And Automated Diff (05/12/23 10:19) Comprehensive Metabolic Panel (05/12/23 10:19) Hcg,Quantitative (05/12/23 10:19) Magnesium (05/12/23 10:19) Ua Culture If Indicated (05/12/23 10:19) Ed Iv/Invasive Line Start (05/12/23 10:19) Lactated Ringers 1,000 Ml (Lactated Ring (05/12/23 10:30) Ondansetron Injection (Ondansetron Inj (05/12/23 10:30) Us Ob Transvaginal [id number] (05/12/23 10:19) Protime With Inr (05/12/23 10:19) Partial Thromboplastin Time (05/12/23 10:19) Medications Given in ED Vital Signs/I&O Capillary Refill : Less Than 3 Seconds Blood Pressure Mean: 83 Progress Note : Progress Note Aileen was interviewed and examined. She was treated with a liter of LR and Zofran. Labs were obtained and interpreted by me. CBC, CMP, coag panel, and magnesium were all unremarkable. Serum hCG quantitative value was undetectable. Urinalysis was contaminated by blood and was otherwise unremarkable. Patient was feeling improved after treatment. Ultrasound was obtained revealing an empty uterus with no evidence of ectopic . I discussed findings with the soils technician. See report below. See discharge instructions for further discussion. Diagnostic Imaging Diagonstic Imaging: Ultrasound Plain Films/CT/US/NM/MRI: pelvis Comments NAME: AILEEN DOS [facility] REC#: [id number] PT STATUS: DEP ER : 1985 PHYSICIAN: LILLY WELLS MD ADMIT DATE: 05/12/23/ER Signed Date of Exam:05/12/23 OB TRANSVAGINAL [id number] INDICATION: Recent miscarriage. Study is performed to evaluate for retained products of conception. FINDINGS: Uterus measures 8.9 x 4.2 x 5.7 cm. Endometrium is 3 mm in thickness. No intrauterine gestational sac is identified. There is no evidence of retained products of conception. No myometrial mass is identified. Right ovary measures 2.2 x 1.4 x 3.2 cm, and the left ovary measures 2.4 x 1.8 x 2.5 cm. Both ovaries contain small follicles. There is blood flow to both ovaries. No adnexal mass is identified. There is no free fluid. IMPRESSION: 1. No evidence of intrauterine or ectopic . There are no findings to suggest retained products of conception. Dictated by: Dictated on workstation # [id number] Dict: 05/12/23 1157 Trans: 05/12/23 1557 [id number] Interpreted by: WANG CAMPBELL MD Electronically signed by: WANG CAMPBELL MD 05/12/23 1557 Departure Impression Primary Impression: Miscarriage Additional Impressions: COVID-19 Nausea & vomiting Qualified Codes: R11.2 - Nausea with vomiting, unspecified Disposition: 01 HOME, SELF-CARE Condition: Stable Departure-Patient Inst. Decision time for Depature: 11:45 Referrals: ARUNA OLIVEIRA APRN (PCP/Family) Primary Care Physician Patient Instructions: COVID-19 ED, Miscarriage (DC) Add. Discharge Instructions: You may take Tylenol (acetaminophen) up to 1000 mg every 6 hours as needed and/or ibuprofen up to 600 mg every 6 hours as needed for pain and cramping. Drink plenty of clear liquids to stay well-hydrated. You may use Zofran as prescribed for nausea or vomiting. Return to the emergency room if you have worsening symptoms despite following these instructions. Please contact your swat team member for further instructions regarding miscarriage and follow-up care. All discharge instructions reviewed with patient and/or family. Voiced understanding. Scripts Ondansetron (Ondansetron Odt) 4 Mg Tab.rapdis 4 MG SL Q4H PRN for NAUSEA/VOMITING, #10 TAB Prov: LILLY WELLS MD 05/12/23 Copy Copies To 1: [facility] [place] LILLY WELLS MD May 12, 2023 10:41
[2023-05-12 10:44] LABS: BILIRUBIN,URINE NEGATIVE (NEGATIVE); CLARITY,URINE CLOUDY; COLOR,URINE RED; GLUCOSE, URINE (UA) NEGATIVE (NEGATIVE); KETONES,URINE NEGATIVE (NEGATIVE); NITRITE,URINE NEGATIVE (NEGATIVE); PH,URINE >=9.0 (5-9); PROTEIN,URINE 2+ (NEGATIVE)
[2023-05-12 10:45] LABS: ALBUMIN 4.4 GM/DL (3.2-4.5); CHLORIDE 107 MMOL/L (98-107); POTASSIUM 3.9 MMOL/L (3.6-5.0); SODIUM 140 MMOL/L (135-145)
[2023-05-12 10:45] LABS: BACTERIA,URINE NEGATIVE /HPF; LEUKOCYTE ESTERASE ,URINE NEGATIVE (NEGATIVE); RBC,URINE >100 /HPF; SQUAMOUS EPITHELIAL CELL,UR 0-2 /HPF
[2023-05-12 10:47] LABS: CALCIUM 9.1 MG/DL (8.5-10.1)
[2023-05-12 10:48] LABS: GLUCOSE 95 MG/DL (70-105); TOTAL PROTEIN 7.6 GM/DL (6.4-8.2)
[2023-05-12 10:49] LABS: CARBON DIOXIDE 24 MMOL/L (21-32)
[2023-05-12 10:50] LABS: BILIRUBIN,TOTAL 0.4 MG/DL (0.1-1.0)
[2023-05-12 10:51] LABS: ALKALINE PHOSPHATASE 88 U/L (40-136); PROTHROMBIN TIME PATIENT 13.9 SEC (12.2-14.7)
[2023-05-12 10:52] LABS: CREATININE SERUM 0.75 MG/DL (0.60-1.30); GFR ESTIMATED 104
[2023-05-12 10:53] LABS: BUN/CREATININE RATIO 8
[2023-05-12 10:54] LABS: ALANINE AMINOTRANSFERASE 6 U/L (0-55); MAGNESIUM 2.3 MG/DL (1.6-2.4)
[2023-05-12] MEDS ORDERED: ONDA4TAB11 SL (11:47)
[2023-05-12 11:51] VITALS: BP 110/75
--- NOTE | 2023-05-12 12:01 | Diagnostic Imaging Report ---
INDICATION: Recent miscarriage. Study is performed to evaluate for retained products of conception. FINDINGS: Uterus measures 8.9 x 4.2 x 5.7 cm. Endometrium is 3 mm in thickness. No intrauterine gestational sac is identified. There is no evidence of retained products of conception. No myometrial mass is identified. Right ovary measures 2.2 x 1.4 x 3.2 cm, and the left ovary measures 2.4 x 1.8 x 2.5 cm. Both ovaries contain small follicles. There is blood flow to both ovaries. No adnexal mass is identified. There is no free fluid. IMPRESSION: 1. No evidence of intrauterine or ectopic . There are no findings to suggest retained products of conception. Dictated by: Dictated on workstation # [id number]
== END 2023-05-12 11:54 | disposition home or self-care (01) ==
LOC: EDUNIT# 09:58 → ER 10:00
DX: U07.1 COVID-19 (principal); O03.9 Complete or unspecified spontaneous abortion without complication; R11.2 Nausea with vomiting, unspecified; Z73.0 Burn-out
CPT/HCPCS: 36415; 76817; 80053; 81000; 83735; 84702; 85025; 85610; 85730